=== PATIENT | male | born 1950 | race Caucasian/White ===

== ENCOUNTER → 2016-12-09 | Outpatient (CLI) | payer MEDICARE ==
[2016-12-09 14:43] LABS: Basophils # (A) 0.1 k/uL (0-0.2); Basophils % (A) 1 %; CH 30.9; CHCM 33.3; Eosinophils # (A) 0.3 k/uL (0-0.7); Eosinophils % (A) 3 %; HDW 2.51; HGB 14.2 gm/dL (13.0-17.5); Luc # (Auto) 0.32; Luc % (Auto) 3; Lymphocytes # (A) 2.4 k/uL (1.0-4.8); Lymphocytes % (A) 26 %; MCH 30.7 pg (25.0-35.0); MCHC 32.9 g/dL (31.0-37.0); MCV 93.3 fL (80.0-100.0); Mean Platelet Volume 8.1; Monocytes # (A) 0.7 k/uL (0-1.0); Monocytes % (A) 7 %; Neutrophils # (A) 5.7 k/uL (1.3-7.7); Neutrophils % (A) 60 %; RBC 4.61 m/uL (4.30-5.90); RDW 13.3 % (11.5-15.5); WBC 9.4 k/uL (3.8-10.6); WBC (Perox) 9.65
[2016-12-09 15:09] LABS: ALT 35 U/L (21-72); AST 23 U/L (17-59); Alkaline Phosphatase 61 U/L (38-126); Anion Gap 11 mmol/L; Blood Urea Nitrogen 21 mg/dL (9-20); C Reactive Protein 5.8 mg/L (<10.0); Calcium 10.2 mg/dL (8.4-10.2); Carbon Dioxide 26 mmol/L (22-30); Chloride 103 mmol/L (98-107); Creatine Kinase 63 U/L (55-170); Glucose 76 mg/dL (74-99); Non-African American GFR(MDRD) >60 (>60 ml/min/1.73 sqM); Potassium 4.2 mmol/L (3.5-5.1); Sodium 140 mmol/L (137-145); Total Bilirubin 0.4 mg/dL (0.2-1.3); Total Protein 6.9 g/dL (6.3-8.2)
[2016-12-09 16:17] LABS: Erythrocyte Sedimentation Rate 11 mm/hr (0-15)
[2016-12-10 01:05] LABS: Hemoglobin A1C 5.5 % (4.2-6.1)
== END ==
LOC: LABWHC1 13:51
PROVIDERS: ATTEND Internal Medicine
DX: J44.9 Chronic obstructive pulmonary disease, unspecified (principal); E78.5 Hyperlipidemia, unspecified; E11.9 Type 2 diabetes mellitus without complications; I10 Essential (primary) hypertension
CPT/HCPCS: 36415; 80053; 82550; 83036; 84439; 84443; 85025; 85652; 86140

== ENCOUNTER → 2017-06-15 | Outpatient (CLI) | payer MEDICARE ==
[2017-06-15 14:48] LABS: Basophils # (A) 0.1 k/uL (0-0.2); Basophils % (A) 1 %; CH 31.1; CHCM 33.5; Eosinophils # (A) 0.2 k/uL (0-0.7); Eosinophils % (A) 2 %; HCT 46.5 % (39.0-53.0); HGB 15.4 gm/dL (13.0-17.5); Luc # (Auto) 0.25; Luc % (Auto) 2; Lymphocytes # (A) 2.2 k/uL (1.0-4.8); Lymphocytes % (A) 19 %; MCH 30.9 pg (25.0-35.0); MCV 93.4 fL (80.0-100.0); Mean Platelet Volume 9.3; Monocytes # (A) 0.7 k/uL (0-1.0); Monocytes % (A) 6 %; Neutrophils % (A) 70 %; RBC 4.97 m/uL (4.30-5.90); RDW 14.7 % (11.5-15.5); WBC 11.5 k/uL (3.8-10.6); WBC (Perox) 11.63
[2017-06-15 15:11] LABS: ALT 43 U/L (21-72); AST 23 U/L (17-59); Alkaline Phosphatase 71 U/L (38-126); Anion Gap 13 mmol/L; Blood Urea Nitrogen 17 mg/dL (9-20); C Reactive Protein 5.3 mg/L (<10.0); Calcium 9.9 mg/dL (8.4-10.2); Carbon Dioxide 23 mmol/L (22-30); Chloride 104 mmol/L (98-107); Cholesterol 157 mg/dL (<200); Creatine Kinase 116 U/L (55-170); Glucose 93 mg/dL (74-99); HDL Cholesterol 46 mg/dL (40-60); Non-African American GFR(MDRD) >60 (>60 ml/min/1.73 sqM); Potassium 4.3 mmol/L (3.5-5.1); Sodium 140 mmol/L (137-145); Total Bilirubin 0.5 mg/dL (0.2-1.3); Total Protein 7.3 g/dL (6.3-8.2)
[2017-06-15 15:24] LABS: Prostate Specific Antigen 0.98 ng/mL (0.00-4.00)
[2017-06-15 17:13] LABS: Erythrocyte Sedimentation Rate 15 mm/hr (0-15)
[2017-06-15 19:43] LABS: ANA w/Reflex to Titer NEGATIVE (NEGATIVE)
[2017-06-15 20:19] LABS: Hemoglobin A1C 5.8 % (4.2-6.1)
[2017-06-15 21:57] LABS: Sex Hormone Binding Globulin 56.7 nmol/L (11.0-57.0); Testosterone, Bioavailable 78.5 ng/dL (60.8-409.9); Testosterone, Total 233 ng/dL (241-827)
== END | disposition home or self-care (01) ==
LOC: LABWHC1 13:57
PROVIDERS: ATTEND Internal Medicine
DX: Z00.00 Encounter for general adult medical examination without abnormal findings (principal); N40.0 Benign prostatic hyperplasia without lower urinary tract symptoms; E11.9 Type 2 diabetes mellitus without complications; E03.9 Hypothyroidism, unspecified; E55.9 Vitamin D deficiency, unspecified; E29.1 Testicular hypofunction; M35.9 Systemic involvement of connective tissue, unspecified; R21 Rash and other nonspecific skin eruption
CPT/HCPCS: 36415; 80053; 80061; 82040; 82272; 82306; 82550; 83036; 84153; 84270; 84403; 84443; 85025; 85652; 86038; 86140; 86225; 87045; 87046; 87390

== ENCOUNTER → 2017-08-18 | Outpatient (CLI) | payer MEDICARE ==
--- NOTE | 2017-08-18 14:09 | XR ---
EXAMINATION TYPE: XR lumbosacral spine min 4V DATE OF EXAM: 08/18/2017 CLINICAL HISTORY: pain COMPARISON: NONE TECHNIQUE: Frontal, lateral, and oblique images of the lumbar spine are obtained. FINDINGS: There are 5 lumbar type vertebral bodies identified. The lumbar spine shows satisfactory alignment without evidence of acute fracture or dislocation. Vertebral body heights are within normal limits. Moderate degenerative disc space narrowing and spondylosis. The overlying soft tissue appe ars unremarkable. Curvature is noted convex to the right. IMPRESSION: No acute fracture or dislocation is seen in the lumbar spine.ICD 10 NO FRACTURE, INITIAL EVALUATION
--- NOTE | 2017-08-18 14:19 | XR ---
EXAMINATION TYPE: XR sacroiliac joint comp BILAT DATE OF EXAM: 08/18/2017 COMPARISON: NONE HISTORY: Pain TECHNIQUE: 3 views obtained FINDINGS: Sacroiliac joints are patent bilaterally. No evidence for abnormal widening or sclerosis. N o bony destructive process seen. IMPRESSION: Sacroiliac joints are within normal limits.
== END | disposition home or self-care (01) ==
LOC: RADXRMAIN 13:23
PROVIDERS: ATTEND Internal Medicine
DX: M54.9 Dorsalgia, unspecified (principal)
CPT/HCPCS: 72110; 72202

== ENCOUNTER → 2017-08-21 | Outpatient (CLI) | payer MEDICARE ==
[2017-08-22 00:53] LABS: Prolactin 7.8 ng/mL (2.1-17.7)
== END | disposition home or self-care (01) ==
LOC: LABWHC1 16:06
PROVIDERS: ATTEND Internal Medicine
DX: E29.1 Testicular hypofunction (principal); N52.9 Male erectile dysfunction, unspecified
CPT/HCPCS: 36415; 82040; 83001; 83002; 84146; 84270; 84403

== ENCOUNTER → 2017-10-23 | Outpatient (CLI) | payer MEDICARE ==
[2017-10-23 12:54] LABS: Lithium 0.2 mmol/L
== END | disposition home or self-care (01) ==
LOC: LABWHC1 12:17
PROVIDERS: ATTEND Psychiatry & Neurology Psychiatry
DX: F31.9 Bipolar disorder, unspecified (principal)
CPT/HCPCS: 36415; 80178; 82565; 84443

== ENCOUNTER → 2017-12-14 | Outpatient (CLI) | payer MEDICARE ==
[2017-12-14 14:11] LABS: Basophils # (A) 0.1 k/uL (0-0.2); Basophils % (A) 1 %; Eosinophils # (A) 0.9 k/uL (0-0.7); Eosinophils % (A) 8 %; HCT 44.8 % (39.0-53.0); HGB 14.2 gm/dL (13.0-17.5); Lymphocytes # (A) 2.7 k/uL (1.0-4.8); Lymphocytes % (A) 24 %; MCH 28.7 pg (25.0-35.0); MCHC 31.7 g/dL (31.0-37.0); MCV 90.5 fL (80.0-100.0); Mean Platelet Volume 9.1; Monocytes # (A) 0.7 k/uL (0-1.0); Monocytes % (A) 6 %; Neutrophils # (A) 6.8 k/uL (1.3-7.7); Neutrophils % (A) 59 %; Platelet Count 250 k/uL (150-450); RBC 4.95 m/uL (4.30-5.90); RDW 13.7 % (11.5-15.5); WBC 11.5 k/uL (3.8-10.6)
== END | disposition home or self-care (01) ==
LOC: LABWHC1 13:31
PROVIDERS: ATTEND Internal Medicine
DX: J11.1 Influenza due to unidentified influenza virus with other respiratory manifestations (principal)
CPT/HCPCS: 36415; 85025; 87502

== ENCOUNTER → 2017-12-23 | Outpatient (CLI) | payer MEDICARE ==
[2017-12-23 14:08] LABS: ALT 31 U/L (21-72); AST 21 U/L (17-59); Lithium 0.2 mmol/L
== END | disposition home or self-care (01) ==
LOC: LABWHC1 13:38
PROVIDERS: ATTEND Psychiatry & Neurology Psychiatry
DX: F31.9 Bipolar disorder, unspecified (principal)
CPT/HCPCS: 36415; 80178; 82565; 84443; 84450; 84460

== ENCOUNTER → 2018-01-25 | Outpatient (CLI) | payer MEDICARE ==
[2018-01-25 14:48] LABS: Basophils # (A) 0.1 k/uL (0-0.2); Basophils % (A) 1 %; Eosinophils # (A) 0.4 k/uL (0-0.7); Eosinophils % (A) 4 %; HCT 45.4 % (39.0-53.0); Lymphocytes # (A) 2.4 k/uL (1.0-4.8); Lymphocytes % (A) 26 %; MCHC 33.1 g/dL (31.0-37.0); MCV 90.6 fL (80.0-100.0); Mean Platelet Volume 9.3; Monocytes # (A) 0.7 k/uL (0-1.0); Monocytes % (A) 8 %; Neutrophils # (A) 5.5 k/uL (1.3-7.7); Neutrophils % (A) 60 %; Platelet Count 249 k/uL (150-450); RBC 5.01 m/uL (4.30-5.90); RDW 13.4 % (11.5-15.5); WBC 9.1 k/uL (3.8-10.6)
[2018-01-25 14:59] LABS: Lithium <0.2 mmol/L
[2018-01-25 15:16] LABS: T4, Free (Free Thyroxine) 0.91 ng/dL (0.78-2.19)
== END | disposition home or self-care (01) ==
LOC: LABWHC1 13:31
PROVIDERS: ATTEND Psychiatry & Neurology Psychiatry
DX: E11.9 Type 2 diabetes mellitus without complications (principal); E03.9 Hypothyroidism, unspecified
CPT/HCPCS: 36415; 80178; 82565; 84439; 84443; 85025

== ENCOUNTER → 2018-02-24 | Outpatient (CLI) | payer MEDICARE ==
[2018-02-24 12:35] LABS: MCH 30.7 pg (25.0-35.0); MCHC 33.3 g/dL (31.0-37.0); MCV 92.1 fL (80.0-100.0); Mean Platelet Volume 8.8; Platelet Count 227 k/uL (150-450); RBC 4.88 m/uL (4.30-5.90); RDW 13.7 % (11.5-15.5); WBC 12.8 k/uL (3.8-10.6)
[2018-02-24 12:41] LABS: ALT 44 U/L (21-72); AST 17 U/L (17-59); Anion Gap 12 mmol/L; Carbon Dioxide 27 mmol/L (22-30); Chloride 100 mmol/L (98-107); Lithium <0.2 mmol/L; Potassium 4.4 mmol/L (3.5-5.1); Sodium 139 mmol/L (137-145)
== END | disposition home or self-care (01) ==
LOC: LABWHC1 12:14
PROVIDERS: ATTEND Psychiatry & Neurology Psychiatry
DX: F33.3 Major depressive disorder, recurrent, severe with psychotic symptoms (principal)
CPT/HCPCS: 36415; 80051; 80178; 82565; 84443; 84450; 84460; 85027

== ENCOUNTER → 2018-02-26 | Outpatient (CLI) | payer MEDICARE ==
[2018-02-26 13:13] LABS: T4, Free (Free Thyroxine) 1.32 ng/dL (0.78-2.19)
[2018-02-26 21:01] LABS: Hemoglobin A1C 6.2 % (4.0-6.0)
== END | disposition home or self-care (01) ==
LOC: LABWHC1 12:02
PROVIDERS: ATTEND Internal Medicine
DX: E11.9 Type 2 diabetes mellitus without complications (principal); E03.9 Hypothyroidism, unspecified
CPT/HCPCS: 36415; 82947; 83036; 84439

== ENCOUNTER → 2018-04-07 | Outpatient (CLI) | payer MEDICARE ==
[2018-04-07 14:57] LABS: HGB 14.9 gm/dL (13.0-17.5); MCH 30.7 pg (25.0-35.0); MCV 90.5 fL (80.0-100.0); Mean Platelet Volume 8.6; Platelet Count 246 k/uL (150-450); RBC 4.87 m/uL (4.30-5.90); RDW 13.9 % (11.5-15.5); WBC 10.4 k/uL (3.8-10.6)
[2018-04-07 15:24] LABS: Potassium 4.4 mmol/L (3.5-5.1)
[2018-04-08 01:56] LABS: Hemoglobin A1C 6.1 % (4.0-6.0)
== END | disposition home or self-care (01) ==
LOC: LABWHC1 14:19
PROVIDERS: ATTEND Psychiatry & Neurology Psychiatry
DX: F33.42 Major depressive disorder, recurrent, in full remission (principal)
CPT/HCPCS: 36415; 80051; 83036; 84443; 84450; 84460; 85027

== ENCOUNTER → 2018-06-14 | Outpatient (CLI) | payer MEDICARE ==
[2018-06-14 14:10] LABS: Anion Gap 10 mmol/L; Carbon Dioxide 27 mmol/L (22-30); Chloride 104 mmol/L (98-107); Potassium 4.4 mmol/L (3.5-5.1); Sodium 141 mmol/L (137-145)
[2018-06-14 14:50] LABS: Lithium <0.2 mmol/L
== END | disposition home or self-care (01) ==
LOC: LABWHC1 13:10
PROVIDERS: ATTEND Psychiatry & Neurology Psychiatry
DX: F31.9 Bipolar disorder, unspecified (principal)
CPT/HCPCS: 36415; 80051; 80178; 82565; 84443

== ENCOUNTER → 2018-07-12 | Outpatient (CLI) | payer MEDICARE ==
--- NOTE | 2018-07-12 16:00 | XR ---
EXAMINATION TYPE: XR chest 2V DATE OF EXAM: 07/12/2018 COMPARISON: 08/21/2011 HISTORY: Shortness of breath TECHNIQUE: Frontal and lateral views of the chest are obtained. FINDINGS: Scattered senescent parenchymal changes noted. Hyperinflation compatible with COPD. No evidence for infiltrate. No evidence for atelectasis. Chronic increased density right medial lung base. Heart size is stable. Mediastinal structures are stable and grossly unremarkable. No evidence for hilar prominence. Degenerative changes dorsal spine. IMPRESSION: 1. No evidence for acute pulmonary disease.
[2018-07-12 16:26] LABS: Basophils # (A) 0.1 k/uL (0-0.2); Basophils % (A) 1 %; Eosinophils # (A) 0.3 k/uL (0-0.7); Eosinophils % (A) 4 %; HCT 43.8 % (39.0-53.0); Lymphocytes # (A) 2.3 k/uL (1.0-4.8); Lymphocytes % (A) 26 %; MCH 29.6 pg (25.0-35.0); MCV 92.4 fL (80.0-100.0); Mean Platelet Volume 8.6; Monocytes # (A) 0.6 k/uL (0-1.0); Monocytes % (A) 7 %; Neutrophils # (A) 5.3 k/uL (1.3-7.7); Neutrophils % (A) 60 %; Platelet Count 260 k/uL (150-450); RBC 4.74 m/uL (4.30-5.90); RDW 13.4 % (11.5-15.5); WBC 8.9 k/uL (3.8-10.6)
== END | disposition home or self-care (01) ==
LOC: RADXRMAIN 15:30
PROVIDERS: ATTEND Internal Medicine
DX: J40 Bronchitis, not specified as acute or chronic (principal); J06.9 Acute upper respiratory infection, unspecified
CPT/HCPCS: 36415; 71046; 85025

== ENCOUNTER → 2018-09-01 | Outpatient (CLI) | payer MEDICARE ==
[2018-09-01 14:00] LABS: Basophils # (A) 0.1 k/uL (0-0.2); Basophils % (A) 1 %; Eosinophils # (A) 0.3 k/uL (0-0.7); Eosinophils % (A) 3 %; HGB 15.2 gm/dL (13.0-17.5); Lymphocytes # (A) 2.2 k/uL (1.0-4.8); Lymphocytes % (A) 25 %; MCH 30.7 pg (25.0-35.0); MCHC 33.7 g/dL (31.0-37.0); MCV 91.2 fL (80.0-100.0); Mean Platelet Volume 8.8; Monocytes # (A) 0.7 k/uL (0-1.0); Monocytes % (A) 7 %; Neutrophils # (A) 5.4 k/uL (1.3-7.7); Neutrophils % (A) 61 %; Platelet Count 210 k/uL (150-450); RBC 4.94 m/uL (4.30-5.90); RDW 13.7 % (11.5-15.5); WBC 8.9 k/uL (3.8-10.6)
[2018-09-01 14:43] LABS: Erythrocyte Sedimentation Rate 10 mm/hr (0-15)
[2018-09-01 19:33] LABS: Folate, Serum 6.8 ng/mL; Vitamin D 25 Hydroxy 34.2 ng/mL (30.0-100.0)
[2018-09-01 20:03] LABS: Albumin 4.6 g/dL (3.80-4.90); Albumin/Globulin Ratio 2.71 (1.20-2.10); Anion Gap 9.2 mmol/L (4.00-12.00); C Reactive Protein 0.5 mg/dL (0.0-0.8); Calcium 9.6 mg/dL (8.7-10.3); Carbon Dioxide 26.8 mmol/L (21.6-31.8); Globulin 1.7 g/dL (2.1-3.7); LDL Cholesterol,Calculated 59.2 mg/dL (0.0-131.0); Lithium 0.1 mmol/L (1.0-1.2); Potassium 4.3 mmol/L (3.5-5.5); Total Bilirubin 0.4 mg/dL (0.3-1.2); Total Protein 6.3 g/dL (6.2-8.2); VLDL Calculation 68.8 mg/dL (5.00-40.00)
[2018-09-01 21:38] LABS: Hemoglobin A1C 6.3 % (4.0-6.0)
== END | disposition home or self-care (01) ==
LOC: LABWHC1 12:51
PROVIDERS: ATTEND Psychiatry & Neurology Psychiatry
DX: E11.9 Type 2 diabetes mellitus without complications (principal); E78.5 Hyperlipidemia, unspecified; I10 Essential (primary) hypertension; E55.9 Vitamin D deficiency, unspecified; K57.92 Diverticulitis of intestine, part unspecified, without perforation or abscess without bleeding; F32.3 Major depressive disorder, single episode, severe with psychotic features; J06.9 Acute upper respiratory infection, unspecified; J12.9 Viral pneumonia, unspecified
CPT/HCPCS: 36415; 80053; 80061; 80178; 82272; 82306; 82550; 82607; 82746; 83036; 84153; 84439; 84443; 85025; 85652; 86140; 87045; 87046

== ENCOUNTER → 2018-11-17 | Outpatient (CLI) | payer MEDICARE ==
[2018-11-17 21:25] LABS: Anion Gap 9.8 mmol/L (4.00-12.00); Carbon Dioxide 24.2 mmol/L (21.6-31.8); Lithium 0.4 mmol/L (1.0-1.2); Potassium 4.4 mmol/L (3.5-5.5)
== END | disposition home or self-care (01) ==
LOC: LABWHC1 12:39
PROVIDERS: ATTEND Psychiatry & Neurology Psychiatry
DX: F32.4 Major depressive disorder, single episode, in partial remission (principal)
CPT/HCPCS: 36415; 80051; 80178; 82565; 84443

== ENCOUNTER → 2018-12-28 | Outpatient (CLI) | payer MEDICARE ==
[2018-12-28 12:11] LABS: HCT 46.7 % (39.0-53.0); HGB 14.9 gm/dL (13.0-17.5); MCH 28.7 pg (25.0-35.0); MCHC 31.8 g/dL (31.0-37.0); MCV 90.4 fL (80.0-100.0); Platelet Count 240 k/uL (150-450); RBC 5.17 m/uL (4.30-5.90); RDW 13.4 % (11.5-15.5); WBC 10.6 k/uL (3.8-10.6)
[2018-12-28 16:51] LABS: Anion Gap 9.1 mmol/L (4.00-12.00); Carbon Dioxide 25.9 mmol/L (21.6-31.8); Lithium 0.4 mmol/L (1.0-1.2); Potassium 4.2 mmol/L (3.5-5.5)
== END | disposition home or self-care (01) ==
LOC: LABWHC1 10:11
PROVIDERS: ATTEND Psychiatry & Neurology Psychiatry
DX: F33.1 Major depressive disorder, recurrent, moderate (principal); E03.9 Hypothyroidism, unspecified
CPT/HCPCS: 36415; 80051; 80178; 82565; 82785; 84439; 84443; 85027

== ENCOUNTER → 2019-01-31 | Outpatient (CLI) | payer MEDICARE ==
[2019-01-31 16:48] LABS: T4, Free (Free Thyroxine) 0.9 ng/dL (0.80-1.80)
[2019-01-31 16:53] LABS: Lithium 0.1 mmol/L (1.0-1.2)
[2019-01-31 19:46] LABS: Hemoglobin A1C 6.3 % (4.0-6.0)
== END | disposition home or self-care (01) ==
LOC: LABWHC1 11:32
PROVIDERS: ATTEND Psychiatry & Neurology Psychiatry
DX: E11.9 Type 2 diabetes mellitus without complications (principal); E78.5 Hyperlipidemia, unspecified; I10 Essential (primary) hypertension; E03.9 Hypothyroidism, unspecified; F32.2 Major depressive disorder, single episode, severe without psychotic features
CPT/HCPCS: 36415; 80178; 82565; 83036; 84439; 84443

== ENCOUNTER → 2019-05-20 | Outpatient (CLI) | payer MEDICARE ==
[2019-05-20 12:39] LABS: HCT 41.3 % (39.0-53.0); HGB 13.9 gm/dL (13.0-17.5); MCH 31.1 pg (25.0-35.0); MCHC 33.7 g/dL (31.0-37.0); MCV 92.3 fL (80.0-100.0); Mean Platelet Volume 9.4; Platelet Count 236 k/uL (150-450); RBC 4.48 m/uL (4.30-5.90); RDW 14.7 % (11.5-15.5); WBC 10.2 k/uL (3.8-10.6)
[2019-05-20 16:58] LABS: African American GFR (CKD) 107.9 (60.0-200.0); Anion Gap 6.9 mmol/L (4.00-12.00); Carbon Dioxide 23.1 mmol/L (21.6-31.8); Lithium 0.2 mmol/L (0.5-1.2); Potassium 4.2 mmol/L (3.5-5.5)
== END | disposition home or self-care (01) ==
LOC: LABWHC1 11:24
PROVIDERS: ATTEND Psychiatry & Neurology Psychiatry
DX: F33.41 Major depressive disorder, recurrent, in partial remission (principal)
CPT/HCPCS: 36415; 80051; 80178; 82565; 84443; 85027

== ENCOUNTER → 2019-07-12 | Outpatient (CLI) | payer MEDICARE ==
[2019-07-12 11:21] LABS: HCT 42.8 % (39.0-53.0); HGB 14.2 gm/dL (13.0-17.5); MCH 31.2 pg (25.0-35.0); MCHC 33.1 g/dL (31.0-37.0); MCV 94.1 fL (80.0-100.0); Mean Platelet Volume 6.9; Platelet Count 253 k/uL (150-450); RBC 4.55 m/uL (4.30-5.90); WBC 9.8 k/uL (3.8-10.6)
[2019-07-12 19:39] LABS: ALT 26 U/L (10-49); AST 20 U/L (14-35); African American GFR (CKD) 107.1 (60.0-200.0); Lithium <0.1 mmol/L (0.5-1.2)
== END | disposition home or self-care (01) ==
LOC: LABWHC1 10:41
PROVIDERS: ATTEND Psychiatry & Neurology Psychiatry
DX: F33.41 Major depressive disorder, recurrent, in partial remission (principal)
CPT/HCPCS: 36415; 80178; 82565; 84443; 84450; 84460; 85027

== ENCOUNTER → 2019-08-12 | Outpatient (CLI) | payer MEDICARE ==
[2019-08-12 19:54] LABS: Folate, Serum 5.7 ng/mL
[2019-08-12 19:57] LABS: African American GFR (CKD) 102.1 (60.0-200.0); Lithium 0.3 mmol/L (0.5-1.2); Non-African American GFR(CKD) 88.1 (60.0-200.0)
== END | disposition home or self-care (01) ==
LOC: LABWHC1 11:21
PROVIDERS: ATTEND Psychiatry & Neurology Psychiatry
DX: F32.2 Major depressive disorder, single episode, severe without psychotic features (principal)
CPT/HCPCS: 36415; 80178; 82565; 82607; 82746; 84443

== ENCOUNTER → 2019-09-05 | Outpatient (CLI) | payer MEDICARE ==
[2019-09-05 13:24] LABS: HCT 42.8 % (39.0-53.0); HGB 14.1 gm/dL (13.0-17.5); MCH 30.7 pg (25.0-35.0); MCHC 32.9 g/dL (31.0-37.0); MCV 93.2 fL (80.0-100.0); Mean Platelet Volume 8.9; Platelet Count 239 k/uL (150-450); RDW 12.8 % (11.5-15.5); WBC 10.8 k/uL (3.8-10.6)
[2019-09-05 19:43] LABS: African American GFR (CKD) 102.1 (60.0-200.0); Anion Gap 9.8 mmol/L (4.00-12.00); Carbon Dioxide 26.2 mmol/L (21.6-31.8); Lithium 0.4 mmol/L (0.5-1.2); Non-African American GFR(CKD) 88.1 (60.0-200.0); Potassium 3.9 mmol/L (3.5-5.5)
== END | disposition home or self-care (01) ==
LOC: LABWHC1 13:00
PROVIDERS: ATTEND Psychiatry & Neurology Psychiatry
DX: F33.41 Major depressive disorder, recurrent, in partial remission (principal); E11.9 Type 2 diabetes mellitus without complications
CPT/HCPCS: 36415; 80051; 80178; 82565; 84443; 84450; 84460; 85027

== ENCOUNTER → 2019-09-12 | Outpatient (CLI) | payer MEDICARE ==
[2019-09-12 12:46] LABS: Basophils # (A) 0.1 k/uL (0-0.2); Basophils % (A) 1 %; Eosinophils # (A) 0.3 k/uL (0-0.7); Eosinophils % (A) 3 %; HCT 43.3 % (39.0-53.0); HGB 14.3 gm/dL (13.0-17.5); Lymphocytes # (A) 1.8 k/uL (1.0-4.8); Lymphocytes % (A) 20 %; MCH 30.7 pg (25.0-35.0); MCHC 33.1 g/dL (31.0-37.0); MCV 92.8 fL (80.0-100.0); Mean Platelet Volume 9.3; Monocytes # (A) 0.6 k/uL (0-1.0); Monocytes % (A) 7 %; Neutrophils % (A) 67 %; Platelet Count 241 k/uL (150-450); RBC 4.67 m/uL (4.30-5.90)
[2019-09-12 13:42] LABS: Erythrocyte Sedimentation Rate 13 mm/hr (0-15)
[2019-09-12 19:17] LABS: ALT 24 U/L (10-49); AST 18 U/L (14-35); African American GFR (CKD) 89.9 (60.0-200.0); Albumin/Globulin Ratio 3.29 (1.60-3.17); Alkaline Phosphatase 60 U/L (41-126); C Reactive Protein <0.4 mg/dL (0.0-0.8); Calcium 9.5 mg/dL (8.7-10.3); Carbon Dioxide 22.8 mmol/L (21.6-31.8); Chloride 107 mmol/L (96-109); Creatine Kinase 89 U/L (35-257); Globulin 1.4 g/dL (1.6-3.3); Glucose 135 mg/dL (70-110); Magnesium 2.1 mg/dL (1.5-2.4); Non-African American GFR(CKD) 77.5 (60.0-200.0); Phosphorus 3.2 mg/dL (2.4-5.1); Potassium 4.2 mmol/L (3.5-5.5); Sodium 136 mmol/L (135-145); Total Bilirubin 0.4 mg/dL (0.3-1.2)
== END | disposition home or self-care (01) ==
LOC: LABWHC1 11:25
PROVIDERS: ATTEND Internal Medicine
DX: N40.0 Benign prostatic hyperplasia without lower urinary tract symptoms (principal); J44.9 Chronic obstructive pulmonary disease, unspecified; E78.5 Hyperlipidemia, unspecified; E11.65 Type 2 diabetes mellitus with hyperglycemia; E03.9 Hypothyroidism, unspecified; E66.9 Obesity, unspecified; E55.9 Vitamin D deficiency, unspecified
CPT/HCPCS: 36415; 80053; 82550; 83735; 84100; 84443; 85025; 85652; 86140

== ENCOUNTER → 2019-10-20 | Outpatient (CLI) | payer MEDICARE ==
[2019-10-21 01:31] LABS: African American GFR (CKD) 102.1 (60.0-200.0); Anion Gap 10.5 mmol/L (4.00-12.00); Carbon Dioxide 22.5 mmol/L (21.6-31.8); Lithium 0.2 mmol/L (0.5-1.2); Non-African American GFR(CKD) 88.1 (60.0-200.0); Potassium 4.2 mmol/L (3.5-5.5)
== END | disposition home or self-care (01) ==
LOC: LABWHC1 13:01
PROVIDERS: ATTEND Psychiatry & Neurology Psychiatry
DX: F33.41 Major depressive disorder, recurrent, in partial remission (principal)
CPT/HCPCS: 36415; 80051; 80178; 82565; 84443

== ENCOUNTER → 2020-04-02 | Outpatient (CLI) | payer MEDICARE ==
[2020-04-02 15:14] LABS: HCT 42.9 % (39.0-53.0); HGB 14.4 gm/dL (13.0-17.5); MCH 31.7 pg (25.0-35.0); MCHC 33.5 g/dL (31.0-37.0); MCV 94.4 fL (80.0-100.0); Mean Platelet Volume 9.2; Platelet Count 218 k/uL (150-450); RBC 4.54 m/uL (4.30-5.90); RDW 13.2 % (11.5-15.5); WBC 9.3 k/uL (3.8-10.6)
[2020-04-02 20:25] LABS: African American GFR (CKD) 89.9 (60.0-200.0); Lithium 0.2 mmol/L (0.5-1.2); Non-African American GFR(CKD) 77.5 (60.0-200.0)
[2020-04-02 22:33] LABS: Hemoglobin A1C 6.4 % (4.0-6.0)
== END | disposition home or self-care (01) ==
LOC: LABWHC1 14:05
PROVIDERS: ATTEND Psychiatry & Neurology Psychiatry
DX: F33.41 Major depressive disorder, recurrent, in partial remission (principal)
CPT/HCPCS: 36415; 80178; 82565; 83036; 84443; 84450; 84460; 85027

== ENCOUNTER → 2020-06-18 | Outpatient (CLI) | payer MEDICARE ==
[2020-06-18 14:39] LABS: HGB 14.1 gm/dL (13.0-17.5); MCH 29.2 pg (25.0-35.0); Mean Platelet Volume 9.2; Platelet Count 216 k/uL (150-450); RBC 4.83 m/uL (4.30-5.90); RDW 13.3 % (11.5-15.5); WBC 8.6 k/uL (3.8-10.6)
[2020-06-18 18:48] LABS: Folate, Serum 8.8 ng/mL
[2020-06-18 18:52] LABS: ALT 33 U/L (10-49); AST 26 U/L (14-35); African American GFR (CKD) 102.1 (60.0-200.0); Lithium <0.1 mmol/L (0.5-1.2); Non-African American GFR(CKD) 88.1 (60.0-200.0)
== END | disposition home or self-care (01) ==
LOC: LABWHC1 13:17
PROVIDERS: ATTEND Psychiatry & Neurology Psychiatry
DX: F33.41 Major depressive disorder, recurrent, in partial remission (principal); E11.9 Type 2 diabetes mellitus without complications
CPT/HCPCS: 36415; 80178; 82565; 82607; 82746; 84443; 84450; 84460; 85027

== ENCOUNTER → 2020-09-17 | Outpatient (CLI) | payer MEDICARE ==
[2020-09-17 15:03] LABS: Basophils # (A) 0.1 k/uL (0-0.2); Basophils % (A) 1 %; Eosinophils # (A) 0.3 k/uL (0-0.7); Eosinophils % (A) 3 %; HCT 42.6 % (39.0-53.0); HGB 14.2 gm/dL (13.0-17.5); Lymphocytes # (A) 2.3 k/uL (1.0-4.8); Lymphocytes % (A) 24 %; MCH 30.7 pg (25.0-35.0); MCHC 33.4 g/dL (31.0-37.0); MCV 91.9 fL (80.0-100.0); Mean Platelet Volume 9.1; Monocytes # (A) 0.5 k/uL (0-1.0); Monocytes % (A) 5 %; Neutrophils % (A) 64 %; Platelet Count 222 k/uL (150-450); RBC 4.64 m/uL (4.30-5.90); RDW 13.6 % (11.5-15.5); WBC 9.4 k/uL (3.8-10.6)
[2020-09-17 17:47] LABS: Erythrocyte Sedimentation Rate 13 mm/hr (0-15)
[2020-09-18 00:29] LABS: ALT 30 U/L (10-49); AST 25 U/L (14-35); African American GFR (CKD) 101.4 (60.0-200.0); Albumin/Globulin Ratio 2.47 (1.60-3.17); Alkaline Phosphatase 61 U/L (41-126); BUN/Creat Ratio 16.67 Ratio (12.00-20.00); C Reactive Protein <0.4 mg/dL (0.0-0.8); Calcium 9.7 mg/dL (8.7-10.3); Chloride 106 mmol/L (96-109); Chol/HDL Ratio 4.16; Cholesterol 179 mg/dL (0-200); Creatine Kinase 106 U/L (35-257); Globulin 1.9 g/dL (1.6-3.3); Glucose 119 mg/dL (70-110); Non-African American GFR(CKD) 87.5 (60.0-200.0); Potassium 3.9 mmol/L (3.5-5.5); Prostate Specific Antigen 0.2 ng/mL (0.0-4.5); Sodium 141 mmol/L (135-145); Total Bilirubin 0.4 mg/dL (0.3-1.2); Total Protein 6.6 g/dL (6.2-8.2)
[2020-09-18 03:08] LABS: Hemoglobin A1C 6.4 % (4.0-6.0)
== END | disposition home or self-care (01) ==
LOC: LABWHC1 13:59
PROVIDERS: ATTEND Internal Medicine
DX: Z00.00 Encounter for general adult medical examination without abnormal findings (principal); N40.0 Benign prostatic hyperplasia without lower urinary tract symptoms; J44.9 Chronic obstructive pulmonary disease, unspecified; I10 Essential (primary) hypertension; E78.5 Hyperlipidemia, unspecified; E11.65 Type 2 diabetes mellitus with hyperglycemia; E55.9 Vitamin D deficiency, unspecified; M81.0 Age-related osteoporosis without current pathological fracture
CPT/HCPCS: 36415; 80053; 80061; 82306; 82550; 83036; 84153; 84439; 84443; 85025; 85652; 86140

== ENCOUNTER → 2020-09-28 | Outpatient (CLI) | payer MEDICARE ==
--- NOTE | 2020-09-28 12:59 | US ---
EXAMINATION TYPE: US abdomen complete DATE OF EXAM: 09/28/2020 COMPARISON: NONE CLINICAL HISTORY: R10.84 Abdominal pain. Generalized abdominal pain and change in bowel habits. EXAM MEASUREMENTS: Liver Length: 14.5 cm Gallbladder Wall: 0.2 cm CBD: 0.5 cm Spleen: 12.8 cm Right Kidney: 14.4 x 5.5 x 5.9 cm Left Kidney: 13.7 x 5.1 x 5.8 cm Technically difficult study due to midline bowel gas and patient body habitus. Pancreas: visualized portions wnl Liver: difficult to penetrate, moderate fatty infiltration of the liver Gallbladder: No stones seen Evidence for sonographic Chow's sign: No CBD: wnl Spleen: wnl Right Kidney: No hydronephrosis or masses seen Left Kidney: No hydronephrosis or masses seen Upper IVC: wnl Abd Aorta: not visualized due to patient body habitus. IMPRESSION: 1. Moderate fatty infiltration liver
[2020-09-28 14:08] LABS: Appearance,Urine Clear (Clear); Bilirubin,Urine Negative (Negative); Blood,Urine Negative (Negative); Color,Urine Yellow; Glucose,Urine (UA) Negative (Negative); Ketones,Urine Negative (Negative); Leukocyte Esterase,Urine Moderate (Negative); Mucus,Urine Moderate /hpf; Nitrite,Urine Negative (Negative); PH, Urine 5.5 (5.0-8.0); Protein,Urine Trace (Negative); Specific Gravity,Urine 1.023 (1.001-1.035); Squamous Epithelial Cell,Urine <1 /hpf (0-4); Urobilinogen,Urine <2.0 mg/dL (<2.0); WBC,Urine 8 /hpf (0-5)
[2020-09-28 14:15] LABS: Basophils # (A) 0.1 k/uL (0-0.2); Basophils % (A) 1 %; Eosinophils # (A) 0.3 k/uL (0-0.7); Eosinophils % (A) 2 %; HCT 42.8 % (39.0-53.0); HGB 14.2 gm/dL (13.0-17.5); Lymphocytes # (A) 2.3 k/uL (1.0-4.8); Lymphocytes % (A) 16 %; MCH 30.3 pg (25.0-35.0); MCHC 33.3 g/dL (31.0-37.0); MCV 91.2 fL (80.0-100.0); Mean Platelet Volume 9.5; Monocytes # (A) 1.1 k/uL (0-1.0); Monocytes % (A) 8 %; Neutrophils # (A) 10.6 k/uL (1.3-7.7); Neutrophils % (A) 73 %; Platelet Count 223 k/uL (150-450); RBC 4.69 m/uL (4.30-5.90); RDW 13.5 % (11.5-15.5); WBC 14.5 k/uL (3.8-10.6)
[2020-09-28 14:16] LABS: Creatinine,Urine Random 189.3 mg/dL; Protein/Creatinine Ratio,Urine 0.074
[2020-09-28 14:28] LABS: ALT 27 U/L (4-49); AST 21 U/L (17-59); African American GFR (CKD) >90 (>60 ml/min/1.73 sqM); Albumin 4.3 g/dL (3.5-5.0); Alkaline Phosphatase 62 U/L (38-126); Anion Gap 7 mmol/L; Blood Urea Nitrogen 18 mg/dL (9-20); Calcium 9.6 mg/dL (8.4-10.2); Carbon Dioxide 28 mmol/L (22-30); Chloride 102 mmol/L (98-107); Cholesterol 164 mg/dL (<200); Creatine Kinase 78 U/L (55-170); Glucose 137 mg/dL (74-99); HDL Cholesterol 45 mg/dL (40-60); LDL Cholesterol,Calculated 81 mg/dL (0-99); Non-African American GFR(CKD) 89 (>60 ml/min/1.73 sqM); Potassium 4.1 mmol/L (3.5-5.1); Sodium 137 mmol/L (137-145); Total Bilirubin 0.6 mg/dL (0.2-1.3); Triglycerides 190 mg/dL (<150)
[2020-09-28 15:10] LABS: C Reactive Protein 12.6 mg/L (<10.0); Lithium 0.4 mmol/L
[2020-09-28 16:15] LABS: Erythrocyte Sedimentation Rate 8 mm/hr (0-15)
[2020-09-28 22:21] LABS: Urine Creatinine 177.4 mg/dL
[2020-09-29 02:57] LABS: Prostate Specific Antigen 0.6 ng/mL (0.0-4.5)
== END | disposition home or self-care (01) ==
LOC: RADUSWWP 12:10
PROVIDERS: ATTEND Internal Medicine
DX: K76.0 Fatty (change of) liver, not elsewhere classified (principal); Z00.00 Encounter for general adult medical examination without abnormal findings; N40.0 Benign prostatic hyperplasia without lower urinary tract symptoms; I10 Essential (primary) hypertension; E11.65 Type 2 diabetes mellitus with hyperglycemia; E66.9 Obesity, unspecified; R80.9 Proteinuria, unspecified; E55.9 Vitamin D deficiency, unspecified; F41.9 Anxiety disorder, unspecified; F31.9 Bipolar disorder, unspecified; Z88.0 Allergy status to penicillin
CPT/HCPCS: 36415; 76700; 80053; 80061; 80178; 81001; 82043; 82306; 82550; 82570; 83036; 84153; 84156; 84439; 84443; 85025; 85652; 86140

== ENCOUNTER → 2021-01-07 | Outpatient (CLI) | payer MEDICARE ==
[2021-01-08 15:35] LABS: T4, Free (Free Thyroxine) 1.1 ng/dL (0.80-1.80)
== END | disposition home or self-care (01) ==
LOC: LABWHC1 13:57
PROVIDERS: ATTEND Psychiatry & Neurology Psychiatry
DX: E03.9 Hypothyroidism, unspecified (principal)
CPT/HCPCS: 36415; 84439; 84443; 84481

== ENCOUNTER 2021-01-31 12:05 | Inpatient (IN) | payer MEDICARE ==
[2021-01-31] MEDS ORDERED: ASPIRIN 81 MG PO STA (12:24)
[2021-01-31] MEDS ORDERED: NITROGLYCERIN SL TABS 0.4 MG TAB SUBLINGUAL STA (12:24)
[2021-01-31] MEDS ORDERED: HEPARIN SODIUM,PORCINE/PF 5,000 UNIT/0.5 ML SYRINGE SQ STA (12:30)
[2021-01-31] MEDS ORDERED: ATORVASTATIN 80 MG TAB PO STA (12:30)
[2021-01-31] MEDS ORDERED: HEPARIN SODIUM 1,000 UN/ML (10ML VL) IV ONE (12:33)
--- NOTE | 2021-01-31 12:35 | ED ---
General Adult HPI - General Chief complaint: Shortness of Breath Stated complaint: JOE,Chest Pain Time Seen by Provider: 01/31/21 12:10 Source: patient, RN notes reviewed, old records reviewed, Caregiver Mode of arrival: wheelchair Limitations: no limitations - History of Present Illness Initial comments: This is a 70-year-old male who presents emergency Department with a past medical history significant for diabetes hypertension high cholesterol and currently smokes. Patient comes in today stating it difficult to breathing his morning when he woke this got significantly worse. Patient denies any chest pain or pressure. Patient's denies any nausea but he states he was very hot and feels lightheaded. Patient denies abdominal pain patient's nausea vomiting diarrhea. Patient denies any recent fever chills or cough per patient denies any swelling to legs or calf tenderness. Patient denies any previous heart history. Patient states he does not take any breathing treatments for his breathing in the past. - Related Data Allergies Allergy/AdvReac Type Severity Reaction Status Date / Time No Known Allergies Allergy Verified 01/31/21 12:37 Review of Systems ROS Statement: Those systems with pertinent positive or pertinent negative responses have been documented in the HPI. ROS Other: All systems not noted in ROS Statement are negative. Past Medical History Past Medical History: Unable to Obtain History of Any Multi-Drug Resistant Organisms: Unobtainable Past Surgical History: Unable to Obtain Past Psychological History: Unable to Obtain Smoking Status: Unknown if ever smoked Past Alcohol Use History: Unable to Obtain Past Drug Use History: None Reported General Exam - General Exam Comments Initial Comments: GENERAL: Patient is well-developed and well-nourished. Patient is nontoxic and well- hydrated and is in mild distress. ENT: Neck is soft and supple. No significant lymphadenopathy is noted. Oropharynx is clear. Moist mucous membranes. Neck has full range of motion without eliciting any pain. EYES: The sclera were anicteric and conjunctiva were pink and moist. Extraocular movements were intact and pupils were equal round and reactive to light. Eyelids were unremarkable. PULMONARY: Unlabored respirations. Good breath sounds bilaterally. No audible rales rhonchi or wheezing was noted. CARDIOVASCULAR: There is a regular rate and rhythm without any murmurs gallops or rubs. ABDOMEN: Soft and nontender with normal bowel sounds. SKIN: Skin is clear with no lesions or rashes and otherwise unremarkable. NEUROLOGIC: Patient is alert and oriented x3. Cranial nerves II through XII are grossly intact. Motor and sensory are also intact. Normal speech, volume and content. Symmetrical smile. MUSCULOSKELETAL: Normal extremities with adequate strength and full range of motion. LYMPHATICS: No significant lymphadenopathy is noted PSYCHIATRIC: Normal psychiatric evaluation. Limitations: no limitations Course Vital Signs 01/31/21 12:06 Temperature 97.9 F Pulse Rate 114 H Respiratory 23 Rate Blood Pressure 232/160 O2 Sat by Pulse 92 L Oximetry Medical Decision Making - Medical Decision Making EKG shows sinus tachycardia at a rate of 115 bpm [place] interval is 184 QRS is 104 QT interval 322 QTC is 445. Patient's EKG shows ST segment elevation in precordial leads V1 through the 6. Patient also has some minimal ST segment elevation in inferior leads and ST segment depression in leads 1 and aVL. After seeing EKG I called a STEMI overhead cardiology arrived shortly theresilase r. Patient received heparin bolus emergency department along with nitroglycerin sublingual and aspirin. Patient will be taken to the cardiac catheterization lab. I spoke with cardiology 2. I also spoke with Dr. Forrester and he agreed to admit the patient admitted the patient I wrote some admitting orders Chest x-ray shows pulmonary edema - Lab Data Result diagrams: 01/31/21 12:32 Critical Care Time Critical Care Time: Yes Total Critical Care Time: 35 Disposition Clinical Impression: STEMI (ST elevation myocardial infarction) Disposition: ADMITTED IP TO THIS [facility] Time of Disposition: 12:34
[2021-01-31 12:38] LABS: Basophils # (A) 0.1 k/uL (0-0.2); Basophils % (A) 1 %; Eosinophils # (A) 0.3 k/uL (0-0.7); Eosinophils % (A) 1 %; HCT 44.6 % (39.0-53.0); HGB 14.1 gm/dL (13.0-17.5); Lymphocytes # (A) 4.1 k/uL (1.0-4.8); Lymphocytes % (A) 23 %; MCH 29.8 pg (25.0-35.0); MCHC 31.6 g/dL (31.0-37.0); MCV 94.3 fL (80.0-100.0); Mean Platelet Volume 9.6; Monocytes # (A) 0.9 k/uL (0-1.0); Monocytes % (A) 5 %; Neutrophils # (A) 12.2 k/uL (1.3-7.7); Neutrophils % (A) 68 %; Platelet Count 271 k/uL (150-450); RBC 4.73 m/uL (4.30-5.90)
[2021-01-31] MEDS ORDERED: SODIUM CHLORIDE 0.9% 1,000 ML IV ONE (12:40)
--- NOTE | 2021-01-31 12:40 | XR ---
EXAMINATION TYPE: XR chest 1V portable DATE OF EXAM: 01/31/2021 COMPARISON: 07/12/2018 HISTORY: Chest pain TECHNIQUE: Single frontal view of the chest is obtained. FINDINGS: Diffuse interstitial pattern with cardiomegaly. Small bilateral effusions. No pneumothorax . Osseous structures intact. IMPRESSION: Early for CHF with pulmonary edema otherwise consider diffuse interstitial pneumonia.
[2021-01-31] MEDS ORDERED: FUROSEMIDE 10 MG/ML 4 ML VIAL IV ONE ×2 (12:42→12:48)
[2021-01-31 12:49] LABS: Albumin 4.2 g/dL (3.5-5.0); Calcium 9.3 mg/dL (8.4-10.2); Magnesium 2.4 mg/dL (1.6-2.3); Potassium 4.1 mmol/L (3.5-5.1); Total Bilirubin 0.6 mg/dL (0.2-1.3); Total Protein 6.8 g/dL (6.3-8.2)
[2021-01-31 12:50] LABS: INR 0.9 (<1.2); Partial Thromboplastin Time 22.2 sec (22.0-30.0); Prothrombin Time 9.8 sec (9.0-12.0)
[2021-01-31] MEDS: MIDAZOLAM 2 MG/2 ML VIAL IV ONE ×2 (12:50→13:35)
[2021-01-31] MEDS ORDERED: LIDOCAINE (PF) 10 MG/ML 5ML AMP SQ ONE (13:00)
[2021-01-31] MEDS ORDERED: TICAGRELOR 90 MG TAB PO ONE (13:20)
--- NOTE | 2021-01-31 13:38 | P.CRDCN ---
History of Present Illness History of present illness: HISTORY OF PRESENTING ILLNESS This is a pleasant 70-year-old male past medical history significant for hypertension, diabetes mellitus, dyslipidemia, chronic neck pain dependence, depression and chronic nicotine dependence. Denies prior history of coronary artery disease and does not follow regularly with a amusement centre manager for any reason. He presented to the hospital with symptoms of shortness of breath. He states it seemed to have started last night however, progressively worse this morning. When he woke up he was having difficulty breathing. He denies ever having had symptoms of chest discomfort. He has no dizziness, palpitations, nausea, vomiting or diaphoresis. He was hector in color and clammy. He said he traveled to [facility] this past weekend and noticed he was easily fatigued which is not normal for him. EKG reveals ST elevation anterolateral leads. This x-ray revealed early congestive heart failure. Laboratory data reviewed, WBC 18, hemoglobin 14.1, platelets 271, sodium 137, potassium 4.1, creatinine 1.0, troponin 1.89 and magnesium 2.4. Current daily cardiac medications include losartan 100 mg daily, pravastatin 40 mg daily, amlodipine 10 mg daily and hydralazine 50 mg twice a day. REVIEW OF SYSTEMS At the time of my exam: CONSTITUTIONAL: Denies fever or chills. CARDIOVASCULAR: Please of shortness of breath. Denies chest pain, orthopnea, PND or palpitations. RESPIRATORY: Denies cough. GASTROINTESTINAL: Denies abdominal pain, diarrhea, constipation, nausea or vomiting. MUSCULOSKELETAL: Denies myalgias. NEUROLOGIC: Denies numbness, tingling, headacbe or weakness. ENDOCRINE: Denies fatigue, weight change, polydipsia or polyurina. GENITOURINARY: Denies burning, hematuria or urgency with micturation. HEMATOLOGIC: Denies history of anemia or bleeding. PHYSICAL EXAMINATION Blood pressure 108/78 heart rate 114 afebrile and maintaining oxygen saturation on nasal cannula. CONSTITUTIONAL: Generalized Tachyneic and clammy. HEENT: Head is normocephalic. Pupils are equal, round. Sclerae anicteric. Mucous membranes of the mouth are moist. No JVD. No carotid bruit. CHEST EXAMINATION: Lungs are clear to auscultation. No chest wall tenderness is noted on palpation or with deep breathing. HEART EXAMINATION: Regular rate and rhythm. S1, S2 heard. No murmurs, gallops or rub. ABDOMEN: Soft, nontender. Positive bowel sounds. EXTREMITIES: 2+ peripheral pulses, no lower extremity edema and no calf tenderness. NEUROLOGIC EXAMINATION: Patient is awake, alert and oriented x3. ASSESSMENT Acute anterior lateral ST-elevated myocardial infarction Diabetes mellitus Hypertension Dyslipidemia Chronic nicotine dependence Obesity, BMI 37 PLAN Pt to go for left heart catheterization with Dr. Rosales. I have discussed the risks, benefits and alternative therapies for the above-mentioned procedure and for both sedation/analgesia as well as necessary blood product administration, if indicated, as they pertain to this patient. The patient has indicated understanding and acceptance of the risks and procedures discussed. Questions have been answered appropriately and he is agreeable to move forward with the above stated procedure. Discussed as well as his [id number], been. His sister is in route to the hospital. Give the milligrams of IV Lasix and insert Banda catheter. Have bipap on standby. Aspirin 325 mg and atorvastatin 80 mg given in the emergency department. Heparin bolus given in the mechanical laboratory technician prior to the procedure. Further recommendations to follow based upon clinical course. Thank you kindly for this consultation. Nurse Practitioner note has been reviewed, I agree with a documented findings and plan of care. Patient was seen and examined. Past Medical History Past Medical History: Unable to Obtain History of Any Multi-Drug Resistant Organisms: Unobtainable Past Surgical History: Unable to Obtain Past Psychological History: Unable to Obtain Smoking Status: Unknown if ever smoked Past Alcohol Use History: Unable to Obtain Past Drug Use History: None Reported Medications and Allergies Home Medications Medication Instructions Recorded Confirmed Type ALPRAZolam [Xanax] 0.25 mg PO BID 01/31/21 01/31/21 History ALPRAZolam [Xanax] 0.25 mg PO DAILY PRN 01/31/21 01/31/21 History DULoxetine HCL [Cymbalta] 60 mg PO DAILY 01/31/21 01/31/21 History Finasteride [Proscar] 5 mg PO DAILY 01/31/21 01/31/21 History Fluticasone Nasal [place] [Flonase 1 spray EA NOSTRIL BID PRN 01/31/21 01/31/21 History Nasal [place]] Glimepiride [Amaryl] 2 mg PO DAILY 01/31/21 01/31/21 History Lactulose [Cephulac] 20 gm PO BID 01/31/21 01/31/21 History Levothyroxine Sodium [Synthroid] 50 mcg PO DAILY 01/31/21 01/31/21 History [place] Carbonate 300 mg PO BID 01/31/21 01/31/21 History Losartan Potassium [Cozaar] 100 mg PO DAILY 01/31/21 01/31/21 History Pravastatin Sodium [Pravachol] 40 mg PO HS 01/31/21 01/31/21 History Tamsulosin HCl [Flomax] 0.4 mg PO BID 01/31/21 01/31/21 History amLODIPine [Norvasc] 10 mg PO HS 01/31/21 01/31/21 History buPROPion HCL [buPROPion HCL SR] 150 mg PO BID 01/31/21 01/31/21 History busPIRone HCL [Buspar] 30 mg PO BID 01/31/21 01/31/21 History hydrALAZINE HCL [Apresoline] 50 mg PO BID 01/31/21 01/31/21 History Allergies Allergy/AdvReac Type Severity Reaction Status Date / Time No Known Allergies Allergy Verified 01/31/21 12:37 Physical Exam Vitals: Vital Signs Temp Pulse Resp BP Pulse Ox 01/31/21 12:06 97.9 F 114 H 23 232/160 92 L Intake and Output 01/30/21 01/31/21 01/31/21 22:59 06:59 14:59 Other: Weight 124.284 kg Results 01/31/21 12:32 01/31/21 12:32 Cardiac Enzymes 01/31/21 Range/Units 12:32 AST 49 (17-59) U/L CBC 01/31/21 Range/Units 12:32 WBC 18.0 H (3.8-10.6) k/uL RBC 4.73 (4.30-5.90) m/uL Hgb 14.1 (13.0-17.5) gm/dL Hct 44.6 (39.0-53.0) % Plt Count 271 (150-450) k/uL Comprehensive Metabolic Panel 01/31/21 Range/Units 12:32 Sodium 137 (137-145) mmol/L Potassium 4.1 (3.5-5.1) mmol/L Chloride 106 (98-107) mmol/L Carbon Dioxide 18 L (22-30) mmol/L BUN 18 (9-20) mg/dL Creatinine 1.00 (0.66-1.25) mg/dL Glucose 277 H (74-99) mg/dL Calcium 9.3 (8.4-10.2) mg/dL AST 49 (17-59) U/L ALT 25 (4-49) U/L Alkaline Phosphatase 63 (38-126) U/L Total Protein 6.8 (6.3-8.2) g/dL Albumin 4.2 (3.5-5.0) g/dL Current Medications Generic Name Dose Route Start Last Admin Trade Name Freq PRN Reason Stop Dose Admin Aspirin 81 mg 02/01/21 09:00 Aspirin 81 Mg PO DAILY ADRIANNA Intake and Output 01/30/21 01/31/21 01/31/21 22:59 06:59 14:59 Other: Weight 124.284 kg Patient Weight 02/01/21 06:59 Weight 124.284 kg 01/31/21 12:32 01/31/21 12:32
[2021-01-31] MEDS ORDERED: RX INFO: IV CONTRAST WAS GIVEN 1 EACH MISC MISCELLANE PRN (14:11)
[2021-01-31] MEDS ORDERED: SODIUM CHLORIDE 0.9% 1,000 ML IV SCH (14:15)
[2021-01-31] MEDS ORDERED: MIDAZOLAM 2 MG/2 ML VIAL IV ONE (14:15)
[2021-01-31] MEDS ORDERED: PROPOFOL 10 MG/ML 20 ML VIAL IV ONE (14:24)
[2021-01-31] MEDS ORDERED: PROPOFOL 10 MG/ML 100 ML VIAL IV ONE (14:30)
[2021-01-31] MEDS ORDERED: IOPAMIDOL-370 125ML BTL INJ ONE (14:39)
[2021-01-31] MEDS ORDERED: CISATRACURIUM 2 MG/ML 5 ML VIAL IV ONE (14:57)
[2021-01-31] MEDS: FUROSEMIDE 100 MG in SODIUM CHLORIDE 0.9% 90 ML IV SCH ×2 (15:17→23:11)
[2021-01-31 15:36] LABS: ABG Base Excess -6.5 mmol/L; ABG HCO3 21 mmol/L (21-25); ABG Oxygen Saturation 93.3 % (94-97); ABG PCO2 51 mmHg (35-45); ABG PH 7.23 (7.35-7.45); ABG PO2 78 mmHg (83-108); ABG TCO2 23 mmol/L (19-24); Allen Test Performed? Yes
--- NOTE | 2021-01-31 15:52 | P.HPIM ---
History of Present Illness H&P Date: 01/31/21 (Acute coronary artery syndrome, STEMI, occlusion and LAD and right coronary artery.) Chief Complaint: Recurrent chest pain presented to the emergency room hypotensive pulmonary History: 70 years old male presented to the emergency room with the history of shortness of breath this morning and was started lost night and worsening fatigue denied any chest pressure denied nausea patient was felt heart lightheaded no abdominal pain no recent fever or chills or cough no swelling of the legs and the No history of previous heart attack and he denied any breathing problems and denied previous heart attack. Physical history significant for diabetes mellitus, hypertension, dyslipidemia, arthritis of the cervical spine, chronic nicotine dependence, and has no history of chest pain in the past presented as mentioned with the shortness of breath started last night his shortness of breath was progressively worse in the morning and denied any dizziness or palpitation or nausea or vomiting or diaphoresis in the ER he was hector in color and clammy also he was started stated he traveled to [facility] past weekend and he was noticed he is a 60 which is not normal for him. The EKG done in the ER was indicating ST segment elevation in the anterolateral leads and the x-ray indicating congestive heart failure and he had leukocytosis with normal platelets and hemoglobin electrolyte was within normal with the normal renal function however the troponin 1.89. He was on losartan 100 mg daily for hypertension and pravastatin 40 mg daily at bedtime and amlodipine 10 mg daily at bedtime and hydralazine 50 mg twice a day for the hypertension. Patient with past history of hypothyroidism and has been taken thyroid pills. He had history of chronic obstructive pulmonary disease and emphysema benign prostatic hypertrophy, hyperlipidemia, hypoglycemia with diabetes mellitus and primary hypertension. And history of major depressive disorder, nicotine dependency obesity. Caffeine: 2-5 cups per day Alcohol occasionally Smoker still smoking since 1965 1 pack per day. Patient is single he live alone.ALLERGIES amoxicillin Medication list fluticasone nasal spray, finasteride 5 mg daily or benign prostatic hypertrophy, vitamin D 3 2000 once a day #4 hydralazine 50 mg twice a day, glimepiride 2 mg once a day Amlodipine 10 mg at bedtime Losartan 100 mg every a.m., pravastatin 40 mg at bedtime, tonsilloliths and 0.4 mg twice a day. Levothyroxin 50 g in the morning. Fish oil 1000 mg capsule once a day, loratadine 5 mg 1 tablet chewable once a day for ALLERGY [id number] next alprazolam 0.25 mg 1 tablet 3 times a day from his psychiatry Dr. Jairo Martin kilos 10 mg/15 mL syrup when necessary for constipation. Vitamin to lean HFA 90 g inhaler 1 puff twice a day. Wellbutrin SR 150 mg every 12 hours twice a day. Dr. Gill the psychiatrist he gave them the bullous by rolling 30 mg twice a day as well as the melatonin 10 mg 2 tablet at bedtime, Cymbalta 60 mg delayed release once in the morning also Wellbutrin SR 150 mg twice a day. As well as the alprazolam 0.25 mg 1 tablet 3 times a day. He had echocardiogram in 02/15/2013 Review of systems: Patient presented to the ER with the shortness of breath and found that it has acute coronary artery syndrome and directly went to the cardiac cath and currently he is intubated and ventilated with the underlying congestive heart failure as well. Endocrine diabetes mellitus. With the underlying neuropathy. On physical exam post cardiac cath left heart catheterization by Dr. Meier. Laboratory indicating that his WBC WBC is 18 with the leukocytosis, hemoglobin 14.1 with hematocrit 44.6, and platelet count 271. Sodium 137 potassium 4.1 chloride 106, and carbon dioxide on the low side 18 his BUN is 18 creatinine 1 platelet count 277. Chest x-ray indicating congestive heart failure with a shortness of breath. EKG indicated acute ST segment elevation with the anteroseptal [place] and associated with the LAD ischemia Vital sign indicating that temperature 97.9 F oral heart rate 114, respiratory rate was 22/m and the blood pressure 108/78 and oxygen 92 who is 5 feet of oxygen. Subsequently patient plays on 100% FiO2 Patient sedated intubated on the vent. Head was normocephalic and atraumatic conjunctiva was pink sclera was nonicteric pupil is reactive. Neck supple with underlying mild JVD no thyromegaly no lymphadenopathy he had arthritis of the cervical spine. Lung he had inspiratory expiratory wheezes and crackles with the underlying congestive heart failure and pul however monary edema in association with the acute STEMI. He had history of chronic smoker with the COPD. Heart currently regular sinus with the underlying obstructive coronary disease LAD and RCA echocardiogram not available yet Echocardiogram in 02/15/13 indicating that he had left ventricular mildly dilated mild concentric left ventricular hypertrophy and presented with left ventricular systolic function with the ejection fraction 60% and the and the E/A reversal is noted suggestive of abnormal relaxation. He had a left Atrium mildly enlarged and he had mild mitral regurg, aortic regurg, mild tricuspid regurg, mild pulmonary regurg with normal pulmonary pressure. Abdomen positive bowel sounds protuberant and has history of fatty liver. Extremities: No edema and history of onychomycosis of the nail and pulses is intact. Neurological he patient sedated intubated on the vent. Assessment: Acute coronary artery syndrome with coronary artery obstruction #2 acute myocardial infarction [place] #3 pulmonary edema #4 hypotension #5 history of hypertension with hypertensive heart disease #6 hypothyroidism. #7 diabetes mellitus type 2 on oral hypoglycemic agent. #8 underlying psychiatric disorder treated by Dr. Gill with the underlying depression, bipolar. #9 hyperlipidemia. #10 history of chronic smoking with the COPD. Plan: #1 a cardiology consult with the status post cardiac cath and had balloon angioplasty as well as a stent. #2 his intubation and ventilatory with the consultation of pulmonary and critical Dr. Rojas in the ICU. Farther treatment depend on the patient progression. The [facility] rec has been heavy consult and held the oral medication. Past Medical History Past Medical History: Unable to Obtain History of Any Multi-Drug Resistant Organisms: Unobtainable Past Surgical History: Unable to Obtain Past Psychological History: Unable to Obtain Smoking Status: Unknown if ever smoked Past Alcohol Use History: Unable to Obtain Past Drug Use History: None Reported Medications and Allergies Home Medications Medication Instructions Recorded Confirmed Type ALPRAZolam [Xanax] 0.25 mg PO BID 01/31/21 01/31/21 History ALPRAZolam [Xanax] 0.25 mg PO DAILY PRN 01/31/21 01/31/21 History DULoxetine HCL [Cymbalta] 60 mg PO DAILY 01/31/21 01/31/21 History Finasteride [Proscar] 5 mg PO DAILY 01/31/21 01/31/21 History Fluticasone Nasal [place] [Flonase 1 spray EA NOSTRIL BID PRN 01/31/21 01/31/21 History Nasal [place]] Glimepiride [Amaryl] 2 mg PO DAILY 01/31/21 01/31/21 History Lactulose [Cephulac] 20 gm PO BID 01/31/21 01/31/21 History Levothyroxine Sodium [Synthroid] 50 mcg PO DAILY 01/31/21 01/31/21 History [place] Carbonate 300 mg PO BID 01/31/21 01/31/21 History Losartan Potassium [Cozaar] 100 mg PO DAILY 01/31/21 01/31/21 History Pravastatin Sodium [Pravachol] 40 mg PO HS 01/31/21 01/31/21 History Tamsulosin HCl [Flomax] 0.4 mg PO BID 01/31/21 01/31/21 History amLODIPine [Norvasc] 10 mg PO HS 01/31/21 01/31/21 History buPROPion HCL [buPROPion HCL SR] 150 mg PO BID 01/31/21 01/31/21 History busPIRone HCL [Buspar] 30 mg PO BID 01/31/21 01/31/21 History hydrALAZINE HCL [Apresoline] 50 mg PO BID 01/31/21 01/31/21 History Allergies Allergy/AdvReac Type Severity Reaction Status Date / Time No Known Allergies Allergy Verified 01/31/21 12:37 Physical Exam Vitals: Vital Signs Temp Pulse Resp BP Pulse Ox 01/31/21 12:59 22 01/31/21 12:33 97.9 F 114 H 22 108/78 92 L 01/31/21 12:06 97.9 F 114 H 23 232/160 92 L Intake and Output 01/31/21 01/31/21 01/31/21 06:59 14:59 22:59 Intake Total 600 Output Total 300 Balance 300 Intake: IV 600 Output: Urine 300 Other: Weight 124.284 kg Results CBC & Chem 7: 01/31/21 12:32 01/31/21 12:32 Labs: Abnormal Lab Results - Last 24 Hours (Table) 01/31/21 01/31/21 01/31/21 Range/Units 12:32 12:32 12:32 WBC 18.0 H (3.8-10.6) k/uL Neutrophils # 12.2 H (1.3-7.7) k/uL Carbon Dioxide 18 L (22-30) mmol/L Glucose 277 H (74-99) mg/dL Magnesium 2.4 H (1.6-2.3) mg/dL Troponin I 1.890 H* (0.000-0.034) ng/mL
--- NOTE | 2021-01-31 15:55 | P.CNPUL ---
History of Present Illness Consult date: 01/31/21 Requesting physician: Adam Forrester Reason for consult: other (Cardiogenic shock and acute hypoxic respiratory failure) Chief complaint: Shortness of breath History of present illness: This is a 70-year-old white male, with history of hypertension, diabetes, dyslipidemia, chronic neck pain, depression, chronic nicotine dependence, no previous history of documented coronary artery disease. Patient came into the hospital with symptoms of acute shortness of breath. Patient woke up this morning and he was complaining of shortness of breath, he had no dizziness no palpitation no nausea no vomiting or diaphoresis. However the patient was noted to be hector in color and clammy. EKG upon his initial presentation showed ST elevation in the anterolateral leads. Chest x-ray showed evidence of congestive heart failure. Troponin was 1.89. Patient was seen by cardiology and he was noted to have acute anterior lateral stress ST elevated myocardial infarction, hence the patient was taken straight to cardiac catheterization. While in the cardiac catheterization lab, patient underwent stenting and apparently during the cardiac catheterization patient went into full cardiogenic shock, patient was intubated and placed on mechanical ventilation, and an impella device was placed. The device was placed in the right groin through the femoral artery. Patient was transferred to the ICU on mechanical ventilation, and I was asked to see him on consultation. Patient was placed on tidal volume of 450, FiO2 of 100%, EPAP of 10, and assist control rate of 30. Chest x-ray showed evidence of pulmonary edema ABG showed a pO2 of 78 pCO2 of 51 pH of 7.23. Will increase to follow volume to 500 and will likely increase PEEP to 12. Review of Systems ROS unobtainable: due to endotracheal tube Past Medical History Past Medical History: Unable to Obtain History of Any Multi-Drug Resistant Organisms: Unobtainable Past Surgical History: Unable to Obtain Past Psychological History: Unable to Obtain Smoking Status: Unknown if ever smoked Past Alcohol Use History: Unable to Obtain Past Drug Use History: None Reported Medications and Allergies Home Medications Medication Instructions Recorded Confirmed Type ALPRAZolam [Xanax] 0.25 mg PO BID 01/31/21 01/31/21 History ALPRAZolam [Xanax] 0.25 mg PO DAILY PRN 01/31/21 01/31/21 History DULoxetine HCL [Cymbalta] 60 mg PO DAILY 01/31/21 01/31/21 History Finasteride [Proscar] 5 mg PO DAILY 01/31/21 01/31/21 History Fluticasone Nasal [place] [Flonase 1 spray EA NOSTRIL BID PRN 01/31/21 01/31/21 History Nasal [place]] Glimepiride [Amaryl] 2 mg PO DAILY 01/31/21 01/31/21 History Lactulose [Cephulac] 20 gm PO BID 01/31/21 01/31/21 History Levothyroxine Sodium [Synthroid] 50 mcg PO DAILY 01/31/21 01/31/21 History [place] Carbonate 300 mg PO BID 01/31/21 01/31/21 History Losartan Potassium [Cozaar] 100 mg PO DAILY 01/31/21 01/31/21 History Pravastatin Sodium [Pravachol] 40 mg PO HS 01/31/21 01/31/21 History Tamsulosin HCl [Flomax] 0.4 mg PO BID 01/31/21 01/31/21 History amLODIPine [Norvasc] 10 mg PO HS 01/31/21 01/31/21 History buPROPion HCL [buPROPion HCL SR] 150 mg PO BID 01/31/21 01/31/21 History busPIRone HCL [Buspar] 30 mg PO BID 01/31/21 01/31/21 History hydrALAZINE HCL [Apresoline] 50 mg PO BID 01/31/21 01/31/21 History Allergies Allergy/AdvReac Type Severity Reaction Status Date / Time No Known Allergies Allergy Verified 01/31/21 12:37 Physical Exam Vitals: Vital Signs Temp Pulse Resp BP Pulse Ox 01/31/21 15:00 100 24 115/94 91 L 01/31/21 14:51 96 26 H 94 L 01/31/21 12:59 22 01/31/21 12:33 97.9 F 114 H 22 108/78 92 L 01/31/21 12:06 97.9 F 114 H 23 232/160 92 L Intake and Output 01/31/21 01/31/21 01/31/21 06:59 14:59 22:59 Intake Total 600 Output Total 300 Balance 300 Intake: IV 600 Output: Urine 300 Other: Weight 124.284 kg ABP, PAP, CO, CI - Last 8 Hours Arterial Blood Pressure 101/72 Physical Exam: Revealed a 70-year-old white male, morbidly obese, on mechanical ventilation, sedated, and a dose of Nimbex was given earlier because of extreme agitation and was not being properly ventilated upon arrival to the ICU. He is on propofol at 50 mcg/kg/m, and again he received 1 dose of Nimbex as soon as he arrived to the ICU with extreme agitation and restlessness on mechanical ventilation. Head: Atraumatic, normocephalic. Endotracheal tube is noted, no orogastric tube has been placed yet HEENT: Short obese neck [Neck is supple.] [No neck masses.] [No thyromegaly.] [No JVD.] Chest: [Symmetrical chest expansion, crackles and rhonchi noted bilaterally. Cardiac Exam: Distant S1 and S2, no S3 gallop was appreciated. Abdomen: [Morbidly obese, Soft, nontender, no megaly, no rebound, no guarding, normal bowel sounds.] Extremities: [No clubbing, 1+ bipedal edema, no cyanosis.] Diminished distal pulses bilaterally. Neurological Exam: Could not assess, patient is sedated and paralyzed now. Psychiatric: Could not assess. Results - Laboratory Findings CBC and BMP: 01/31/21 12:32 01/31/21 12:32 ABG ABG pH 7.23 (7.35-7.45) L 01/31/21 15:34 ABG pCO2 51 mmHg (35-45) H 01/31/21 15:34 ABG pO2 78 mmHg (83-108) L 01/31/21 15:34 ABG O2 Saturation 93.3 % (94-97) L 01/31/21 15:34 PT/INR, D-dimer PT 9.8 sec (9.0-12.0) 01/31/21 12:32 INR 0.9 (<1.2) 01/31/21 12:32 Abnormal lab findings: Abnormal Labs 01/31/21 01/31/21 01/31/21 12:32 12:32 12:32 WBC 18.0 H Neutrophils # 12.2 H ABG pH ABG pCO2 ABG pO2 ABG O2 Saturation Carbon Dioxide 18 L Glucose 277 H Magnesium 2.4 H Troponin I 1.890 H* 01/31/21 15:34 WBC Neutrophils # ABG pH 7.23 L ABG pCO2 51 H ABG pO2 78 L ABG O2 Saturation 93.3 L Carbon Dioxide Glucose Magnesium Troponin I - Diagnostic Findings Chest x-ray: image reviewed (As noted in HPI.) Assessment and Plan Assessment: Impression: Acute ST elevation myocardial infarction Cardiogenic shock while in the cardiac catheterization lab requiring intubation and mechanical ventilation and left ventricular assist device placement. Acute hypoxic respiratory failure secondary to pulmonary edema secondary to card iogenic shock secondary to acute ST elevation NV. Morbid obesity, BMI of 37.2 Benign essential hypertension Dyslipidemia Tobacco dependence syndrome. History of depression Recommendation: Continue ventilatory support. We'll adjust the ventilator settings based on the ABG as noted earlier. Continue left ventricular assist device and that being addressed by cardiology on the case. Central venous access was established, may require pressors or inotropes. Adjust deep accordingly Patient to be placed on Lasix drip. Patient will be placed on bronchodilators in the form of DuoNeb 4 times a day and when necessary. Continue heparin as per cardiology. We'll continue to follow. Prognosis is definitely guarded at this point. Time with Patient: Greater than 30
[2021-01-31 15:57] LABS: Basophils # (A) 0.1 k/uL (0-0.2); Basophils % (A) 0 %; Eosinophils % (A) 0 %; HCT 42.5 % (39.0-53.0); HGB 13.6 gm/dL (13.0-17.5); Lymphocytes # (A) 0.7 k/uL (1.0-4.8); Lymphocytes % (A) 4 %; MCH 30.3 pg (25.0-35.0); MCV 94.6 fL (80.0-100.0); Mean Platelet Volume 9.5; Monocytes # (A) 0.9 k/uL (0-1.0); Monocytes % (A) 5 %; Neutrophils # (A) 16.7 k/uL (1.3-7.7); Neutrophils % (A) 90 %; Platelet Count 246 k/uL (150-450); RDW 13.8 % (11.5-15.5); WBC 18.6 k/uL (3.8-10.6)
--- NOTE | 2021-01-31 15:59 | XR ---
EXAMINATION TYPE: XR chest 1V portable DATE OF EXAM: 01/31/2021 HISTORY: Shortness of breath. COMPARISON: 01/31/2021 TECHNIQUE: Single view of the chest is submitted. FINDINGS: Endotracheal tube is 4.8 cm from the dilia. NG tube is seen coursing into the stomach. Perihilar inf iltrates persist. Suspect underlying pneumonia. The heart is stable. Hilar and mediastinal structures are within normal limits. Degenerative changes are seen of the dorsal spine. IMPRESSION: 1. Endotracheal tube is 4.8 cm from the dilia. NG tube is seen coursing into the stomach. Perihilar infiltrates persist. Suspect underlying pneumonia.
[2021-01-31 16:07] LABS: D-Dimer 1.54 mg/L FEU (<0.60)
[2021-01-31] MEDS ORDERED: INSULIN ASPART (NovoLOG) 100 UNIT/ML VIAL SQ SCH (17:30)
--- NOTE | 2021-01-31 18:00 | ECHOF ---
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 Pt has Impala inplace. This was a technically difficult study with suboptimal views. The left ventricular size is normal. There is moderate concentric left ventricular hypertrophy. O verall left ventricular systolic function is severely impaired with, an EF between 25 - 30 %. Apica l anterior LV wall motion is hypokinetic. Apical lateral LV wall motion is hypokinetic. Apical inferior LV wall motion is hypokinetic. Apical septum LV wall motion is hypokinetic. The right ventricle is normal in size. The left atrial size is normal. The right atrium is normal in size. There is mild aortic valve sclerosis. Mild mitral annular calcification present. The tricuspid valve was not well visualized. The pulmonic valve was not well visualized. The aortic root size is normal. IVC Not well visulized. There is no pericardial effusion. 5 ml of Lumason was utilized for enhancement of images. CONCLUSIONS -------- 1. Pt has Impala inplace. 2. This was a technically difficult study with suboptimal views. 3. The left ventricular size is normal. 4. There is moderate concentric left ventricular hypertrophy. 5. Overall left ventricular systolic function is severely impaired with, an EF between 25 - 30 %. 6. Apical anterior LV wall motion is hypokinetic. 7. Apical lateral LV wall motion is hypokinetic. 8. Apical inferior LV wall motion is hypokinetic. 9. Apical septum LV wall motion is hypokinetic. 10. 5 ml of Lumason was utilized for enhancement of images. 11. There is mild aortic valve sclerosis. 12. Mild mitral annular calcification present. 13. There is no pericardial effusion. WIRE STRETCHER: Ernestine Ferrer RDCS
[2021-01-31] MEDS: HEPARIN SODIUM,PORCINE 12,500 UNIT in DEXTROSE 5% IN WATER 500 ML IV SCH ×2 (18:46)
[2021-01-31] MEDS: HEPARIN SOD,PORK IN 0.45% NACL 25,000 UNIT in 0.45% NACL 1 250ML.BAG IV SCH (18:47)
[2021-01-31 19:19] LABS: Albumin 3.7 g/dL (3.5-5.0); Calcium 8.6 mg/dL (8.4-10.2); Magnesium 2.1 mg/dL (1.6-2.3); Total Bilirubin 0.9 mg/dL (0.2-1.3); Total Protein 6.5 g/dL (6.3-8.2)
[2021-01-31 19:30] LABS: Potassium 4.7 mmol/L (3.5-5.1)
[2021-01-31 19:31] LABS: Glucose,Whole Blood 149 mg/dL (75-99)
--- NOTE | 2021-01-31 20:06 | OP ---
OPERATIVE REPORT OPERATIVE REPORT: Placement of left femoral triple-lumen catheter. PREOPERATIVE DIAGNOSIS: Acute cardiogenic shock. POSTOPERATIVE DIAGNOSIS: Acute cardiogenic shock. ANESTHESIA USED: 2 mL of 1% lidocaine. PROCEDURE DESCRIPTION: The patient was placed in supine position. The left groin was prepared in a sterile fashion. Drapes were applied. The left groin was locally anesthetized with lidocaine. Then the left femoral vein was easily cannulated. A guidewire was placed. The area was dilated around the guidewire. Then the triple-lumen catheter was inserted over the guidewire, and the guidewire was removed. Good blood flow was noted in the 3 different ports of the triple-lumen catheter. Line was secured using 3.0 silk sutures. No immediate complications. MMODL / IJN: [id number] /
[2021-01-31 20:30] LABS: Glucose,Whole Blood 157 mg/dL (75-99)
[2021-01-31] MEDS: CHLORHEXIDINE GLUCONATE 15 ML CUP MUCOUS MEM SCH (20:31)
[2021-01-31] MEDS: INSULIN ASPART (NovoLOG) 100 UNIT/ML VIAL SQ SCH (20:42)
[2021-01-31] MEDS: SODIUM CHLORIDE 0.9% 1,000 ML IV SCH (21:20)
[2021-02-01 01:46] LABS: Partial Thromboplastin Time 27.3 sec (22.0-30.0); Prothrombin Time 10.3 sec (9.0-12.0)
[2021-02-01] MEDS: HEPARIN SODIUM 1,000 UN/ML (10ML VL) IV PRN ×2 (02:01→09:38)
[2021-02-01 04:08] LABS: Basophils % (A) 0 %; Eosinophils % (A) 0 %; HCT 41.4 % (39.0-53.0); HGB 13.2 gm/dL (13.0-17.5); Lymphocytes # (A) 1.3 k/uL (1.0-4.8); Lymphocytes % (A) 9 %; MCH 30.3 pg (25.0-35.0); MCHC 31.8 g/dL (31.0-37.0); MCV 95.4 fL (80.0-100.0); Mean Platelet Volume 11.9; Monocytes % (A) 7 %; Neutrophils % (A) 82 %; Platelet Count 232 k/uL (150-450); RBC 4.34 m/uL (4.30-5.90); RDW 14.2 % (11.5-15.5); WBC 14.6 k/uL (3.8-10.6)
[2021-02-01 04:45] LABS: Calcium 8.8 mg/dL (8.4-10.2); Magnesium 2.2 mg/dL (1.6-2.3); Potassium 4.8 mmol/L (3.5-5.1)
[2021-02-01 05:13] LABS: ABG Base Excess -3.6 mmol/L; ABG HCO3 21 mmol/L (21-25); ABG Oxygen Saturation 98.4 % (94-97); ABG PCO2 31 mmHg (35-45); ABG PH 7.43 (7.35-7.45); ABG PO2 117 mmHg (83-108); ABG TCO2 22 mmol/L (19-24); Allen Test Performed? Yes
--- NOTE | 2021-02-01 05:15 | CC ---
CARDIAC CATHETERIZATION REPORT DATE OF SERVICE: January 31, 2021. PERFORMING PHYSICIAN: Siva Rosales MD. PROCEDURE PERFORMED: 1. Selective right and left coronary angiogram. 2. Left heart catheterization. 3. Successful stenting of the proximal left anterior descending artery using 3.5 x 15 mm Xience drug-eluting stent with excellent angiographic results. 4. Selective right common femoral artery angiogram. 5. Successful placement of Impella CP from right groin. APPROACH: Right common femoral artery. COMPLICATION: None. LEVEL OF SEDATION: Moderate with sedation length of about 120 minutes. INDICATION: Acute anterolateral ST-segment elevation myocardial infarction. PROCEDURE DESCRIPTION: After obtaining informed consent, the patient was brought to the cardiac labor relations consultant. Please note that the patient was seen and evaluated by Dr. Jones in the emergency department. The patient was brought to the cardiac labor relations consultant. The right common femoral artery was cannulated using micropuncture technique and a micropuncture wire passed easily. Then I placed a 6-Citizen [place] sheath at the right common femoral artery. Please note that the right common femoral artery was cannulated using ultrasound guidance. Selective right and left coronary angiogram performed using JR4 catheter and JL4 catheters. After that I did intervene on the left anterior descending artery. Please see separate paragraph for that. After that, I did left heart catheterization using 6-Citizen [place] pigtail catheter. After that I placed an Impella in the left ventricle. SELECTIVE CORONARY ANGIOGRAM: 1. The right coronary artery is a large caliber vessel and is a dominant vessel. The RCA subtotally occluded and probably chronically occluded in the midportion. 2. The left main is a large caliber vessel and is a long left main. It bifurcates into LCX and LAD. 3. The LCX is a large caliber vessel and is a nondominant vessel. The LCX is subtotally occluded in the midportion by the bifurcation of a large obtuse marginal branch. 4. The LAD: The proximal LAD appeared to have a critical lesion in the range of 99% and seems to be thrombotic lesion. This is by the bifurcation of the first diagonal branch which is a moderate caliber vessel. The mid LAD has another hazy lesion seems to be in the range of 30% to 40%. This is by the bifurcation of the second diagonal branch. The LAD in the mid to distal portion has another lesion appeared to be in the range of 50%. PCI OF LAD: Anticoagulation was achieved with heparin with continuous ACT monitoring throughout the procedure. The patient was already given high given heparin in the ER and we continued that with adding additional 6000 units of heparin. The left main was engaged using JL4 guide. I did wire the LAD using a Whisper wire. Subsequently, I did predilatation using 3.0 x 12 mm balloon before I deployed 3.5 x 15 mm Xience drug-eluting stent where the stent was positioned under fluoroscopy guidance and deployed under about 14 atmospheres for 15 seconds. The following angiogram showed good angiographic results. Please note that the patient at that stage was in respiratory distress and we had to call anesthesia to intubate the patient. HEMODYNAMICS: LVEDP was more than 15 mm Hg, but without significant gradient across the aortic valve. PLACEMENT OF THE IMPELLA IN THE LEFT VENTRICLE: I did pre-close the groin using 2 Perclose. The initial Perclose was placed at 12 o'clock and the 2nd Perclose was placed at 2 o'clock. Subsequently, I did place 7-Citizen [place] sheath in the right groin and the sheath was 11 cm in length. After that, I did advance a Shafer Advantage wire to the descending thoracic aorta and that wire was exchanged using JR4 catheter into a stiff 035 wire. After that, I did dilate the groin using an 8 and then 10-Citizen [place] dilator. Before I placed a 14-[place]izen [place] sheath at the right common femoral artery. Subsequently, I did cross the left ventricle using a 6-[place] pigtail catheter with the backup support of 035 J-wire. After that I did place a 018 Impella wire in the left ventricle and then I pulled the pigtail catheter out. Subsequently the Impella was advanced over the 0.018 wire after it was prepped all the way to the LV and then the wire was pulled out. Subsequently the Impella was turned on. At that point, the procedure was completed without any complication. I did selective right common femoral artery angiogram and there was flow in the right common femoral artery. CONCLUSION: 1. Acute large anterolateral ST-segment elevation myocardial infarction. 2. Critical triple-vessel coronary artery disease. 3. Cardiogenic shock. 4. Successful stenting of the culprit lesion which is critical thrombotic lesion involving the proximal left anterior descending artery. 5. Successful placement of Impella CP in the left ventricle. POST PROCEDURE MANAGEMENT: 1. Dual anti-platelet therapy. 2. Assess for perfusion in the right foot. 3. Anti-ischemic medication. 4. High-intensity statin. 5. Pull the Impella in the next 24-48 hours. MMODL / IJN: [id number] /
[2021-02-01 05:41] LABS: Calcium 8.7 mg/dL (8.4-10.2); Magnesium 2.1 mg/dL (1.6-2.3); Total Bilirubin 1.4 mg/dL (0.2-1.3); Total Protein 6.9 g/dL (6.3-8.2)
[2021-02-01] MEDS ORDERED: VANCOMYCIN IV PER PHARMACY 1 EACH MISC MISCELLANE PRN (06:11)
[2021-02-01 06:53] LABS: Glucose,Whole Blood 194 mg/dL (75-99)
[2021-02-01] MEDS: INSULIN ASPART (NovoLOG) 100 UNIT/ML VIAL SQ SCH ×5 (06:55→23:17)
[2021-02-01] MEDS: CEFEPIME 2 GM in SODIUM CHLORIDE 0.9% 100 ML IVPB SCH ×2 (06:55→19:07)
--- NOTE | 2021-02-01 07:04 | XR ---
EXAMINATION TYPE: XR chest 1V portable DATE OF EXAM: 02/01/2021 COMPARISON: 01/31/2021 HISTORY: SOB, Follow Up FINDINGS: Indwelling tubes and catheters are unchanged. Improving perihilar and basilar infiltrates. Stable appearance of the cardio-mediastinal structures a t this time. Pleural effusion unchanged. IMPRESSION: 1. Improving perihilar and basilar infiltrates. Clinical correlation and follow up until resolution is recommended.
[2021-02-01] MEDS: VANCOMYCIN 1,750 MG in SODIUM CHLORIDE 0.9% 500 ML 500 ML IVPB SCH ×2 (07:05→23:17)
[2021-02-01] MEDS: LEVOTHYROXINE IVP 100 MCG/5 ML VIAL IV SCH (08:31)
[2021-02-01] MEDS: TICAGRELOR 90 MG TAB PO SCH ×2 (08:31→20:58)
[2021-02-01] MEDS: ASPIRIN 81 MG PO SCH (08:31)
[2021-02-01] MEDS: CHLORHEXIDINE GLUCONATE 15 ML CUP MUCOUS MEM SCH ×2 (08:31→20:58)
[2021-02-01] MEDS ORDERED: METOPROLOL TARTRATE 25 MG TAB PO SCH (09:00)
[2021-02-01] MEDS: METOPROLOL TARTRATE 12.5 MG TAB PO SCH ×2 (09:56→20:58)
[2021-02-01] MEDS: ATORVASTATIN 80 MG TAB PO SCH (09:57)
[2021-02-01] MEDS: FUROSEMIDE 100 MG in SODIUM CHLORIDE 0.9% 90 ML IV SCH ×2 (10:53→16:35)
[2021-02-01 11:53] LABS: Glucose,Whole Blood 181 mg/dL (75-99)
--- NOTE | 2021-02-01 12:14 | P.PN ---
Subjective HISTORY OF PRESENTING ILLNESS This is a pleasant 70-year-old male past medical history significant for hypertension, diabetes mellitus, dyslipidemia, chronic neck pain dependence, depression and chronic nicotine dependence. 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 He presented to the hospital with symptoms of shortness of breath. He states it seemed to have started last night however, progressively worse this morning. When he woke up he was having difficulty breathing. He denies ever having had symptoms of chest discomfort. He has no dizziness, palpitations, nausea, vomiting or diaphoresis. He was hector in color and clammy. He said he traveled to [facility] this past weekend and noticed he was easily fatigued which is not normal for him. EKG reveals ST elevation anterolateral leads. This x-ray revealed early congestive heart failure. Laboratory data reviewed, WBC 18, hemoglobin 14.1, platelets 271, sodium 137, potassium 4.1, creatinine 1.0, t roponin 1.89 and magnesium 2.4. Current daily cardiac medications include losartan 100 mg daily, pravastatin 40 mg daily, amlodipine 10 mg daily and hydralazine 50 mg twice a day. 02/01/2021 Pt is s/p left heart catheterization with PCI to the LAD and impella placement. Cath revealed RCA sub-totally occluded likely chronic in the mid-portion, circumflex subtotally occluded in the midportion, LAD with a critical lesion in the proximal portion 99% which seems to be thrombotic, mid LAD has another hazy lesion in the range of 30-40%. He underwent successful PCI of the LAD then developed placement. LVEDP was greater than 50 mmHg. Blood pressure is 96/73 heart rate 62 with a temperature of 100.8F. Laboratory data reviewed, WBC 14.6, hemoglobin 13.2, platelets 232, fibrinogen 556, sodium 134, potassium 4, creatinine 1.55, magnesium 2.1 and repeat troponin 149. Echocardiogram obtained revealed severely impaired LV systolic function with ejection fraction 25-30%, apical anterior, apical lateral, apical inferior, apical septal LV wall motion hypokinesia. PHYSICAL EXAMINATION CONSTITUTIONAL: Appears comfortable, color has improved. HEENT: Head is normocephalic. Pupils are equal, round. Sclerae anicteric. Mucous membranes of the mouth are moist. No JVD. No carotid bruit. CHEST EXAMINATION: Bibasilar rales, no rhonchi or wheezes. No chest wall tenderness is noted on palpation or with deep breathing. HEART EXAMINATION: Regular rate and rhythm. S1, S2 heard. No murmurs, gallops or rub. EXTREMITIES: 1+ peripheral pulses, no lower extremity edema and no calf tenderness. ASSESSMENT Acute anterior lateral ST-elevated myocardial infarction Diabetes mellitus Hypertension Dyslipidemia Chronic nicotine dependence Obesity, BMI [address] Rosales will remove the impella today at noon. Continue with dual anti-platelet therapy and high intensity statins. Initiate lopressor 12.5 mg BID. Continue lasix infusion. Further recommendations to follow based on clinical course. Nurse Practitioner note has been reviewed, I agree with a documented findings and plan of care. Patient was seen and examined. Objective - Vital Signs Vital signs: Vital Signs Temp 100.3 F H 02/01/21 08:00 Pulse 68 02/01/21 11:00 Resp 30 H 02/01/21 11:00 BP 110/83 02/01/21 11:00 Pulse Ox 96 02/01/21 11:00 Intake & Output 01/31/21 02/01/21 02/01/21 18:59 06:59 18:59 Intake Total 807.285 623.163 943.456 Output Total 700 1254 1450 Balance 107.285 -630.837 -506.544 Weight 124.284 kg 101.6 kg 101.6 kg Intake: IV 770 240 70 0.9 20 Sodium Chloride 0.9% 1, 200 70 000 ml @ 20 mls/hr IV . Q24H [facility] Rx#:[id number] Sodium Chloride 0.9% 1, 170 20 000 ml @ 50 mls/hr IV . Q20H [facility] Rx#:[id number] Intake, IV Titration 37.285 383.163 873.456 Amount Cefepime 2 gm In Sodium 50.0 Chloride 0.9% 100 ml @ 25 mls/hr IVPB Q12H [facility] Rx# :[id number] Furosemide 100 mg In 79 100 Sodium Chloride 0.9% 90 ml @ 10 MG/HR 10 mls/hr IV .Q10H [facility] Rx#: [id number] Heparin Sod,Pork in 0.45% 69.064 101.73 NaCl 25,000 unit In 0.45 % NaCl 1 250ml.bag @ 7.7 UNIT/KG/HR 9.57 mls/hr IV .Q24H [facility] Rx#:[id number] Vancomycin 1,750 mg In 501 Sodium Chloride 0.9% 500 ml 500 ml @ 167 mls/hr IVPB Q16H [facility] Rx#: [id number] propofoL 1,000 mg In 37.285 235.099 120.726 Empty Bag 1 bag @ Titrate IV .Q0M [facility] Rx#: [id number] Output: Urine 700 1254 1450 Other: Voiding Method Indwelling Catheter Indwelling Catheter Indwelling Catheter ABP, PAP, CO, CI - Last Documented Arterial Blood Pressure 97/74 - Labs CBC & Chem 7: 02/01/21 01:10 02/01/21 04:30 Labs: Abnormal Lab Results - Last 24 Hours (Table) 01/31/21 01/31/21 01/31/21 Range/Units 12:32 12:32 12:32 WBC 18.0 H (3.8-10.6) k/uL Neutrophils # 12.2 H (1.3-7.7) k/uL Lymphocytes # (1.0-4.8) k/uL APTT (22.0-30.0) sec Fibrinogen (200-500) mg/dL D-Dimer (<0.60) mg/L FEU ABG pH (7.35-7.45) ABG pCO2 (35-45) mmHg ABG pO2 (83-108) mmHg ABG O2 Saturation (94-97) % Sodium (137-145) mmol/L Carbon Dioxide 18 L (22-30) mmol/L BUN (9-20) mg/dL Creatinine (0.66-1.25) mg/dL Glucose 277 H (74-99) mg/dL POC Glucose (mg/dL) (75-99) mg/dL Magnesium 2.4 H (1.6-2.3) mg/dL Total Bilirubin (0.2-1.3) mg/dL AST (17-59) U/L ALT (4-49) U/L Lactate Dehydrogenase (313-618) U/L Troponin I 1.890 H* (0.000-0.034) ng/mL Triglycerides (<150) mg/dL 01/31/21 01/31/21 01/31/21 Range/Units 15:00 15:00 15:00 WBC 18.6 H (3.8-10.6) k/uL Neutrophils # 16.7 H (1.3-7.7) k/uL Lymphocytes # 0.7 L (1.0-4.8) k/uL APTT (22.0-30.0) sec Fibrinogen 533 H (200-500) mg/dL D-Dimer 1.54 H (<0.60) mg/L FEU ABG pH (7.35-7.45) ABG pCO2 (35-45) mmHg ABG pO2 (83-108) mmHg ABG O2 Saturation (94-97) % Sodium (137-145) mmol/L Carbon Dioxide (22-30) mmol/L BUN (9-20) mg/dL Creatinine (0.66-1.25) mg/dL Glucose (74-99) mg/dL POC Glucose (mg/dL) (75-99) mg/dL Magnesium (1.6-2.3) mg/dL Total Bilirubin (0.2-1.3) mg/dL AST (17-59) U/L ALT (4-49) U/L Lactate Dehydrogenase 2041 H (313-618) U/L Troponin I (0.000-0.034) ng/mL Triglycerides (<150) mg/dL 01/31/21 01/31/21 01/31/21 Range/Units 15:00 15:00 15:34 WBC (3.8-10.6) k/uL Neutrophils # (1.3-7.7) k/uL Lymphocytes # (1.0-4.8) k/uL APTT 46.9 H (22.0-30.0) sec Fibrinogen (200-500) mg/dL D-Dimer (<0.60) mg/L FEU ABG pH 7.23 L (7.35-7.45) ABG pCO2 51 H (35-45) mmHg ABG pO2 78 L (83-108) mmHg ABG O2 Saturation 93.3 L (94-97) % Sodium 134 L (137-145) mmol/L Carbon Dioxide 20 L (22-30) mmol/L BUN 21 H (9-20) mg/dL Creatinine (0.66-1.25) mg/dL Glucose 234 H (74-99) mg/dL POC Glucose (mg/dL) (75-99) mg/dL Magnesium (1.6-2.3) mg/dL Total Bilirubin (0.2-1.3) mg/dL AST 347 H (17-59) U/L ALT (4-49) U/L Lactate Dehydrogenase (313-618) U/L Troponin I (0.000-0.034) ng/mL Triglycerides (<150) mg/dL 01/31/21 01/31/21 02/01/21 Range/Units 19:11 20:28 01:06 WBC (3.8-10.6) k/uL Neutrophils # (1.3-7.7) k/uL Lymphocytes # (1.0-4.8) k/uL APTT (22.0-30.0) sec Fibrinogen (200-500) mg/dL D-Dimer (<0.60) mg/L FEU ABG pH (7.35-7.45) ABG pCO2 (35-45) mmHg ABG pO2 (83-108) mmHg ABG O2 Saturation (94-97) % Sodium 135 L (137-145) mmol/L Carbon Dioxide 18 L (22-30) mmol/L BUN 27 H (9-20) mg/dL Creatinine 1.44 H (0.66-1.25) mg/dL Glucose 142 H (74-99) mg/dL POC Glucose (mg/dL) 149 H 157 H (75-99) mg/dL Magnesium (1.6-2.3) mg/dL Total Bilirubin (0.2-1.3) mg/dL AST (17-59) U/L ALT (4-49) U/L Lactate Dehydrogenase (313-618) U/L Troponin I (0.000-0.034) ng/mL Triglycerides 349 H (<150) mg/dL 02/01/21 02/01/21 02/01/21 Range/Units 01:06 01:06 01:10 WBC 14.6 H (3.8-10.6) k/uL Neutrophils # 12.0 H (1.3-7.7) k/uL Lymphocytes # (1.0-4.8) k/uL APTT (22.0-30.0) sec Fibrinogen 556 H (200-500) mg/dL D-Dimer (<0.60) mg/L FEU ABG pH (7.35-7.45) ABG pCO2 (35-45) mmHg ABG pO2 (83-108) mmHg ABG O2 Saturation (94-97) % Sodium (137-145) mmol/L Carbon Dioxide (22-30) mmol/L BUN (9-20) mg/dL Creatinine (0.66-1.25) mg/dL Glucose (74-99) mg/dL POC Glucose (mg/dL) (75-99) mg/dL Magnesium (1.6-2.3) mg/dL Total Bilirubin (0.2-1.3) mg/dL AST (17-59) U/L ALT (4-49) U/L Lactate Dehydrogenase 4618 H (313-618) U/L Troponin I (0.000-0.034) ng/mL Triglycerides (<150) mg/dL 02/01/21 02/01/21 02/01/21 Range/Units 04:30 04:30 05:06 WBC (3.8-10.6) k/uL Neutrophils # (1.3-7.7) k/uL Lymphocytes # (1.0-4.8) k/uL APTT (22.0-30.0) sec Fibrinogen (200-500) mg/dL D-Dimer (<0.60) mg/L FEU ABG pH (7.35-7.45) ABG pCO2 31 L (35-45) mmHg ABG pO2 117 H (83-108) mmHg ABG O2 Saturation 98.4 H (94-97) % Sodium 134 L (137-145) mmol/L Carbon Dioxide 20 L (22-30) mmol/L BUN 30 H (9-20) mg/dL Creatinine 1.55 H (0.66-1.25) mg/dL Glucose 162 H (74-99) mg/dL POC Glucose (mg/dL) (75-99) mg/dL Magnesium (1.6-2.3) mg/dL Total Bilirubin 1.4 H (0.2-1.3) mg/dL AST 761 H (17-59) U/L ALT 101 H (4-49) U/L Lactate Dehydrogenase (313-618) U/L Troponin I 149.000 H* (0.000-0.034) ng/mL Triglycerides (<150) mg/dL 02/01/21 02/01/21 Range/Units 06:51 08:32 WBC (3.8-10.6) k/uL Neutrophils # (1.3-7.7) k/uL Lymphocytes # (1.0-4.8) k/uL APTT 38.3 H (22.0-30.0) sec Fibrinogen (200-500) mg/dL D-Dimer (<0.60) mg/L FEU ABG pH (7.35-7.45) ABG pCO2 (35-45) mmHg ABG pO2 (83-108) mmHg ABG O2 Saturation (94-97) % Sodium (137-145) mmol/L Carbon Dioxide (22-30) mmol/L BUN (9-20) mg/dL Creatinine (0.66-1.25) mg/dL Glucose (74-99) mg/dL POC Glucose (mg/dL) 194 H (75-99) mg/dL Magnesium (1.6-2.3) mg/dL Total Bilirubin (0.2-1.3) mg/dL AST (17-59) U/L ALT (4-49) U/L Lactate Dehydrogenase (313-618) U/L Troponin I (0.000-0.034) ng/mL Triglycerides (<150) mg/dL Microbiology - Last 24 Hours (Table) 02/01/21 06:30 Urine Culture - Preliminary Urine,Catheterized
--- NOTE | 2021-02-01 12:53 | P.PN ---
Progress Note - Text Patient is stable. Heart rates in the normal range Absence of the sinus tachycardia today as opposed to yesterday when he was in florid pulmonary edema His color is excellent Lower extremity pulses of good color is good especially in the side of the Impala Urine output is excellent He is on an IV Lasix drip We are starting low-dose beta blockers as long as blood pressure control related He is on dual antiplatelet therapy as well as on heparin He is on atorvastatin He has severe triple-vessel coronary artery disease and underwent stenting yesterday The plan is to continue IV Lasix drip, watch BUN and creatinine, watch lower extremity pulses and circulation Use the Impala for the maximum possible duration, as safely as possible without compromising his lower extremity circulation His LVEDP was almost 49 mmHg preoperatively Plan Continue Lasix drip Obtain LVEDP measurements from the Impala data ([facility] of )on a daily basis and as the LVEDP starts to reduce/improve Please see full dictation by nurse practitioner
[2021-02-01] MEDS: HEPARIN SOD,PORK IN 0.45% NACL 25,000 UNIT in 0.45% NACL 1 250ML.BAG IV SCH (14:33)
--- NOTE | 2021-02-01 14:43 | P.PN ---
Subjective Progress Note Date: 02/01/21 Principal diagnosis: ST elevated myocardial infarction This is a 70-year-old white male, with history of hypertension, diabetes, dyslipidemia, chronic neck pain, depression, chronic nicotine dependence, no previous history of documented coronary artery disease. Patient came into the hospital with symptoms of acute shortness of breath. Patient woke up this morning and he was complaining of shortness of breath, he had no dizziness no palpitation no nausea no vomiting or diaphoresis. However the patient was noted to be hector in color and clammy. EKG upon his initial presentation showed ST elevation in the anterolateral leads. Chest x-ray showed evidence of congestive heart failure. Troponin was 1.89. Patient was seen by cardiology and he was noted to have acute anterior lateral stress ST elevated myocardial infarction, hence the patient was taken straight to cardiac catheterization. While in the cardiac catheterization lab, patient underwent stenting and apparently during the cardiac catheterization patient went into full cardiogenic shock, patient was intubated and placed on mechanical ventilation, and an impella device was placed. The device was placed in the right groin through the femoral artery. Patient was transferred to the ICU on mechanical ventilation, and I was asked to see him on consultation. Patient was placed on tidal volume of 450, FiO2 of 100%, EPAP of 10, and assist control rate of 30. Chest x-ray showed evidence of pulmonary edema ABG showed a pO2 of 78 pCO2 of 51 pH of 7.23. Will increase to follow volume to 500 and will likely increase PEEP to 12. On 02/01/2021 patient seen in follow-up in the intensive care unit. He remains sedated, intubated on mechanical ventilator, with assist control mode of ventilation rate of 30, tidal vital was 500, FiO2 of 50% and PEEP of 12. This point his blood gases show pO2 of 117, pCO2 31, and pH of 7.43, and this was done on FiO2 of 50%, today's chest x-ray has been reviewed showing improving perihilar and basilar infiltrates. Hemodynamically patient remains on Impella device. He is on 0.9 normal saline at 20 ML per hour, his Diprivan and is at 35 mics per kilo per minute, and Lasix infusion at 10 mg per hour, his heparin infusion is at weight-based protocol. He is in negative fluid balance, -1009 mL over the last 24 hours. Today's labs show improvement of patient's white blood cell count down to 14.6, hemoglobin is 13.2, CMP showed sodium of 134, potassium is 4.0, chloride is 107, CO2 is 20, BUN of 30, creatinine is 1.55. Patient's second troponin increased to 149. The heart rhythm is sinus rhythm on the monitor with a rate of 68 BPM, not requiring any vasopressor support at this time, we added empiric antibiotics in the form of cefepime and vancomycin for e mpiric antibiotic coverage especially in view of elevated white count and multiple indwelling lines. patient was tested for COVID-19 via PCR test and was found to be negative. Patient continues on Lasix, and is producing urine output in the order of 250-400 mL per hour. Patient also remains on aspirin 81 mg and Brilinta. His echocardiogram showed severely impaired left acute systolic function with an EF of 25-30% Objective - Vital Signs Vital signs: Vital Signs Temp 100.8 F H 02/01/21 12:00 Pulse 65 02/01/21 14:00 Resp 30 H 02/01/21 14:00 BP 97/70 02/01/21 14:00 Pulse Ox 95 02/01/21 14:00 Intake & Output 01/31/21 02/01/21 02/01/21 18:59 06:59 18:59 Intake Total 807.285 073.996 2069.069 Output Total 700 1254 2125 Balance 107.285 -630.837 -1009.931 Weight 124.284 kg 101.6 kg 101.6 kg Intake: IV 770 240 130 0.9 20 Sodium Chloride 0.9% 1, 200 130 000 ml @ 20 mls/hr IV . Q24H [facility] Rx#:[id number] Sodium Chloride 0.9% 1, 170 20 000 ml @ 50 mls/hr IV . Q20H [facility] Rx#:[id number] Intake, IV Titration 37.285 383.163 925.069 Amount Cefepime 2 gm In Sodium 50.0 Chloride 0.9% 100 ml @ 25 mls/hr IVPB Q12H [facility] Rx# :[id number] Furosemide 100 mg In 79 100 Sodium Chloride 0.9% 90 ml @ 10 MG/HR 10 mls/hr IV .Q10H [facility] Rx#: [id number] Heparin Sod,Pork in 0.45% 69.064 101.73 NaCl 25,000 unit In 0.45 % NaCl 1 250ml.bag @ 7.7 UNIT/KG/HR 9.57 mls/hr IV .Q24H [facility] Rx#:[id number] Vancomycin 1,750 mg In 501 Sodium Chloride 0.9% 500 ml 500 ml @ 167 mls/hr IVPB Q16H [facility] Rx#: [id number] propofoL 1,000 mg In 37.285 235.099 172.339 Empty Bag 1 bag @ Titrate IV .Q0M [facility] Rx#: [id number] Tube Feeding 30 Other 30 Output: Urine 700 1254 2125 Other: Voiding Method Indwelling Catheter Indwelling Catheter Indwelling Catheter ABP, PAP, CO, CI - Last Documented Arterial Blood Pressure 104/76 - Exam GENERAL EXAM: Sedated, intubated, 70-year-old obese white male on assist control mode of ventilation, with the FiO2 of 50% and PEEP of 12, comfortable in no apparent distress. HEAD: Normocephalic/atraumatic. EYES: Normal reaction of pupils, equal size. Conjunctiva pink, sclera white. NOSE: Clear with pink turbinates. THROAT: No erythema or exudates. NECK: No masses, no JVD, no thyroid enlargement, no adenopathy. CHEST: No chest wall deformity. Symmetrical expansion. LUNGS: Equal air entry with no crackles, wheeze, rhonchi or dullness. CVS: Regular rate and rhythm, normal S1 and S2, no gallops, no murmurs, no rubs ABDOMEN: Soft, obese, nontender. No hepatosplenomegaly, normal bowel sounds, no guarding or rigidity. EXTREMITIES: No clubbing, no edema, no cyanosis, 2+ pulses and upper and lower extremities. Patient has right groin vascular access for Impella device MUSCULOSKELETAL: Muscle strength and tone normal. SPINE: No scoliosis or deformity SKIN: No rashes CENTRAL NERVOUS SYSTEM: Sedated, intubated. No focal deficits, tone is normal in all 4 extremities. - Labs CBC & Chem 7: 02/01/21 01:10 02/01/21 04:30 Labs: Abnormal Lab Results - Last 24 Hours (Table) 01/31/21 01/31/21 01/31/21 Range/Units 15:00 15:00 15:00 WBC 18.6 H (3.8-10.6) k/uL Neutrophils # 16.7 H (1.3-7.7) k/uL Lymphocytes # 0.7 L (1.0-4.8) k/uL APTT (22.0-30.0) sec Fibrinogen 533 H (200-500) mg/dL D-Dimer 1.54 H (<0.60) mg/L FEU ABG pH (7.35-7.45) ABG pCO2 (35-45) mmHg ABG pO2 (83-108) mmHg ABG O2 Saturation (94-97) % Sodium (137-145) mmol/L Carbon Dioxide (22-30) mmol/L BUN (9-20) mg/dL Creatinine (0.66-1.25) mg/dL Glucose (74-99) mg/dL POC Glucose (mg/dL) (75-99) mg/dL Total Bilirubin (0.2-1.3) mg/dL AST (17-59) U/L ALT (4-49) U/L Lactate Dehydrogenase 2041 H (313-618) U/L Troponin I (0.000-0.034) ng/mL Triglycerides (<150) mg/dL 01/31/21 01/31/21 01/31/21 Range/Units 15:00 15:00 15:34 WBC (3.8-10.6) k/uL Neutrophils # (1.3-7.7) k/uL Lymphocytes # (1.0-4.8) k/uL APTT 46.9 H (22.0-30.0) sec Fibrinogen (200-500) mg/dL D-Dimer (<0.60) mg/L FEU ABG pH 7.23 L (7.35-7.45) ABG pCO2 51 H (35-45) mmHg ABG pO2 78 L (83-108) mmHg ABG O2 Saturation 93.3 L (94-97) % Sodium 134 L (137-145) mmol/L Carbon Dioxide 20 L (22-30) mmol/L BUN 21 H (9-20) mg/dL Creatinine (0.66-1.25) mg/dL Glucose 234 H (74-99) mg/dL POC Glucose (mg/dL) (75-99) mg/dL Total Bilirubin (0.2-1.3) mg/dL AST 347 H (17-59) U/L ALT (4-49) U/L Lactate Dehydrogenase (313-618) U/L Troponin I (0.000-0.034) ng/mL Triglycerides (<150) mg/dL 01/31/21 01/31/21 02/01/21 Range/Units 19:11 20:28 01:06 WBC (3.8-10.6) k/uL Neutrophils # (1.3-7.7) k/uL Lymphocytes # (1.0-4.8) k/uL APTT (22.0-30.0) sec Fibrinogen (200-500) mg/dL D-Dimer (<0.60) mg/L FEU ABG pH (7.35-7.45) ABG pCO2 (35-45) mmHg ABG pO2 (83-108) mmHg ABG O2 Saturation (94-97) % Sodium 135 L (137-145) mmol/L Carbon Dioxide 18 L (22-30) mmol/L BUN 27 H (9-20) mg/dL Creatinine 1.44 H (0.66-1.25) mg/dL Glucose 142 H (74-99) mg/dL POC Glucose (mg/dL) 149 H 157 H (75-99) mg/dL Total Bilirubin (0.2-1.3) mg/dL AST (17-59) U/L ALT (4-49) U/L Lactate Dehydrogenase (313-618) U/L Troponin I (0.000-0.034) ng/mL Triglycerides 349 H (<150) mg/dL 02/01/21 02/01/21 02/01/21 Range/Units 01:06 01:06 01:10 WBC 14.6 H (3.8-10.6) k/uL Neutrophils # 12.0 H (1.3-7.7) k/uL Lymphocytes # (1.0-4.8) k/uL APTT (22.0-30.0) sec Fibrinogen 556 H (200-500) mg/dL D-Dimer (<0.60) mg/L FEU ABG pH (7.35-7.45) ABG pCO2 (35-45) mmHg ABG pO2 (83-108) mmHg ABG O2 Saturation (94-97) % Sodium (137-145) mmol/L Carbon Dioxide (22-30) mmol/L BUN (9-20) mg/dL Creatinine (0.66-1.25) mg/dL Glucose (74-99) mg/dL POC Glucose (mg/dL) (75-99) mg/dL Total Bilirubin (0.2-1.3) mg/dL AST (17-59) U/L ALT (4-49) U/L Lactate Dehydrogenase 4618 H (313-618) U/L Troponin I (0.000-0.034) ng/mL Triglycerides (<150) mg/dL 02/01/21 02/01/21 02/01/21 Range/Units 04:30 04:30 05:06 WBC (3.8-10.6) k/uL Neutrophils # (1.3-7.7) k/uL Lymphocytes # (1.0-4.8) k/uL APTT (22.0-30.0) sec Fibrinogen (200-500) mg/dL D-Dimer (<0.60) mg/L FEU ABG pH (7.35-7.45) ABG pCO2 31 L (35-45) mmHg ABG pO2 117 H (83-108) mmHg ABG O2 Saturation 98.4 H (94-97) % Sodium 134 L (137-145) mmol/L Carbon Dioxide 20 L (22-30) mmol/L BUN 30 H (9-20) mg/dL Creatinine 1.55 H (0.66-1.25) mg/dL Glucose 162 H (74-99) mg/dL POC Glucose (mg/dL) (75-99) mg/dL Total Bilirubin 1.4 H (0.2-1.3) mg/dL AST 761 H (17-59) U/L ALT 101 H (4-49) U/L Lactate Dehydrogenase (313-618) U/L Troponin I 149.000 H* (0.000-0.034) ng/mL Triglycerides (<150) mg/dL 02/01/21 02/01/21 02/01/21 Range/Units 06:51 08:32 11:51 WBC (3.8-10.6) k/uL Neutrophils # (1.3-7.7) k/uL Lymphocytes # (1.0-4.8) k/uL APTT 38.3 H (22.0-30.0) sec Fibrinogen (200-500) mg/dL D-Dimer (<0.60) mg/L FEU ABG pH (7.35-7.45) ABG pCO2 (35-45) mmHg ABG pO2 (83-108) mmHg ABG O2 Saturation (94-97) % Sodium (137-145) mmol/L Carbon Dioxide (22-30) mmol/L BUN (9-20) mg/dL Creatinine (0.66-1.25) mg/dL Glucose (74-99) mg/dL POC Glucose (mg/dL) 194 H 181 H (75-99) mg/dL Total Bilirubin (0.2-1.3) mg/dL AST (17-59) U/L ALT (4-49) U/L Lactate Dehydrogenase (313-618) U/L Troponin I (0.000-0.034) ng/mL Triglycerides (<150) mg/dL Microbiology - Last 24 Hours (Table) 02/01/21 06:30 Urine Culture - Preliminary Urine,Catheterized Assessment and Plan Plan: Assessment: #1. Acute ST elevated myocardial infarction involving anterolateral wall, status post PCI and stenting of the left anterior descending coronary artery, and placement of Impella device #2. Acute cardiogenic shock and pulmonary edema #3. Acute hypoxic respiratory failure related to the above requiring intubation and placement on mechanical ventilator support on 01/31/2021 #4. Severe ischemic cardiomyopathy with EF of 25-30% #5. Acute kidney injury related to ATN #6. Mild metabolic acidosis related to acute kidney injury #7. Morbid obesity with BMI of 37.4 kg/m #8. Benign essential hypertension #9. Dyslipidemia #10. Tobacco dependence syndrome #11. History of depression Plan: We will continue with mechanical ventilator support, will drop PEEP down to 8, FiO2 down to 45% Continue Lasix infusion, patient is maintaining negative fluid balance Today's chest x-ray has been reviewed showing improving perihilar and basilar infiltrates We'll avoid further input from cardiology on when the ImPella device will be discontinued Today's labs have been reviewed Patient was given a dose of cefepime and vancomycin for empiric antibiotic coverage We will discontinue the vancomycin and continue cefepime White blood cell count is improving, no fever. We'll start tube feedings today Recommendations for tube feedings per registered dietitian We'll continue to follow I performed a history & physical examination of the patient and discussed their management with my nurse practitioner, Mckenna Lewis. I reviewed the nurse practitioner's note and agree with the documented findings and plan of care. Lung sounds are positive for dimished breath sounds. The findings and the impression was discussed with the patient. I attest to the documentation by the nurse practitioner. Time with Patient: Greater than 30
[2021-02-01 16:25] LABS: Glucose,Whole Blood 209 mg/dL (75-99)
[2021-02-01] MEDS: HEPARIN SODIUM,PORCINE 12,500 UNIT in DEXTROSE 5% IN WATER 500 ML IV SCH ×2 (16:33)
[2021-02-01 16:35] LABS: Partial Thromboplastin Time 52.5 sec (22.0-30.0)
[2021-02-01 17:28] LABS: Potassium 3.5 mmol/L (3.5-5.1)
[2021-02-01] MEDS ORDERED: Potassium Replacement Protocol 1 EACH MISC MISCELLANE PRN (18:41)
[2021-02-01] MEDS: POTASSIUM BICARBONATE/CIT AC 20 MEQ TABLET.EFF NG-TUBE SCH ×2 (19:07→20:58)
[2021-02-01 20:53] LABS: Glucose,Whole Blood 159 mg/dL (75-99)
[2021-02-01] MEDS: SODIUM CHLORIDE 0.9% 1,000 ML IV SCH (20:59)
--- NOTE | 2021-02-01 21:11 | P.PN ---
Subjective Progress Note Date: 02/01/21 (Acute OR, acute cardiogenic shock with hypotension, on vent) Principal diagnosis: #1 acute myocardial infarction transmural associated with cardiogenic shock with hypotension and pulmonary edema. #2 acute respiratory failure, intubated and on the ventilator with hypoxemia #3 diabetes mellitus type 2 currently on insulin. #4 COPD and history of smoking. #5 hyper lipidemia. #6 ischemic cardiomyopathy with ejection fraction 25-30%. #7 acute kidney injury with the associated metabolic acidosis #8 obesity. #9 hypertension with hypertensive heart disease. #10 metabolic syndrome #11 tobacco dependency. Progress note date of service 02/01/[address] simon Cardiac catheterization done by Dr. Meier on 01/31/2021. Conclusion acute large anterolateral ST segment elevation myocardial infarction. Critical triple vessel coronary artery disease Cardiogenic shock Successful stenting of the culprit lesion with the critical thrombotic lesion involving the proximal left anterior descending artery. Successful placement of Impella cp in the left ventricle With the advice with: 1 antiplatelet therapy #2 assess perfusion of the right foot #3 anti-ischemic medication #4 high intensity statin #5 pull impella in the next 2448 hour period Patient seen and evaluated in ICU room 260, patient on the vent, sedated with propofol., Heparin infusion IV, insulin IV, levothyroxin IV 25 g daily also on cefepime antibiotic 2 g every 12 hours IV piggyback by Dr. Rojas. Because of suspicious of pneumonia patient had also vancomycin, brilinta, gastric feeding. Patient on ventilator managed by Dr. Rojas pulmonary and critical. Not communicating and sedated. Neck was supple trachea midline Chest with the ventilator was suspicious of aspiration and perihilar and basilar infiltrate which is improving with the antibiotic in the lost chest x-ray done today on 02/01/2021. Heart regular sinus with the hypotension supported with IV fluid and history of decompensation and congestive heart failure and ejection fraction 25% with the previous echocardiogram on 2013 was 60%. With the ischemic cardiomyopathy and 3 vessel disease and subtotal occlusion of the right coronary artery. Abdomen positive bowel sounds, has a retropharyngeal feeding tube. And bowel sound was present. Extremities positive perfusion with positive pulses. Neurologically sedated. Diabetes mellitus type 2 insulin-dependent covered with regular insulin. LDH 6020, fibrinogen 598., On heparin infusion. Assessment and plan: #1 [facility] in critical stage. #2 we'll continue the current therapy by critical care and pulmonary and vessel captain. #3 continuation of the monitoring the patient prognosis is very guarded. #4 his sister has been notified also by the office and she is aware of his condition Objective - Vital Signs Vital signs: Vital Signs Temp 100.3 F H 02/01/21 16:00 Pulse 67 02/01/21 19:00 Resp 30 H 02/01/21 19:00 BP 93/75 02/01/21 19:00 Pulse Ox 94 L 02/01/21 19:00 Intake & Output 02/01/21 02/01/21 02/02/21 06:59 18:59 06:59 Intake Total 603.467 6862.116 40 Output Total 1254 2920 175 Balance -630.837 -1386.884 -135 Weight 101.6 kg 101.6 kg Intake: IV 240 210 20 0.9 20 Sodium Chloride 0.9% 1, 200 210 20 000 ml @ 20 mls/hr IV . Q24H [facility] Rx#:[id number] Sodium Chloride 0.9% 1, 20 000 ml @ 50 mls/hr IV . Q20H [facility] Rx#:[id number] Intake, IV Titration 255.112 9524.116 Amount Cefepime 2 gm In Sodium 50.0 Chloride 0.9% 100 ml @ 25 mls/hr IVPB Q12H [facility] Rx# :[id number] Furosemide 100 mg In 79 157 Sodium Chloride 0.9% 90 ml @ 10 MG/HR 10 mls/hr IV .Q10H [facility] Rx#: [id number] Heparin Sod,Pork in 0.45% 69.064 179.072 NaCl 25,000 unit In 0.45 % NaCl 1 250ml.bag @ 7.7 UNIT/KG/HR 9.57 mls/hr IV .Q24H [facility] Rx#:[id number] Vancomycin 1,750 mg In 501 Sodium Chloride 0.9% 500 ml 500 ml @ 167 mls/hr IVPB Q16H [facility] Rx#: [id number] propofoL 1,000 mg In 235.099 306.044 Empty Bag 1 bag @ Titrate IV .Q0M [facility] Rx#: [id number] Tube Feeding 70 20 Other 60 Output: Urine 1254 2920 175 Other: Voiding Method Indwelling Catheter Indwelling Catheter ABP, PAP, CO, CI - Last Documented Arterial Blood Pressure 109/76 - Labs CBC & Chem 7: 02/01/21 01:10 02/01/21 15:48 Labs: Abnormal Lab Results - Last 24 Hours (Table) 02/01/21 02/01/21 02/01/21 Range/Units 01:06 01:06 01:06 WBC (3.8-10.6) k/uL Neutrophils # (1.3-7.7) k/uL APTT (22.0-30.0) sec Fibrinogen 556 H (200-500) mg/dL ABG pCO2 (35-45) mmHg ABG pO2 (83-108) mmHg ABG O2 Saturation (94-97) % Sodium 135 L (137-145) mmol/L Carbon Dioxide 18 L (22-30) mmol/L BUN 27 H (9-20) mg/dL Creatinine 1.44 H (0.66-1.25) mg/dL Glucose 142 H (74-99) mg/dL POC Glucose (mg/dL) (75-99) mg/dL Total Bilirubin (0.2-1.3) mg/dL AST (17-59) U/L ALT (4-49) U/L Lactate Dehydrogenase 4618 H (313-618) U/L Troponin I (0.000-0.034) ng/mL Triglycerides 349 H (<150) mg/dL 02/01/21 02/01/21 02/01/21 Range/Units 01:10 04:30 04:30 WBC 14.6 H (3.8-10.6) k/uL Neutrophils # 12.0 H (1.3-7.7) k/uL APTT (22.0-30.0) sec Fibrinogen (200-500) mg/dL ABG pCO2 (35-45) mmHg ABG pO2 (83-108) mmHg ABG O2 Saturation (94-97) % Sodium 134 L (137-145) mmol/L Carbon Dioxide 20 L (22-30) mmol/L BUN 30 H (9-20) mg/dL Creatinine 1.55 H (0.66-1.25) mg/dL Glucose 162 H (74-99) mg/dL POC Glucose (mg/dL) (75-99) mg/dL Total Bilirubin 1.4 H (0.2-1.3) mg/dL AST 761 H (17-59) U/L ALT 101 H (4-49) U/L Lactate Dehydrogenase (313-618) U/L Troponin I 149.000 H* (0.000-0.034) ng/mL Triglycerides (<150) mg/dL 02/01/21 02/01/21 02/01/21 Range/Units 05:06 06:51 08:32 WBC (3.8-10.6) k/uL Neutrophils # (1.3-7.7) k/uL APTT 38.3 H (22.0-30.0) sec Fibrinogen (200-500) mg/dL ABG pCO2 31 L (35-45) mmHg ABG pO2 117 H (83-108) mmHg ABG O2 Saturation 98.4 H (94-97) % Sodium (137-145) mmol/L Carbon Dioxide (22-30) mmol/L BUN (9-20) mg/dL Creatinine (0.66-1.25) mg/dL Glucose (74-99) mg/dL POC Glucose (mg/dL) 194 H (75-99) mg/dL Total Bilirubin (0.2-1.3) mg/dL AST (17-59) U/L ALT (4-49) U/L Lactate Dehydrogenase (313-618) U/L Troponin I (0.000-0.034) ng/mL Triglycerides (<150) mg/dL 02/01/21 02/01/21 02/01/21 Range/Units 11:51 15:48 15:48 WBC (3.8-10.6) k/uL Neutrophils # (1.3-7.7) k/uL APTT 52.5 H (22.0-30.0) sec Fibrinogen 598 H (200-500) mg/dL ABG pCO2 (35-45) mmHg ABG pO2 (83-108) mmHg ABG O2 Saturation (94-97) % Sodium (137-145) mmol/L Carbon Dioxide (22-30) mmol/L BUN (9-20) mg/dL Creatinine (0.66-1.25) mg/dL Glucose (74-99) mg/dL POC Glucose (mg/dL) 181 H (75-99) mg/dL Total Bilirubin (0.2-1.3) mg/dL AST (17-59) U/L ALT (4-49) U/L Lactate Dehydrogenase 6020 H (313-618) U/L Troponin I (0.000-0.034) ng/mL Triglycerides (<150) mg/dL 02/01/21 Range/Units 16:23 WBC (3.8-10.6) k/uL Neutrophils # (1.3-7.7) k/uL APTT (22.0-30.0) sec Fibrinogen (200-500) mg/dL ABG pCO2 (35-45) mmHg ABG pO2 (83-108) mmHg ABG O2 Saturation (94-97) % Sodium (137-145) mmol/L Carbon Dioxide (22-30) mmol/L BUN (9-20) mg/dL Creatinine (0.66-1.25) mg/dL Glucose (74-99) mg/dL POC Glucose (mg/dL) 209 H (75-99) mg/dL Total Bilirubin (0.2-1.3) mg/dL AST (17-59) U/L ALT (4-49) U/L Lactate Dehydrogenase (313-618) U/L Troponin I (0.000-0.034) ng/mL Triglycerides (<150) mg/dL Microbiology - Last 24 Hours (Table) 02/01/21 06:30 Urine Culture - Preliminary Urine,Catheterized
[2021-02-01 23:10] LABS: Glucose,Whole Blood 179 mg/dL (75-99)
[2021-02-02 02:56] LABS: Partial Thromboplastin Time 46.2 sec (22.0-30.0); Prothrombin Time 10.5 sec (9.0-12.0)
[2021-02-02] MEDS: FUROSEMIDE 100 MG in SODIUM CHLORIDE 0.9% 90 ML IV SCH ×3 (03:43→20:46)
[2021-02-02 04:08] LABS: Glucose,Whole Blood 185 mg/dL (75-99)
[2021-02-02 04:23] LABS: Basophils # (A) 0.1 k/uL (0-0.2); Basophils % (A) 0 %; Eosinophils # (A) 0.1 k/uL (0-0.7); Eosinophils % (A) 1 %; HCT 37.5 % (39.0-53.0); HGB 12.4 gm/dL (13.0-17.5); Lymphocytes # (A) 2.1 k/uL (1.0-4.8); Lymphocytes % (A) 13 %; MCH 30.4 pg (25.0-35.0); Mean Platelet Volume 9.9; Monocytes # (A) 1.1 k/uL (0-1.0); Monocytes % (A) 6 %; Neutrophils # (A) 13.2 k/uL (1.3-7.7); Neutrophils % (A) 78 %; Platelet Count 177 k/uL (150-450); RBC 4.07 m/uL (4.30-5.90); RDW 14.7 % (11.5-15.5); WBC 16.9 k/uL (3.8-10.6)
[2021-02-02] MEDS: INSULIN ASPART (NovoLOG) 100 UNIT/ML VIAL SQ SCH ×5 (04:28→19:49)
[2021-02-02 04:36] LABS: Calcium 8.7 mg/dL (8.4-10.2); Magnesium 2.2 mg/dL (1.6-2.3); Potassium 2.9 mmol/L (3.5-5.1)
[2021-02-02] MEDS: HEPARIN SOD,PORK IN 0.45% NACL 25,000 UNIT in 0.45% NACL 1 250ML.BAG IV SCH ×2 (05:52→21:59)
[2021-02-02 05:54] LABS: ABG Base Excess 2.1 mmol/L; ABG HCO3 25 mmol/L (21-25); ABG Oxygen Saturation 96.4 % (94-97); ABG PCO2 32 mmHg (35-45); ABG PH 7.51 (7.35-7.45); ABG PO2 78 mmHg (83-108); ABG TCO2 26 mmol/L (19-24); Allen Test Performed? Yes
[2021-02-02] MEDS: CEFEPIME 2 GM in SODIUM CHLORIDE 0.9% 100 ML IVPB SCH ×2 (05:57→19:08)
[2021-02-02] MEDS: POTASSIUM CHLORIDE 20 MEQ in WATER FOR INJECTION 1 100ML.BAG IVPB SCH ×3 (05:58→10:06)
[2021-02-02] MEDS: POTASSIUM BICARBONATE/CIT AC 20 MEQ TABLET.EFF PO SCH ×3 (06:00→08:57)
[2021-02-02] MEDS ORDERED: POTASSIUM CHLORIDE ER 20 MEQ TAB.ER PO SCH (06:00)
--- NOTE | 2021-02-02 07:20 | XR ---
EXAMINATION TYPE: XR chest 1V portable DATE OF EXAM: 02/02/2021 COMPARISON: 02/02/2020 HISTORY: Tube placement TECHNIQUE: Single frontal view of the chest is obtained. FINDINGS: ET and NG tube stable. There is left lower lobe infiltrate and small effusion. Tiny right effusion. Hilar infiltrate and increased lung markings are noted. No pneumothorax. Heart enlarged. IMPRESSION: Stable x-ray correlate for CHF versus bilateral pneumonia with pleural effusion.
[2021-02-02 07:32] LABS: Glucose,Whole Blood 203 mg/dL (75-99)
[2021-02-02] MEDS: LEVOTHYROXINE IVP 100 MCG/5 ML VIAL IV SCH (08:56)
[2021-02-02] MEDS: METOPROLOL TARTRATE 12.5 MG TAB PO SCH ×2 (08:57→20:46)
[2021-02-02] MEDS: CHLORHEXIDINE GLUCONATE 15 ML CUP MUCOUS MEM SCH ×2 (08:58→20:46)
[2021-02-02] MEDS: ATORVASTATIN 80 MG TAB PO SCH (08:58)
[2021-02-02] MEDS: ASPIRIN 81 MG PO SCH (08:58)
[2021-02-02] MEDS: TICAGRELOR 90 MG TAB PO SCH ×2 (09:02→20:46)
[2021-02-02 09:03] LABS: Glucose,Whole Blood 182 mg/dL (75-99)
--- NOTE | 2021-02-02 11:43 | P.PN ---
Subjective Progress Note Date: 02/02/21 Principal diagnosis: Cardiogenic shock and acute hypoxic respiratory failure secondary to cardiogenic shock This is a 70-year-old white male, with history of hypertension, diabetes, dyslipidemia, chronic neck pain, depression, chronic nicotine dependence, no previous history of documented coronary artery disease. Patient came into the hospital with symptoms of acute shortness of breath. Patient woke up this morning and he was complaining of shortness of breath, he had no dizziness no palpitation no nausea no vomiting or diaphoresis. However the patient was noted to be hector in color and clammy. EKG upon his initial presentation showed ST elevation in the anterolateral leads. Chest x-ray showed evidence of congestive heart failure. Troponin was 1.89. Patient was seen by cardiology and he was noted to have acute anterior lateral stress ST elevated myocardial infarction, hence the patient was taken straight to cardiac catheterization. While in the cardiac catheterization lab, patient underwent stenting and apparently during the cardiac catheterization patient went into full cardiogenic shock, patient was intubated and placed on mechanical ventilation, and an impella device was placed. The device was placed in the right groin through the femoral artery. Eboni duarte was transferred to the ICU on mechanical ventilation, and I was asked to see him on consultation. Patient was placed on tidal volume of 450, FiO2 of 100%, EPAP of 10, and assist control rate of 30. Chest x-ray showed evidence of pulmonary edema ABG showed a pO2 of 78 pCO2 of 51 pH of 7.23. Will increase to follow volume to 500 and will likely increase PEEP to 12. on 02/01/2021 patient seen in follow-up in the intensive care unit. He remains sedated, intubated on mechanical ventilator, with assist control mode of ventilation rate of 30, tidal vital was 500, FiO2 of 50% and PEEP of 12. This point his blood gases show pO2 of 117, pCO2 31, and pH of 7.43, and this was done on FiO2 of 50%, today's chest x-ray has been reviewed showing improving perihilar and basilar infiltrates. Hemodynamically patient remains on Impella device. He is on 0.9 normal saline at 20 ML per hour, his Diprivan and is at 35 mics per kilo per minute, and Lasix infusion at 10 mg per hour, his heparin i nfusion is at weight-based protocol. He is in negative fluid balance, -1009 mL over the last 24 hours. Today's labs show improvement of patient's white blood cell count down to 14.6, hemoglobin is 13.2, CMP showed sodium of 134, potassium is 4.0, chloride is 107, CO2 is 20, BUN of 30, creatinine is 1.55. Patient's second troponin increased to 149. The heart rhythm is sinus rhythm on the monitor with a rate of 68 BPM, not requiring any vasopressor support at this time, we added empiric antibiotics in the form of cefepime and vancomycin for empiric antibiotic coverage especially in view of elevated white count and multiple indwelling lines. patient was tested for COVID-19 via PCR test and was found to be negative. Patient continues on Lasix, and is producing urine output in the order of 250-400 mL per hour. Patient also remains on aspirin 81 mg and Brilinta. His echocardiogram showed severely impaired left acute systolic function with an EF of 25-30% On 02/02/2021, patient remains in the ICU, intubated and mechanically ventilated. Patient continues to have the left ventricular assist device in place. Remains on Lasix drip at 10 mg per hour remains on propofol at 45 mcg/kg/m, he is also on heparin and antiplatelet therapy/UL. He is on vital hp 30 mL per hour. His ventilator settings are assist control rate of 30 volume of 500 FiO2 45% PEEP is at 8. ABG showed a pO2 of 78 pCO2 of 32 pH of 7.51. Sugars are running a bit high, hence I recommended adding Levemir insulin 20 units daily. And continue Accu-Cheks. Cardiology is planning to keep the ventricular assist device for another day, and we will hold on plans to wean and exited the patient on to the impact has been removed. Labs were reviewed today, WBC count is 16.9 hemoglobin is 12.4. Potassium is low at 2.9 be corrected as per protocol. BUN is 39 and creatinine is 1.61, slightly worse compared to the last couple of days. LDH is over 5000. Patient is a negative balance about 3-1/2 L since he was admitted to the ICU, chest x-ray continues to show mild interstitial edema bilaterally. Objective - Vital Signs Vital signs: Vital Signs Temp 99.5 F 02/02/21 08:30 Pulse 67 02/02/21 11:00 Resp 30 H 02/02/21 11:00 BP 103/81 02/02/21 11:00 Pulse Ox 96 02/02/21 11:00 Intake & Output 02/01/21 02/02/21 02/02/21 18:59 06:59 18:59 Intake Total 5066.733 8719.159 439.582 Output Total 2920 2440 1075 Balance -1386.884 -855.841 -635.418 Weight 101.6 kg 101.5 kg Intake: IV 210 493 175 Furosemide 100 mg In 110 50 Sodium Chloride 0.9% 90 ml @ 10 MG/HR 10 mls/hr IV .Q10H [facility] Rx#: [id number] Heparin Sodium,Porcine 12 110 10 ,500 unit In Dextrose 5% in Water 500 ml @ Per Protocol IV DIRECTED [facility] Rx#:[id number] Pressure Bag 33 15 Sodium Chloride 0.9% 1, 210 240 100 000 ml @ 20 mls/hr IV . Q24H [facility] Rx#:[id number] Intake, IV Titration 1193.116 656.159 84.582 Amount Cefepime 2 gm In Sodium 50.0 Chloride 0.9% 100 ml @ 25 mls/hr IVPB Q12H [facility] Rx# :[id number] Furosemide 100 mg In 157 100 Sodium Chloride 0.9% 90 ml @ 10 MG/HR 10 mls/hr IV .Q10H [facility] Rx#: [id number] Heparin Sod,Pork in 0.45% 179.072 241.758 NaCl 25,000 unit In 0.45 % NaCl 1 250ml.bag @ 7.7 UNIT/KG/HR 9.57 mls/hr IV .Q24H [facility] Rx#:[id number] Vancomycin 1,750 mg In 501 Sodium Chloride 0.9% 500 ml 500 ml @ 167 mls/hr IVPB Q16H [facility] Rx#: [id number] propofoL 1,000 mg In 306.044 314.401 84.582 Empty Bag 1 bag @ Titrate IV .Q0M [facility] Rx#: [id number] Tube Feeding 70 270 150 Other 60 165 30 Output: Urine 2920 2440 1075 Other: Voiding Method Indwelling Catheter Indwelling Catheter Indwelling Catheter ABP, PAP, CO, CI - Last Documented Arterial Blood Pressure 105/72 - Exam Physical Exam: Revealed a 70-year-old white male, morbidly obese, on mechanical ventilation, sedated, on propofol. Head: Atraumatic, normocephalic. Endotracheal tube is noted, no orogastric tube has been placed yet HEENT: Short obese neck [Neck is supple.] [No neck masses.] [No thyromegaly.] [No JVD.] Chest: [Symmetrical chest expansion, crackles and rhonchi noted bilaterally. Cardiac Exam: Distant S1 and S2, no S3 gallop was appreciated. Abdomen: [Morbidly obese, Soft, nontender, no megaly, no rebound, no guarding, normal bowel sounds.] Extremities: [No clubbing, 1+ bipedal edema, no cyanosis.] Diminished distal pulses bilaterally. Right groin, site of impella insertion was noted. Seems to be clean. Triple-lumen catheter noted in the left groin also seems to be clean. Neurological Exam: Could not assess, patient is sedated and paralyzed now. Psychiatric: Could not assess. Skin: No rashes. - Labs CBC & Chem 7: 02/02/21 04:05 02/02/21 04:05 Labs: Abnormal Lab Results - Last 24 Hours (Table) 02/01/21 02/01/21 02/01/21 Range/Units 11:51 15:48 15:48 WBC (3.8-10.6) k/uL RBC (4.30-5.90) m/uL Hgb (13.0-17.5) gm/dL Hct (39.0-53.0) % Neutrophils # (1.3-7.7) k/uL Monocytes # (0-1.0) k/uL APTT 52.5 H (22.0-30.0) sec Fibrinogen 598 H (200-500) mg/dL ABG pH (7.35-7.45) ABG pCO2 (35-45) mmHg ABG pO2 (83-108) mmHg ABG Total CO2 (19-24) mmol/L Potassium (3.5-5.1) mmol/L BUN (9-20) mg/dL Creatinine (0.66-1.25) mg/dL Glucose (74-99) mg/dL POC Glucose (mg/dL) 181 H (75-99) mg/dL Lactate Dehydrogenase 6020 H (313-618) U/L 02/01/21 02/01/21 02/01/21 Range/Units 16:23 20:51 23:09 WBC (3.8-10.6) k/uL RBC (4.30-5.90) m/uL Hgb (13.0-17.5) gm/dL Hct (39.0-53.0) % Neutrophils # (1.3-7.7) k/uL Monocytes # (0-1.0) k/uL APTT (22.0-30.0) sec Fibrinogen (200-500) mg/dL ABG pH (7.35-7.45) ABG pCO2 (35-45) mmHg ABG pO2 (83-108) mmHg ABG Total CO2 (19-24) mmol/L Potassium (3.5-5.1) mmol/L BUN (9-20) mg/dL Creatinine (0.66-1.25) mg/dL Glucose (74-99) mg/dL POC Glucose (mg/dL) 209 H 159 H 179 H (75-99) mg/dL Lactate Dehydrogenase (313-618) U/L 02/02/21 02/02/21 02/02/21 Range/Units 02:14 04:05 04:05 WBC 16.9 H (3.8-10.6) k/uL RBC 4.07 L (4.30-5.90) m/uL Hgb 12.4 L (13.0-17.5) gm/dL Hct 37.5 L (39.0-53.0) % Neutrophils # 13.2 H (1.3-7.7) k/uL Monocytes # 1.1 H (0-1.0) k/uL APTT 46.2 H (22.0-30.0) sec Fibrinogen 653 H (200-500) mg/dL ABG pH (7.35-7.45) ABG pCO2 (35-45) mmHg ABG pO2 (83-108) mmHg ABG Total CO2 (19-24) mmol/L Potassium 2.9 L (3.5-5.1) mmol/L BUN 39 H (9-20) mg/dL Creatinine 1.61 H (0.66-1.25) mg/dL Glucose 181 H (74-99) mg/dL POC Glucose (mg/dL) (75-99) mg/dL Lactate Dehydrogenase 5432 H (313-618) U/L 02/02/21 02/02/21 02/02/21 Range/Units 04:07 05:50 07:31 WBC (3.8-10.6) k/uL RBC (4.30-5.90) m/uL Hgb (13.0-17.5) gm/dL Hct (39.0-53.0) % Neutrophils # (1.3-7.7) k/uL Monocytes # (0-1.0) k/uL APTT (22.0-30.0) sec Fibrinogen (200-500) mg/dL ABG pH 7.51 H (7.35-7.45) ABG pCO2 32 L (35-45) mmHg ABG pO2 78 L (83-108) mmHg ABG Total CO2 26 H (19-24) mmol/L Potassium (3.5-5.1) mmol/L BUN (9-20) mg/dL Creatinine (0.66-1.25) mg/dL Glucose (74-99) mg/dL POC Glucose (mg/dL) 185 H 203 H (75-99) mg/dL Lactate Dehydrogenase (313-618) U/L 02/02/21 Range/Units 09:01 WBC (3.8-10.6) k/uL RBC (4.30-5.90) m/uL Hgb (13.0-17.5) gm/dL Hct (39.0-53.0) % Neutrophils # (1.3-7.7) k/uL Monocytes # (0-1.0) k/uL APTT (22.0-30.0) sec Fibrinogen (200-500) mg/dL ABG pH (7.35-7.45) ABG pCO2 (35-45) mmHg ABG pO2 (83-108) mmHg ABG Total CO2 (19-24) mmol/L Potassium (3.5-5.1) mmol/L BUN (9-20) mg/dL Creatinine (0.66-1.25) mg/dL Glucose (74-99) mg/dL POC Glucose (mg/dL) 182 H (75-99) mg/dL Lactate Dehydrogenase (313-618) U/L Microbiology - Last 24 Hours (Table) 02/01/21 06:36 Blood Culture - Preliminary Blood No Growth after 24 hours 02/01/21 06:30 Urine Culture - Preliminary Urine,Catheterized Assessment and Plan Assessment: Impression: Acute ST elevation myocardial infarction, status post stenting of LAD and placement of imPella device Cardiogenic shock while in the cardiac catheterization lab requiring intubation and mechanical ventilation and left ventricular assist device placement. Acute hypoxic respiratory failure secondary to pulmonary edema secondary to cardiogenic shock secondary to acute ST elevation IN. Morbid obesity, BMI of 37.2 Benign essential hypertension Dyslipidemia Tobacco dependence syndrome. History of depression Recommendation: Continue ventilatory support. Vent settings were noted and remained the same. As noted earlier Continue left ventricular assist device and that being addressed by cardiology on the case. Continue Lasix drip. Continue antibiotics empirically discontinued vancomycin because of his renal status, and we'll continue cefepime. Cultures are negative so far. Continue to monitor renal profile daily Continue to monitor daily chest x-rays. Start enteral feeding/nutrition support. Continue bronchodilators/DuoNeb. Continue heparin and dual antiplatelet therapy as per cardiology. We'll address weaning and possible extubation once the left ventricle assist device has been removed. Critical care time is over 30 minutes. We'll continue to follow. Prognosis is definitely guarded at this point. Time with Patient: Greater than 30
[2021-02-02 12:24] LABS: Glucose,Whole Blood 189 mg/dL (75-99)
--- NOTE | 2021-02-02 14:46 | P.PN ---
Subjective Progress Note Date: 02/02/21 (Intubated on the vent) Dictation on progress note date of service 02/02/[address] Celeste. Patient seen and evaluated in the ICU 260 room, discussed with his sister at bedside, answered her question in regard of the psychotropic medication. Patient is sedated, intubated, on the support of the ventilator as well as on left ventricular assist with Impala. His heart rate in the 70s. And the respiratory rate in the 30s, pressure 94/72 with a mean 79 with fluctuation to 102/70 and oxygen saturation on FiO2 45% 95% with a mechanical ventilation. ABGs done this morning on 02/02/2021. PH 7.51, pCO2 32, pO2 78, HCO3 25, total CO2 2 6 base excess 2.1 with a saturation 96.4 FiO2 45, potassium 3.7. POC glucose [id number] covered with insulin to scale. Blood culture preliminary no growth and urine culture no growth. Medication change non-continued as the same as yesterday. General condition: Critical. Physical exam patient with NG tube, feeding tube, endotracheal tube for ventilation mechanical, Banda catheter, IVs lines. Patient sedated, and on the vent, no communication at this time. Head was normocephalic and atraumatic Neck was supple Chest there are wheezes no rhonchi's and he intubated on the ventilator and sedated improving the right hilar infiltrate and left lower lobe on antibiotic cefepime and vancomycin Heart underlying ventricular assist, congestive heart failure and pulmonary edema improved still hypotensive with the recovery of his tonsil NV with ST segment elevation in the EKG and the drop in his ejection fraction 25%. Abdomen soft positive bowel sounds Extremities no edema and positive pulses. Neurologically deep-sea dictation. Chest x-ray 02/02/21 impression unstable x-ray correlate for congestive heart failure versus bilateral pneumonia with pleural effusion.. CBC indicating WBC of 16.9, hemoglobin 12.4, and hematocrit 37.5. Potassium 3.7. Assessment and plan #1still patient in critical stage with cardiac assist and the pulmonary assessed. #2 acute ischemic cardiomyopathy with the hypokinesis and ejection fraction 25%. 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 #7 chronic smoker with nicotine dependence. #8 hyperlipidemia #9 hyper tension with hypertensive heart disease #10 hypothyroidism. #11 acute hypoxic respiratory failure on the vent. Discussed with his sister in the ICU and will continue the same plan of treatment, followed by cardiology and pulmonary and critical disease physicians. Condition is critical. Objective - Vital Signs Vital signs: Vital Signs Temp 100.3 F H 02/02/21 12:00 Pulse 70 02/02/21 14:00 Resp 30 H 02/02/21 14:00 BP 94/72 02/02/21 14:00 Pulse Ox 95 02/02/21 14:00 Intake & Output 02/01/21 02/02/21 02/02/21 18:59 06:59 18:59 Intake Total 5723.939 3366.159 760.915 Output Total 2920 2440 1425 Balance -1386.884 -855.841 -664.085 Weight 101.6 kg 101.5 kg Intake: IV 210 493 274 Furosemide 100 mg In 110 80 Sodium Chloride 0.9% 90 ml @ 10 MG/HR 10 mls/hr IV .Q10H [facility] Rx#: [id number] Heparin Sodium,Porcine 12 110 10 ,500 unit In Dextrose 5% in Water 500 ml @ Per Protocol IV DIRECTED [facility] Rx#:[id number] Pressure Bag 33 24 Sodium Chloride 0.9% 1, 210 240 160 000 ml @ 20 mls/hr IV . Q24H [facility] Rx#:[id number] Intake, IV Titration 1193.116 656.159 172.915 Amount Cefepime 2 gm In Sodium 50.0 Chloride 0.9% 100 ml @ 25 mls/hr IVPB Q12H [facility] Rx# :[id number] Furosemide 100 mg In 157 100 88.333 Sodium Chloride 0.9% 90 ml @ 10 MG/HR 10 mls/hr IV .Q10H [facility] Rx#: [id number] Heparin Sod,Pork in 0.45% 179.072 241.758 NaCl 25,000 unit In 0.45 % NaCl 1 250ml.bag @ 7.7 UNIT/KG/HR 9.57 mls/hr IV .Q24H [facility] Rx#:[id number] Vancomycin 1,750 mg In 501 Sodium Chloride 0.9% 500 ml 500 ml @ 167 mls/hr IVPB Q16H [facility] Rx#: [id number] propofoL 1,000 mg In 306.044 314.401 84.582 Empty Bag 1 bag @ Titrate IV .Q0M [facility] Rx#: [id number] Tube Feeding 70 270 254 Other 60 165 60 Output: Urine 2920 2440 1425 Other: Voiding Method Indwelling Catheter Indwelling Catheter Indwelling Catheter ABP, PAP, CO, CI - Last Documented Arterial Blood Pressure 102/70 - Labs CBC & Chem 7: 02/02/21 04:05 02/02/21 13:13 Labs: Abnormal Lab Results - Last 24 Hours (Table) 02/01/21 02/01/21 02/01/21 Range/Units 15:48 15:48 16:23 WBC (3.8-10.6) k/uL RBC (4.30-5.90) m/uL Hgb (13.0-17.5) gm/dL Hct (39.0-53.0) % Neutrophils # (1.3-7.7) k/uL Monocytes # (0-1.0) k/uL APTT 52.5 H (22.0-30.0) sec Fibrinogen 598 H (200-500) mg/dL ABG pH (7.35-7.45) ABG pCO2 (35-45) mmHg ABG pO2 (83-108) mmHg ABG Total CO2 (19-24) mmol/L Potassium (3.5-5.1) mmol/L BUN (9-20) mg/dL Creatinine (0.66-1.25) mg/dL Glucose (74-99) mg/dL POC Glucose (mg/dL) 209 H (75-99) mg/dL Lactate Dehydrogenase 6020 H (313-618) U/L 02/01/21 02/01/21 02/02/21 Range/Units 20:51 23:09 02:14 WBC (3.8-10.6) k/uL RBC (4.30-5.90) m/uL Hgb (13.0-17.5) gm/dL Hct (39.0-53.0) % Neutrophils # (1.3-7.7) k/uL Monocytes # (0-1.0) k/uL APTT 46.2 H (22.0-30.0) sec Fibrinogen 653 H (200-500) mg/dL ABG pH (7.35-7.45) ABG pCO2 (35-45) mmHg ABG pO2 (83-108) mmHg ABG Total CO2 (19-24) mmol/L Potassium (3.5-5.1) mmol/L BUN (9-20) mg/dL Creatinine (0.66-1.25) mg/dL Glucose (74-99) mg/dL POC Glucose (mg/dL) 159 H 179 H (75-99) mg/dL Lactate Dehydrogenase (313-618) U/L 02/02/21 02/02/21 02/02/21 Range/Units 04:05 04:05 04:07 WBC 16.9 H (3.8-10.6) k/uL RBC 4.07 L (4.30-5.90) m/uL Hgb 12.4 L (13.0-17.5) gm/dL Hct 37.5 L (39.0-53.0) % Neutrophils # 13.2 H (1.3-7.7) k/uL Monocytes # 1.1 H (0-1.0) k/uL APTT (22.0-30.0) sec Fibrinogen (200-500) mg/dL ABG pH (7.35-7.45) ABG pCO2 (35-45) mmHg ABG pO2 (83-108) mmHg ABG Total CO2 (19-24) mmol/L Potassium 2.9 L (3.5-5.1) mmol/L BUN 39 H (9-20) mg/dL Creatinine 1.61 H (0.66-1.25) mg/dL Glucose 181 H (74-99) mg/dL POC Glucose (mg/dL) 185 H (75-99) mg/dL Lactate Dehydrogenase 5432 H (313-618) U/L 02/02/21 02/02/21 02/02/21 Range/Units 05:50 07:31 09:01 WBC (3.8-10.6) k/uL RBC (4.30-5.90) m/uL Hgb (13.0-17.5) gm/dL Hct (39.0-53.0) % Neutrophils # (1.3-7.7) k/uL Monocytes # (0-1.0) k/uL APTT (22.0-30.0) sec Fibrinogen (200-500) mg/dL ABG pH 7.51 H (7.35-7.45) ABG pCO2 32 L (35-45) mmHg ABG pO2 78 L (83-108) mmHg ABG Total CO2 26 H (19-24) mmol/L Potassium (3.5-5.1) mmol/L BUN (9-20) mg/dL Creatinine (0.66-1.25) mg/dL Glucose (74-99) mg/dL POC Glucose (mg/dL) 203 H 182 H (75-99) mg/dL Lactate Dehydrogenase (313-618) U/L 02/02/21 Range/Units 12:22 WBC (3.8-10.6) k/uL RBC (4.30-5.90) m/uL Hgb (13.0-17.5) gm/dL Hct (39.0-53.0) % Neutrophils # (1.3-7.7) k/uL Monocytes # (0-1.0) k/uL APTT (22.0-30.0) sec Fibrinogen (200-500) mg/dL ABG pH (7.35-7.45) ABG pCO2 (35-45) mmHg ABG pO2 (83-108) mmHg ABG Total CO2 (19-24) mmol/L Potassium (3.5-5.1) mmol/L BUN (9-20) mg/dL Creatinine (0.66-1.25) mg/dL Glucose (74-99) mg/dL POC Glucose (mg/dL) 189 H (75-99) mg/dL Lactate Dehydrogenase (313-618) U/L Microbiology - Last 24 Hours (Table) 02/01/21 06:30 Urine Culture - Final Urine,Catheterized 02/01/21 06:36 Blood Culture - Preliminary Blood No Growth after 24 hours
[2021-02-02] MEDS ORDERED: POTASSIUM BICARBONATE/CIT AC 20 MEQ TABLET.EFF NG-TUBE SCH (15:00)
[2021-02-02 16:16] LABS: Glucose,Whole Blood 205 mg/dL (75-99)
[2021-02-02] MEDS ORDERED: hydrALAZINE HCL 20 MG/ML 1 ML VIAL IVP PRN (17:31)
[2021-02-02] MEDS: hydrALAZINE HCL 10 MG TAB PO SCH (17:56)
[2021-02-02] MEDS: HEPARIN SODIUM,PORCINE 12,500 UNIT in DEXTROSE 5% IN WATER 500 ML IV SCH ×2 (17:57)
[2021-02-02 19:42] LABS: Glucose,Whole Blood 233 mg/dL (75-99)
[2021-02-02] MEDS: SODIUM CHLORIDE 0.9% 1,000 ML IV SCH (20:47)
[2021-02-02] MEDS ORDERED: INSULIN DETEMIR (LEVEMIR) 100 UNIT/ML SYR SQ SCH (21:00)
--- NOTE | 2021-02-02 21:16 | P.PN ---
Subjective HISTORY OF PRESENTING ILLNESS This is a pleasant 70-year-old male past medical history significant for hypertension, diabetes mellitus, dyslipidemia, chronic neck pain dependence, depression and chronic nicotine dependence. 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 He presented to the hospital with symptoms of shortness of breath. He states it seemed to have started last night however, progressively worse this morning. When he woke up he was having difficulty breathing. He denies ever having had symptoms of chest discomfort. He has no dizziness, palpitations, nausea, vomiting or diaphoresis. He was hector in color and clammy. He said he traveled to [facility] this past weekend and noticed he was easily fatigued which is not normal for him. EKG reveals ST elevation anterolateral leads. This x-ray revealed early congestive heart failure. Laboratory data reviewed, WBC 18, hemoglobin 14.1, platelets 271, sodium 137, potassium 4.1, creatinine 1.0, t roponin 1.89 and magnesium 2.4. Current daily cardiac medications include losartan 100 mg daily, pravastatin 40 mg daily, amlodipine 10 mg daily and hydralazine 50 mg twice a day. 02/01/2021 Pt is s/p left heart catheterization with PCI to the LAD and impella placement. Cath revealed RCA sub-totally occluded likely chronic in the mid-portion, circumflex subtotally occluded in the midportion, LAD with a critical lesion in the proximal portion 99% which seems to be thrombotic, mid LAD has another hazy lesion in the range of 30-40%. He underwent successful PCI of the LAD then developed placement. LVEDP was greater than 50 mmHg. Blood pressure is 96/73 heart rate 62 with a temperature of 100.8F. Laboratory data reviewed, WBC 14.6, hemoglobin 13.2, platelets 232, fibrinogen 556, sodium 134, potassium 4, creatinine 1.55, magnesium 2.1 and repeat troponin 149. Echocardiogram obtained revealed severely impaired LV systolic function with ejection fraction 25-30%, apical anterior, apical lateral, apical inferior, apical septal LV wall motion hypokinesia. 02/02 Patient seen and examined. Patient remains on Impella still at P8. He remains sedated on ventilator. Impella LV readings 90's over 0 to low -5. Continues good urine output. Trend and 1.6 today. MAP's 80s to 85's. Mild oozing around right femoral site. No leg ischemia with doppler able pulses. PHYSICAL EXAMINATION CONSTITUTIONAL: Appears comfortable, sedated on vent HEENT: Head is normocephalic. Pupils are equal, round. Sclerae anicteric. Mucous membranes of the mouth are moist. No JVD. No carotid bruit. CHEST EXAMINATION: Bibasilar rales, no rhonchi or wheezes. No chest wall tenderness is noted on palpation or with deep breathing. HEART EXAMINATION: Regular rate and rhythm. S1, S2 heard. No murmurs, gallops or rub. EXTREMITIES: 1+ peripheral pulses, no lower extremity edema and no calf tenderness. ASSESSMENT Acute anterior lateral ST-elevated myocardial infarction CAD multivessel with 99% circumflex, 100% LAD stenosis. Diabetes mellitus Hypertension Dyslipidemia Chronic nicotine dependence Obesity, BMI 37 PLAN Continue to optimize heart failure regimen as able. Continue lasix infusion. Add hydralazine/isordil for afterload reduction with mildly elevated MAP's 80- 85's. Goal MAP 65-70. Hopeful DC of Impella Thursday or Thursday. Discussed with sister on the phone and sister understanding of guarded prognosis. May consider staged PCI of circumflex or SPECIAL DELIVERY WORKER of RCA however risks must be weighed against ARCELIA, unknown viability. Continue to assess. Further recommendations to follow based on clinical course. Objective - Vital Signs Vital signs: Vital Signs Temp 97.9 F 02/02/21 20:00 Pulse 74 02/02/21 20:00 Resp 30 H 02/02/21 20:00 BP 96/69 02/02/21 20:00 Pulse Ox 95 02/02/21 20:00 Intake & Output 02/02/21 02/02/21 02/03/21 06:59 18:59 06:59 Intake Total 1721.438 3063.915 266.867 Output Total 2440 2000 300 Balance -855.841 -701.085 -33.133 Weight 101.5 kg Intake: IV 493 406 66.7 Furosemide 100 mg In 110 120 10 Sodium Chloride 0.9% 90 ml @ 10 MG/HR 10 mls/hr IV .Q10H [facility] Rx#: [id number] Heparin Sodium,Porcine 12 110 10 10.7 ,500 unit In Dextrose 5% in Water 500 ml @ Per Protocol IV DIRECTED [facility] Rx#:[id number] Pressure Bag 33 36 6 Sodium Chloride 0.9% 1, 240 240 40 000 ml @ 20 mls/hr IV . Q24H [facility] Rx#:[id number] Intake, IV Titration 656.159 372.915 82.167 Amount Furosemide 100 mg In 100 88.333 82.167 Sodium Chloride 0.9% 90 ml @ 10 MG/HR 10 mls/hr IV .Q10H [facility] Rx#: [id number] Heparin Sod,Pork in 0.45% 241.758 NaCl 25,000 unit In 0.45 % NaCl 1 250ml.bag @ 7.7 UNIT/KG/HR 9.57 mls/hr IV .Q24H [facility] Rx#:[id number] propofoL 1,000 mg In 314.401 284.582 Empty Bag 1 bag @ Titrate IV .Q0M [facility] Rx#: [id number] Tube Feeding 270 430 88 Other 165 90 30 Output: Urine 2440 2000 300 Other: Voiding Method Indwelling Catheter Indwelling Catheter ABP, PAP, CO, CI - Last Documented Arterial Blood Pressure 80/59 - Labs CBC & Chem 7: 02/02/21 04:05 02/02/21 13:13 Labs: Abnormal Lab Results - Last 24 Hours (Table) 02/01/21 02/02/21 02/02/21 Range/Units 23:09 02:14 04:05 WBC 16.9 H (3.8-10.6) k/uL RBC 4.07 L (4.30-5.90) m/uL Hgb 12.4 L (13.0-17.5) gm/dL Hct 37.5 L (39.0-53.0) % Neutrophils # 13.2 H (1.3-7.7) k/uL Monocytes # 1.1 H (0-1.0) k/uL APTT 46.2 H (22.0-30.0) sec Fibrinogen 653 H (200-500) mg/dL ABG pH (7.35-7.45) ABG pCO2 (35-45) mmHg ABG pO2 (83-108) mmHg ABG Total CO2 (19-24) mmol/L Potassium (3.5-5.1) mmol/L BUN (9-20) mg/dL Creatinine (0.66-1.25) mg/dL Glucose (74-99) mg/dL POC Glucose (mg/dL) 179 H (75-99) mg/dL Lactate Dehydrogenase (313-618) U/L 02/02/21 02/02/21 02/02/21 Range/Units 04:05 04:07 05:50 WBC (3.8-10.6) k/uL RBC (4.30-5.90) m/uL Hgb (13.0-17.5) gm/dL Hct (39.0-53.0) % Neutrophils # (1.3-7.7) k/uL Monocytes # (0-1.0) k/uL APTT (22.0-30.0) sec Fibrinogen (200-500) mg/dL ABG pH 7.51 H (7.35-7.45) ABG pCO2 32 L (35-45) mmHg ABG pO2 78 L (83-108) mmHg ABG Total CO2 26 H (19-24) mmol/L Potassium 2.9 L (3.5-5.1) mmol/L BUN 39 H (9-20) mg/dL Creatinine 1.61 H (0.66-1.25) mg/dL Glucose 181 H (74-99) mg/dL POC Glucose (mg/dL) 185 H (75-99) mg/dL Lactate Dehydrogenase 5432 H (313-618) U/L 02/02/21 02/02/21 02/02/21 Range/Units 07:31 09:01 12:22 WBC (3.8-10.6) k/uL RBC (4.30-5.90) m/uL Hgb (13.0-17.5) gm/dL Hct (39.0-53.0) % Neutrophils # (1.3-7.7) k/uL Monocytes # (0-1.0) k/uL APTT (22.0-30.0) sec Fibrinogen (200-500) mg/dL ABG pH (7.35-7.45) ABG pCO2 (35-45) mmHg ABG pO2 (83-108) mmHg ABG Total CO2 (19-24) mmol/L Potassium (3.5-5.1) mmol/L BUN (9-20) mg/dL Creatinine (0.66-1.25) mg/dL Glucose (74-99) mg/dL POC Glucose (mg/dL) 203 H 182 H 189 H (75-99) mg/dL Lactate Dehydrogenase (313-618) U/L 02/02/21 02/02/21 02/02/21 Range/Units 13:13 16:15 19:41 WBC (3.8-10.6) k/uL RBC (4.30-5.90) m/uL Hgb (13.0-17.5) gm/dL Hct (39.0-53.0) % Neutrophils # (1.3-7.7) k/uL Monocytes # (0-1.0) k/uL APTT (22.0-30.0) sec Fibrinogen (200-500) mg/dL ABG pH (7.35-7.45) ABG pCO2 (35-45) mmHg ABG pO2 (83-108) mmHg ABG Total CO2 (19-24) mmol/L Potassium (3.5-5.1) mmol/L BUN (9-20) mg/dL Creatinine (0.66-1.25) mg/dL Glucose (74-99) mg/dL POC Glucose (mg/dL) 205 H 233 H (75-99) mg/dL Lactate Dehydrogenase 5595 H (313-618) U/L Microbiology - Last 24 Hours (Table) 02/01/21 06:30 Urine Culture - Final Urine,Catheterized 02/01/21 06:36 Blood Culture - Preliminary Blood No Growth after 24 hours
[2021-02-03 00:05] LABS: Potassium 3.7 mmol/L (3.5-5.1)
[2021-02-03 00:05] LABS: Glucose,Whole Blood 232 mg/dL (75-99)
[2021-02-03] MEDS: hydrALAZINE HCL 10 MG TAB PO SCH ×4 (00:46→18:48)
[2021-02-03] MEDS: INSULIN ASPART (NovoLOG) 100 UNIT/ML VIAL SQ SCH ×4 (00:46→12:30)
[2021-02-03] MEDS: POTASSIUM CHLORIDE 20 MEQ in WATER FOR INJECTION 1 100ML.BAG IVPB SCH ×6 (00:47→10:43)
[2021-02-03 03:52] LABS: Glucose,Whole Blood 225 mg/dL (75-99)
[2021-02-03 05:37] LABS: ABG HCO3 27 mmol/L (21-25); ABG Oxygen Saturation 96.3 % (94-97); ABG PCO2 33 mmHg (35-45); ABG PH 7.52 (7.35-7.45); ABG PO2 79 mmHg (83-108); ABG TCO2 28 mmol/L (19-24); Allen Test Performed? Yes
[2021-02-03 05:53] LABS: Basophils # (A) 0.1 k/uL (0-0.2); Basophils % (A) 0 %; Eosinophils # (A) 0.1 k/uL (0-0.7); Eosinophils % (A) 1 %; HCT 33.6 % (39.0-53.0); HGB 11.7 gm/dL (13.0-17.5); Lymphocytes # (A) 2.1 k/uL (1.0-4.8); Lymphocytes % (A) 12 %; MCH 31.8 pg (25.0-35.0); MCV 90.9 fL (80.0-100.0); Mean Platelet Volume 10.2; Monocytes # (A) 1.5 k/uL (0-1.0); Monocytes % (A) 8 %; Neutrophils # (A) 13.4 k/uL (1.3-7.7); Neutrophils % (A) 77 %; Platelet Count 147 k/uL (150-450); RBC 3.69 m/uL (4.30-5.90); RDW 13.9 % (11.5-15.5); WBC 17.5 k/uL (3.8-10.6)
[2021-02-03 06:05] LABS: Prothrombin Time 10.5 sec (9.0-12.0)
[2021-02-03 06:09] LABS: Magnesium 2.5 mg/dL (1.6-2.3); Potassium 3.7 mmol/L (3.5-5.1)
[2021-02-03] MEDS: CEFEPIME 2 GM in SODIUM CHLORIDE 0.9% 100 ML IVPB SCH ×2 (06:41→20:18)
[2021-02-03] MEDS: POTASSIUM BICARBONATE/CIT AC 20 MEQ TABLET.EFF PO SCH ×3 (06:41→10:45)
--- NOTE | 2021-02-03 07:10 | XR ---
EXAMINATION TYPE: XR chest 1V portable DATE OF EXAM: 02/03/2021 COMPARISON: 02/02/2021 HISTORY: Shortness of breath TECHNIQUE: Single frontal view of the chest is obtained. FINDINGS: ET and NG tube stable. There is left lower lobe infiltrate and small effusion. Tiny right effusion. Hilar infiltrate and increased lung markings are noted. No pneumothorax. Heart enlarged. IMPRESSION: Stable x-ray correlate for CHF versus bilateral pneumonia with pleural effusion.
[2021-02-03 07:28] LABS: Glucose,Whole Blood 247 mg/dL (75-99)
[2021-02-03] MEDS: LEVOTHYROXINE IVP 100 MCG/5 ML VIAL IV SCH (08:08)
[2021-02-03] MEDS: ASPIRIN 81 MG PO SCH (08:14)
[2021-02-03] MEDS: TICAGRELOR 90 MG TAB PO SCH ×2 (08:14→20:18)
[2021-02-03] MEDS: ATORVASTATIN 80 MG TAB PO SCH (08:14)
[2021-02-03] MEDS: CHLORHEXIDINE GLUCONATE 15 ML CUP MUCOUS MEM SCH ×2 (08:14→20:18)
[2021-02-03] MEDS: METOPROLOL TARTRATE 12.5 MG TAB PO SCH ×2 (08:20→20:18)
--- NOTE | 2021-02-03 10:57 | P.PN ---
Subjective HISTORY OF PRESENTING ILLNESS This is a pleasant 70-year-old male past medical history significant for hypertension, diabetes mellitus, dyslipidemia, chronic neck pain dependence, depression and chronic nicotine dependence. 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 He presented to the hospital with symptoms of shortness of breath. He states it seemed to have started last night however, progressively worse this morning. When he woke up he was having difficulty breathing. He denies ever having had symptoms of chest discomfort. He has no dizziness, palpitations, nausea, vomiting or diaphoresis. He was hector in color and clammy. He said he traveled to [facility] this past weekend and noticed he was easily fatigued which is not normal for him. EKG reveals ST elevation anterolateral leads. This x-ray revealed early congestive heart failure. Laboratory data reviewed, WBC 18, hemoglobin 14.1, platelets 271, sodium 137, potassium 4.1, creatinine 1.0, t roponin 1.89 and magnesium 2.4. Current daily cardiac medications include losartan 100 mg daily, pravastatin 40 mg daily, amlodipine 10 mg daily and hydralazine 50 mg twice a day. 02/01/2021 Pt is s/p left heart catheterization with PCI to the LAD and impella placement. Cath revealed RCA sub-totally occluded likely chronic in the mid-portion, circumflex subtotally occluded in the midportion, LAD with a critical lesion in the proximal portion 99% which seems to be thrombotic, mid LAD has another hazy lesion in the range of 30-40%. He underwent successful PCI of the LAD then developed placement. LVEDP was greater than 50 mmHg. Blood pressure is 96/73 heart rate 62 with a temperature of 100.8F. Laboratory data reviewed, WBC 14.6, hemoglobin 13.2, platelets 232, fibrinogen 556, sodium 134, potassium 4, creatinine 1.55, magnesium 2.1 and repeat troponin 149. Echocardiogram obtained revealed severely impaired LV systolic function with ejection fraction 25-30%, apical anterior, apical lateral, apical inferior, apical septal LV wall motion hypokinesia. 02/02 Patient seen and examined. Patient remains on Impella still at P8. He remains sedated on ventilator. Impella LV readings 90's over 0 to low -5. Continues good urine output. Trend and 1.6 today. MAP's 80s to 85's. Mild oozing around right femoral site. No leg ischemia with doppler able pulses. 02/03 Patient seen and examined. Patient remains intubated and sedated. Deep was decreased to 5 with FiO2 of 45. Impella in place with mild oozing of right femoral site however does not appear significant. No leg ischemia. Was started on hydralazine and isordil yesterday with improved MAP low 70's. Cr mildly improved to 1.58 today. PHYSICAL EXAMINATION CONSTITUTIONAL: Appears comfortable, sedated on vent HEENT: Head is normocephalic. Pupils are equal, round. Sclerae anicteric. Mucous membranes of the mouth are moist. No JVD. No carotid bruit. CHEST EXAMINATION: Bibasilar rales, no rhonchi or wheezes. No chest wall tenderness is noted on palpation or with deep breathing. HEART EXAMINATION: Regular rate and rhythm. S1, S2 heard. No murmurs, gallops or rub. EXTREMITIES: 1+ peripheral pulses, no lower extremity edema and no calf tenderness. ASSESSMENT Acute anterior lateral ST-elevated myocardial infarction CAD multivessel with 99% circumflex, 100% LAD stenosis. Diabetes mellitus Hypertension Dyslipidemia Chronic nicotine dependence Obesity, BMI 37 Cardiogrenic shock, s/p Impella placement PLAN Continue to optimize heart failure regimen as able. We will transition from Lasix drip to Lasix 40mg IV bid. Continue hydralazine/isordil for afterload reduction with goal MAP 65-70. Hopeful DC of Impella Thursday. May consider staged PCI of circumflex or NOTCHED BLADE LOADER of RCA however risks must be weighed against ARCELIA, unknown viability. Continue to assess. Further recommendations to follow based on clinical course. Objective - Vital Signs Vital signs: Vital Signs Temp 98.3 F 02/03/21 08:30 Pulse 76 02/03/21 09:00 Resp 30 H 02/03/21 09:00 BP 106/78 02/03/21 09:00 Pulse Ox 96 02/03/21 09:00 Intake & Output 02/02/21 02/03/21 02/03/21 18:59 06:59 18:59 Intake Total 3304.637 7175.411 395.0 Output Total 1999 4950 735 Balance -701.085 189.411 -340.0 Weight 107 kg Intake: IV 406 709.7 64 Furosemide 100 mg In 120 10 Sodium Chloride 0.9% 90 ml @ 10 MG/HR 10 mls/hr IV .Q10H [facility] Rx#: [id number] Heparin Sodium,Porcine 12 10 114.7 ,500 unit In Dextrose 5% in Water 500 ml @ Per Protocol IV DIRECTED [facility] Rx#:[id number] Potassium Chloride 20 meq 300 In Water For Injection 1 100ml.bag @ 50 mls/hr IVPB Q2H [facility] Rx#: [id number] Pressure Bag 36 45 24 Sodium Chloride 0.9% 1, 240 240 40 000 ml @ 20 mls/hr IV . Q24H [facility] Rx#:[id number] Intake, IV Titration 372.915 566.711 125.0 Amount Cefepime 2 gm In Sodium 25.0 Chloride 0.9% 100 ml @ 25 mls/hr IVPB Q12H [facility] Rx# :[id number] Furosemide 100 mg In 88.333 82.167 Sodium Chloride 0.9% 90 ml @ 10 MG/HR 10 mls/hr IV .Q10H [facility] Rx#: [id number] Heparin Sod,Pork in 0.45% 250 NaCl 25,000 unit In 0.45 % NaCl 1 250ml.bag @ 7.7 UNIT/KG/HR 9.57 mls/hr IV .Q24H [facility] Rx#:[id number] Potassium Chloride 20 meq 100 In Water For Injection 1 100ml.bag @ 50 mls/hr IVPB Q2H [facility] Rx#: [id number] propofoL 1,000 mg In 284.582 234.544 Empty Bag 1 bag @ Titrate IV .Q0M [facility] Rx#: [id number] Tube Feeding 430 528 176 Other 90 255 30 Output: Urine 1999 1870 735 Other: Voiding Method Indwelling Catheter Indwelling Catheter ABP, PAP, CO, CI - Last Documented Arterial Blood Pressure 103/70 - Labs CBC & Chem 7: 02/03/21 05:40 02/03/21 05:40 Labs: Abnormal Lab Results - Last 24 Hours (Table) 02/02/21 02/02/21 02/02/21 Range/Units 12:22 13:13 16:15 WBC (3.8-10.6) k/uL RBC (4.30-5.90) m/uL Hgb (13.0-17.5) gm/dL Hct (39.0-53.0) % Plt Count (150-450) k/uL Neutrophils # (1.3-7.7) k/uL Monocytes # (0-1.0) k/uL APTT (22.0-30.0) sec Fibrinogen (200-500) mg/dL ABG pH (7.35-7.45) ABG pCO2 (35-45) mmHg ABG pO2 (83-108) mmHg ABG HCO3 (21-25) mmol/L ABG Total CO2 (19-24) mmol/L BUN (9-20) mg/dL Creatinine (0.66-1.25) mg/dL Glucose (74-99) mg/dL POC Glucose (mg/dL) 189 H 205 H (75-99) mg/dL Magnesium (1.6-2.3) mg/dL Lactate Dehydrogenase 5595 H (313-618) U/L 02/02/21 02/02/21 02/02/21 Range/Units 19:41 22:40 22:40 WBC (3.8-10.6) k/uL RBC (4.30-5.90) m/uL Hgb (13.0-17.5) gm/dL Hct (39.0-53.0) % Plt Count (150-450) k/uL Neutrophils # (1.3-7.7) k/uL Monocytes # (0-1.0) k/uL APTT (22.0-30.0) sec Fibrinogen 799 H (200-500) mg/dL ABG pH (7.35-7.45) ABG pCO2 (35-45) mmHg ABG pO2 (83-108) mmHg ABG HCO3 (21-25) mmol/L ABG Total CO2 (19-24) mmol/L BUN (9-20) mg/dL Creatinine (0.66-1.25) mg/dL Glucose (74-99) mg/dL POC Glucose (mg/dL) 233 H (75-99) mg/dL Magnesium (1.6-2.3) mg/dL Lactate Dehydrogenase 5600 H (313-618) U/L 02/03/21 02/03/21 02/03/21 Range/Units 00:03 03:49 05:35 WBC (3.8-10.6) k/uL RBC (4.30-5.90) m/uL Hgb (13.0-17.5) gm/dL Hct (39.0-53.0) % Plt Count (150-450) k/uL Neutrophils # (1.3-7.7) k/uL Monocytes # (0-1.0) k/uL APTT (22.0-30.0) sec Fibrinogen (200-500) mg/dL ABG pH 7.52 H (7.35-7.45) ABG pCO2 33 L (35-45) mmHg ABG pO2 79 L (83-108) mmHg ABG HCO3 27 H (21-25) mmol/L ABG Total CO2 28 H (19-24) mmol/L BUN (9-20) mg/dL Creatinine (0.66-1.25) mg/dL Glucose (74-99) mg/dL POC Glucose (mg/dL) 232 H 225 H (75-99) mg/dL Magnesium (1.6-2.3) mg/dL Lactate Dehydrogenase (313-618) U/L 02/03/21 02/03/21 02/03/21 Range/Units 05:40 05:40 05:40 WBC 17.5 H (3.8-10.6) k/uL RBC 3.69 L (4.30-5.90) m/uL Hgb 11.7 L (13.0-17.5) gm/dL Hct 33.6 L (39.0-53.0) % Plt Count 147 L (150-450) k/uL Neutrophils # 13.4 H (1.3-7.7) k/uL Monocytes # 1.5 H (0-1.0) k/uL APTT (22.0-30.0) sec Fibrinogen 703 H (200-500) mg/dL ABG pH (7.35-7.45) ABG pCO2 (35-45) mmHg ABG pO2 (83-108) mmHg ABG HCO3 (21-25) mmol/L ABG Total CO2 (19-24) mmol/L BUN 50 H (9-20) mg/dL Creatinine 1.58 H (0.66-1.25) mg/dL Glucose 234 H (74-99) mg/dL POC Glucose (mg/dL) (75-99) mg/dL Magnesium 2.5 H (1.6-2.3) mg/dL Lactate Dehydrogenase 5863 H (313-618) U/L 02/03/21 02/03/21 Range/Units 07:26 07:40 WBC (3.8-10.6) k/uL RBC (4.30-5.90) m/uL Hgb (13.0-17.5) gm/dL Hct (39.0-53.0) % Plt Count (150-450) k/uL Neutrophils # (1.3-7.7) k/uL Monocytes # (0-1.0) k/uL APTT 46.1 H (22.0-30.0) sec Fibrinogen (200-500) mg/dL ABG pH (7.35-7.45) ABG pCO2 (35-45) mmHg ABG pO2 (83-108) mmHg ABG HCO3 (21-25) mmol/L ABG Total CO2 (19-24) mmol/L BUN (9-20) mg/dL Creatinine (0.66-1.25) mg/dL Glucose (74-99) mg/dL POC Glucose (mg/dL) 247 H (75-99) mg/dL Magnesium (1.6-2.3) mg/dL Lactate Dehydrogenase (313-618) U/L Microbiology - Last 24 Hours (Table) 02/02/21 20:50 Sputum Culture - Preliminary Sputum 02/01/21 06:36 Blood Culture - Preliminary Blood No Growth after 48 hours 02/01/21 06:30 Urine Culture - Final Urine,Catheterized
[2021-02-03] MEDS: FUROSEMIDE 10 MG/ML 4 ML VIAL IV SCH ×2 (12:14→20:18)
[2021-02-03 12:25] LABS: Glucose,Whole Blood 251 mg/dL (75-99)
[2021-02-03] MEDS: HEPARIN SOD,PORK IN 0.45% NACL 25,000 UNIT in 0.45% NACL 1 250ML.BAG IV SCH (13:15)
--- NOTE | 2021-02-03 14:10 | P.PN ---
Subjective Progress Note Date: 02/03/21 Principal diagnosis: Cardiogenic shock and acute hypoxic respiratory failure secondary to cardiogenic shock This is a 70-year-old white male, with history of hypertension, diabetes, dyslipidemia, chronic neck pain, depression, chronic nicotine dependence, no previous history of documented coronary artery disease. Patient came into the hospital with symptoms of acute shortness of breath. Patient woke up this morning and he was complaining of shortness of breath, he had no dizziness no palpitation no nausea no vomiting or diaphoresis. However the patient was noted to be hector in color and clammy. EKG upon his initial presentation showed ST elevation in the anterolateral leads. Chest x-ray showed evidence of congestive heart failure. Troponin was 1.89. Patient was seen by cardiology and he was noted to have acute anterior lateral stress ST elevated myocardial infarction, hence the patient was taken straight to cardiac catheterization. While in the cardiac catheterization lab, patient underwent stenting and apparently during the cardiac catheterization patient went into full cardiogenic shock, patient was intubated and placed on mechanical ventilation, and an impella device was placed. The device was placed in the right groin through the femoral artery. Eboni duarte was transferred to the ICU on mechanical ventilation, and I was asked to see him on consultation. Patient was placed on tidal volume of 450, FiO2 of 100%, EPAP of 10, and assist control rate of 30. Chest x-ray showed evidence of pulmonary edema ABG showed a pO2 of 78 pCO2 of 51 pH of 7.23. Will increase to follow volume to 500 and will likely increase PEEP to 12. on 02/01/2021 patient seen in follow-up in the intensive care unit. He remains sedated, intubated on mechanical ventilator, with assist control mode of ventilation rate of 30, tidal vital was 500, FiO2 of 50% and PEEP of 12. This point his blood gases show pO2 of 117, pCO2 31, and pH of 7.43, and this was done on FiO2 of 50%, today's chest x-ray has been reviewed showing improving perihilar and basilar infiltrates. Hemodynamically patient remains on Impella device. He is on 0.9 normal saline at 20 ML per hour, his Diprivan and is at 35 mics per kilo per minute, and Lasix infusion at 10 mg per hour, his heparin i nfusion is at weight-based protocol. He is in negative fluid balance, -1009 mL over the last 24 hours. Today's labs show improvement of patient's white blood cell count down to 14.6, hemoglobin is 13.2, CMP showed sodium of 134, potassium is 4.0, chloride is 107, CO2 is 20, BUN of 30, creatinine is 1.55. Patient's second troponin increased to 149. The heart rhythm is sinus rhythm on the monitor with a rate of 68 BPM, not requiring any vasopressor support at this time, we added empiric antibiotics in the form of cefepime and vancomycin for empiric antibiotic coverage especially in view of elevated white count and multiple indwelling lines. patient was tested for COVID-19 via PCR test and was found to be negative. Patient continues on Lasix, and is producing urine output in the order of 250-400 mL per hour. Patient also remains on aspirin 81 mg and Brilinta. His echocardiogram showed severely impaired left acute systolic function with an EF of 25-30% On 02/02/2021, patient remains in the ICU, intubated and mechanically ventilated. Patient continues to have the left ventricular assist device in place. Remains on Lasix drip at 10 mg per hour remains on propofol at 45 mcg/kg/m, he is also on heparin and antiplatelet therapy/UL. He is on vital hp 30 mL per hour. His ventilator settings are assist control rate of 30 volume of 500 FiO2 45% PEEP is at 8. ABG showed a pO2 of 78 pCO2 of 32 pH of 7.51. Sugars are running a bit high, hence I recommended adding Levemir insulin 20 units daily. And continue Accu-Cheks. Cardiology is planning to keep the ventricular assist device for another day, and we will hold on plans to wean and exited the patient on to the impact has been removed. Labs were reviewed today, WBC count is 16.9 hemoglobin is 12.4. Potassium is low at 2.9 be corrected as per protocol. BUN is 39 and creatinine is 1.61, slightly worse compared to the last couple of days. LDH is over 5000. Patient is a negative balance about 3-1/2 L since he was admitted to the ICU, chest x-ray continues to show mild interstitial edema bilaterally. Patient was reevaluated today on 02/03/2021, remains in the ICU, intubated and mechanically ventilated. Remains on Lasix drip, propofol at 45 mcg/kg/m, Lasix 10 mg per hour heparin drip, he is also on vital Hp/enteral feeding. Patient remains on cefepime. His ventilator settings are assist control rate of 30 tidal volumes 500 FiO2 45% PEEP was 8 and I cut it down to 5. ABG showed a pO2 of 79 pCO2 of 33 pH of 7.5 to chest x-ray continues to show some mild pulmonary edema, and left lower lobe atelectasis, possibly a small left-sided pleural effusion. Patient had a negative balance of 2.5 L over the last 24 hours. Remains on impella at p8, minimal oozing at the right femoral site noted, not considered clinically significant. No evidence of any leg ischemia. Hydralazine was started yesterday to improve his mean arterial pressure to the low 70s. Creatinine is improving, it is down to 1.58 today. WBC count is 17.5 hemoglobin is 11.7. PTT is 46. Remains on heparin. LDH is elevated at 5863 Objective - Vital Signs Vital signs: Vital Signs Temp 100.0 F H 02/03/21 12:00 Pulse 71 02/03/21 13:00 Resp 30 H 02/03/21 13:00 BP 87/67 02/03/21 12:00 Pulse Ox 96 02/03/21 13:00 Intake & Output 02/02/21 02/03/21 02/03/21 18:59 06:59 18:59 Intake Total 0310.608 5315.411 975.969 Output Total 1999 1870 1235 Balance -701.085 189.411 -259.031 Weight 107 kg Intake: IV 406 709.7 142 Furosemide 100 mg In 120 10 Sodium Chloride 0.9% 90 ml @ 10 MG/HR 10 mls/hr IV .Q10H [facility] Rx#: [id number] Heparin Sodium,Porcine 12 10 114.7 ,500 unit In Dextrose 5% in Water 500 ml @ Per Protocol IV DIRECTED [facility] Rx#:[id number] Potassium Chloride 20 meq 300 In Water For Injection 1 100ml.bag @ 50 mls/hr IVPB Q2H [facility] Rx#: [id number] Pressure Bag 36 45 42 Sodium Chloride 0.9% 1, 240 240 100 000 ml @ 20 mls/hr IV . Q24H [facility] Rx#:[id number] Intake, IV Titration 372.915 566.711 465.969 Amount Cefepime 2 gm In Sodium 25.0 Chloride 0.9% 100 ml @ 25 mls/hr IVPB Q12H [facility] Rx# :[id number] Furosemide 100 mg In 88.333 82.167 Sodium Chloride 0.9% 90 ml @ 10 MG/HR 10 mls/hr IV .Q10H [facility] Rx#: [id number] Heparin Sod,Pork in 0.45% 250 240.969 NaCl 25,000 unit In 0.45 % NaCl 1 250ml.bag @ 7.7 UNIT/KG/HR 9.57 mls/hr IV .Q24H [facility] Rx#:[id number] Potassium Chloride 20 meq 100 In Water For Injection 1 100ml.bag @ 50 mls/hr IVPB Q2H [facility] Rx#: [id number] propofoL 1,000 mg In 284.582 234.544 100 Empty Bag 1 bag @ Titrate IV .Q0M [facility] Rx#: [id number] Tube Feeding 430 528 308 Other 90 255 60 Output: Urine 1999 1870 1235 Other: Voiding Method Indwelling Catheter Indwelling Catheter Indwelling Catheter ABP, PAP, CO, CI - Last Documented Arterial Blood Pressure 97/63 - Exam Physical Exam: Revealed a 70-year-old white male, morbidly obese, on mechanical ventilation, sedated, on propofol. Head: Atraumatic, normocephalic. Endotracheal tube is noted, no orogastric tube has been placed yet, however the endotracheal tube will be advanced based on chest x-ray findings today. At least to 2 cm down HEENT: Short obese neck [Neck is supple.] [No neck masses.] [No thyromegaly.] [No JVD.] Chest: [Symmetrical chest expansion, crackles and rhonchi noted bilaterally. Cardiac Exam: Distant S1 and S2, no S3 gallop was appreciated. Abdomen: [Morbidly obese, Soft, nontender, no megaly, no rebound, no guarding, normal bowel sounds.] Extremities: [No clubbing, 1+ bipedal edema, no cyanosis.] Diminished distal pulses bilaterally. Right groin, site of impella insertion was noted. Seems to be clean. Triple-lumen catheter noted in the left groin also seems to be clean. Neurological Exam: Could not assess, patient is sedated and paralyzed now. Psychiatric: Could not assess. Skin: No rashes. - Labs CBC & Chem 7: 02/03/21 05:40 02/03/21 05:40 Labs: Abnormal Lab Results - Last 24 Hours (Table) 02/02/21 02/02/21 02/02/21 Range/Units 13:13 16:15 19:41 WBC (3.8-10.6) k/uL RBC (4.30-5.90) m/uL Hgb (13.0-17.5) gm/dL Hct (39.0-53.0) % Plt Count (150-450) k/uL Neutrophils # (1.3-7.7) k/uL Monocytes # (0-1.0) k/uL APTT (22.0-30.0) sec Fibrinogen (200-500) mg/dL ABG pH (7.35-7.45) ABG pCO2 (35-45) mmHg ABG pO2 (83-108) mmHg ABG HCO3 (21-25) mmol/L ABG Total CO2 (19-24) mmol/L BUN (9-20) mg/dL Creatinine (0.66-1.25) mg/dL Glucose (74-99) mg/dL POC Glucose (mg/dL) 205 H 233 H (75-99) mg/dL Magnesium (1.6-2.3) mg/dL Lactate Dehydrogenase 5595 H (313-618) U/L 02/02/21 02/02/21 02/03/21 Range/Units 22:40 22:40 00:03 WBC (3.8-10.6) k/uL RBC (4.30-5.90) m/uL Hgb (13.0-17.5) gm/dL Hct (39.0-53.0) % Plt Count (150-450) k/uL Neutrophils # (1.3-7.7) k/uL Monocytes # (0-1.0) k/uL APTT (22.0-30.0) sec Fibrinogen 799 H (200-500) mg/dL ABG pH (7.35-7.45) ABG pCO2 (35-45) mmHg ABG pO2 (83-108) mmHg ABG HCO3 (21-25) mmol/L ABG Total CO2 (19-24) mmol/L BUN (9-20) mg/dL Creatinine (0.66-1.25) mg/dL Glucose (74-99) mg/dL POC Glucose (mg/dL) 232 H (75-99) mg/dL Magnesium (1.6-2.3) mg/dL Lactate Dehydrogenase 5600 H (313-618) U/L 02/03/21 02/03/21 02/03/21 Range/Units 03:49 05:35 05:40 WBC 17.5 H (3.8-10.6) k/uL RBC 3.69 L (4.30-5.90) m/uL Hgb 11.7 L (13.0-17.5) gm/dL Hct 33.6 L (39.0-53.0) % Plt Count 147 L (150-450) k/uL Neutrophils # 13.4 H (1.3-7.7) k/uL Monocytes # 1.5 H (0-1.0) k/uL APTT (22.0-30.0) sec Fibrinogen (200-500) mg/dL ABG pH 7.52 H (7.35-7.45) ABG pCO2 33 L (35-45) mmHg ABG pO2 79 L (83-108) mmHg ABG HCO3 27 H (21-25) mmol/L ABG Total CO2 28 H (19-24) mmol/L BUN (9-20) mg/dL Creatinine (0.66-1.25) mg/dL Glucose (74-99) mg/dL POC Glucose (mg/dL) 225 H (75-99) mg/dL Magnesium (1.6-2.3) mg/dL Lactate Dehydrogenase (313-618) U/L 02/03/21 02/03/21 02/03/21 Range/Units 05:40 05:40 07:26 WBC (3.8-10.6) k/uL RBC (4.30-5.90) m/uL Hgb (13.0-17.5) gm/dL Hct (39.0-53.0) % Plt Count (150-450) k/uL Neutrophils # (1.3-7.7) k/uL Monocytes # (0-1.0) k/uL APTT (22.0-30.0) sec Fibrinogen 703 H (200-500) mg/dL ABG pH (7.35-7.45) ABG pCO2 (35-45) mmHg ABG pO2 (83-108) mmHg ABG HCO3 (21-25) mmol/L ABG Total CO2 (19-24) mmol/L BUN 50 H (9-20) mg/dL Creatinine 1.58 H (0.66-1.25) mg/dL Glucose 234 H (74-99) mg/dL POC Glucose (mg/dL) 247 H (75-99) mg/dL Magnesium 2.5 H (1.6-2.3) mg/dL Lactate Dehydrogenase 5863 H (313-618) U/L 02/03/21 02/03/21 Range/Units 07:40 12:23 WBC (3.8-10.6) k/uL RBC (4.30-5.90) m/uL Hgb (13.0-17.5) gm/dL Hct (39.0-53.0) % Plt Count (150-450) k/uL Neutrophils # (1.3-7.7) k/uL Monocytes # (0-1.0) k/uL APTT 46.1 H (22.0-30.0) sec Fibrinogen (200-500) mg/dL ABG pH (7.35-7.45) ABG pCO2 (35-45) mmHg ABG pO2 (83-108) mmHg ABG HCO3 (21-25) mmol/L ABG Total CO2 (19-24) mmol/L BUN (9-20) mg/dL Creatinine (0.66-1.25) mg/dL Glucose (74-99) mg/dL POC Glucose (mg/dL) 251 H (75-99) mg/dL Magnesium (1.6-2.3) mg/dL Lactate Dehydrogenase (313-618) U/L Microbiology - Last 24 Hours (Table) 02/02/21 20:50 Sputum Culture - Preliminary Sputum 02/01/21 06:36 Blood Culture - Preliminary Blood No Growth after 48 hours 02/01/21 06:30 Urine Culture - Final Urine,Catheterized Assessment and Plan Assessment: Impression: Acute ST elevation myocardial infarction, status post stenting of LAD and placement of imPella device, patient was admitted on 01/31/2021 Cardiogenic shock while in the cardiac catheterization lab requiring intubation and mechanical ventilation and left ventricular assist device placement. Acute hypoxic respiratory failure secondary to pulmonary edema secondary to cardiogenic shock secondary to acute ST elevation RI. Morbid obesity, BMI of 37.2 Benign essential hypertension Dyslipidemia Tobacco dependence syndrome. History of depression Recommendation: Continue ventilatory support. Decrease PEEP down to 5 Continue left ventricular assist device Continue Lasix drip. Continue antibiotics empirically cultures have been negative so far. Continue to monitor renal profile daily Continue to monitor daily chest x-rays. Continue enteral feeding/nutrition support. Continue bronchodilators/DuoNeb. Continue heparin and dual antiplatelet therapy as per cardiology. We'll address weaning and possible extubation once the left ventricle assist device has been removed. Critical care time is over 30 minutes. We'll continue to follow. Time with Patient: Greater than 30
--- NOTE | 2021-02-03 14:11 | P.PN ---
Subjective Progress Note Date: 02/03/21 (Hyperglycemia, diabetes mellitus, start insulin drip. Per protocol.) Progress note date of service 02/03/21. Dictated by Dr. Celeste. Patient in the ICU room 260, On ventilation mechanical and intubated he had feeding tube, NG tube, arterial line, Banda catheter, and Impala. Lab: WBC 17.5, hemoglobin 11.7, hematocrit 33.6 and platelet count 147. He is fibrinogen 703 on heparin protocol, ABG His pH 7.5 to, pCO2 33, pO2 79, HCO3 27 total CO2 28, FiO2 45%. Chemistry: Sodium 138 potassium 3.7 chloride 105 carbon dioxide 27 BUN of 50 and creatinine 1.58 with the estimated glomerular filtration rate for non- 44. Magnesium 2.5, LDH is 5863, PT 10.5 INR 1 and PTT 46.1 on heparin. Calcium was 9 magnesium 2.5. Patient seen and examined, on the ventilator, sedated. HEENT was negative, neck was supple. Chest is clear with the endotracheal tube and ventilated chest and sedated. Heart supported with Impala for the left ventricle. Still hypotensive with normal heart rate but compensated. Renal he had a Banda catheter with I no with the underlying prerenal acute kidney injury secondary to drop HIS ejection fraction of the heart from the 60 to 2530. Abdomen obese protuberant. Positive bowel sounds with the NG tube and feeding tube Extremities no edema. And positive pulses however is decreased With the decreased ejection fraction. Neurologically patient sedated with the DIPrivan Assessment: Still patient and critical stage. Hyperglycemia diabetes mellitus not well controlled we'll start him on the heparin drip until patient able to eat and will be valid CBG. With the current episode of blood glucose not appear to be accurate. Leukocytosis with the associated antibiotic with the possible underlying good response from the bone Hunt and the chest x-ray stable. Currently on cefepime 2 g every 12 hours. Plan: Continue the current treatment, monitor, future weaning of ventilator her critical and pulmonary. Controlled diabetes mellitus with the IV insulin drip protocol. Objective - Vital Signs Vital signs: Vital Signs Temp 100.0 F H 02/03/21 12:00 Pulse 71 02/03/21 13:00 Resp 30 H 02/03/21 13:00 BP 87/67 02/03/21 12:00 Pulse Ox 96 02/03/21 13:00 Intake & Output 02/02/21 02/03/21 02/03/21 18:59 06:59 18:59 Intake Total 7148.257 7228.411 975.969 Output Total 19990 1235 Balance -701.085 189.411 -259.031 Weight 107 kg Intake: IV 406 709.7 142 Furosemide 100 mg In 120 10 Sodium Chloride 0.9% 90 ml @ 10 MG/HR 10 mls/hr IV .Q10H [facility] Rx#: [id number] Heparin Sodium,Porcine 12 10 114.7 ,500 unit In Dextrose 5% in Water 500 ml @ Per Protocol IV DIRECTED [facility] Rx#:[id number] Potassium Chloride 20 meq 300 In Water For Injection 1 100ml.bag @ 50 mls/hr IVPB Q2H [facility] Rx#: [id number] Pressure Bag 36 45 42 Sodium Chloride 0.9% 1, 240 240 100 000 ml @ 20 mls/hr IV . Q24H [facility] Rx#:[id number] Intake, IV Titration 372.915 566.711 465.969 Amount Cefepime 2 gm In Sodium 25.0 Chloride 0.9% 100 ml @ 25 mls/hr IVPB Q12H [facility] Rx# :[id number] Furosemide 100 mg In 88.333 82.167 Sodium Chloride 0.9% 90 ml @ 10 MG/HR 10 mls/hr IV .Q10H [facility] Rx#: [id number] Heparin Sod,Pork in 0.45% 250 240.969 NaCl 25,000 unit In 0.45 % NaCl 1 250ml.bag @ 7.7 UNIT/KG/HR 9.57 mls/hr IV .Q24H [facility] Rx#:[id number] Potassium Chloride 20 meq 100 In Water For Injection 1 100ml.bag @ 50 mls/hr IVPB Q2H [facility] Rx#: [id number] propofoL 1,000 mg In 284.582 234.544 100 Empty Bag 1 bag @ Titrate IV .Q0M [facility] Rx#: [id number] Tube Feeding 430 528 308 Other 90 255 60 Output: Urine 1999 1870 1235 Other: Voiding Method Indwelling Catheter Indwelling Catheter Indwelling Catheter ABP, PAP, CO, CI - Last Documented Arterial Blood Pressure 97/63 - Labs CBC & Chem 7: 02/03/21 05:40 02/03/21 05:40 Labs: Abnormal Lab Results - Last 24 Hours (Table) 02/02/21 02/02/21 02/02/21 Range/Units 13:13 16:15 19:41 WBC (3.8-10.6) k/uL RBC (4.30-5.90) m/uL Hgb (13.0-17.5) gm/dL Hct (39.0-53.0) % Plt Count (150-450) k/uL Neutrophils # (1.3-7.7) k/uL Monocytes # (0-1.0) k/uL APTT (22.0-30.0) sec Fibrinogen (200-500) mg/dL ABG pH (7.35-7.45) ABG pCO2 (35-45) mmHg ABG pO2 (83-108) mmHg ABG HCO3 (21-25) mmol/L ABG Total CO2 (19-24) mmol/L BUN (9-20) mg/dL Creatinine (0.66-1.25) mg/dL Glucose (74-99) mg/dL POC Glucose (mg/dL) 205 H 233 H (75-99) mg/dL Magnesium (1.6-2.3) mg/dL Lactate Dehydrogenase 5595 H (313-618) U/L 02/02/21 02/02/21 02/03/21 Range/Units 22:40 22:40 00:03 WBC (3.8-10.6) k/uL RBC (4.30-5.90) m/uL Hgb (13.0-17.5) gm/dL Hct (39.0-53.0) % Plt Count (150-450) k/uL Neutrophils # (1.3-7.7) k/uL Monocytes # (0-1.0) k/uL APTT (22.0-30.0) sec Fibrinogen 799 H (200-500) mg/dL ABG pH (7.35-7.45) ABG pCO2 (35-45) mmHg ABG pO2 (83-108) mmHg ABG HCO3 (21-25) mmol/L ABG Total CO2 (19-24) mmol/L BUN (9-20) mg/dL Creatinine (0.66-1.25) mg/dL Glucose (74-99) mg/dL POC Glucose (mg/dL) 232 H (75-99) mg/dL Magnesium (1.6-2.3) mg/dL Lactate Dehydrogenase 5600 H (313-618) U/L 02/03/21 02/03/21 02/03/21 Range/Units 03:49 05:35 05:40 WBC 17.5 H (3.8-10.6) k/uL RBC 3.69 L (4.30-5.90) m/uL Hgb 11.7 L (13.0-17.5) gm/dL Hct 33.6 L (39.0-53.0) % Plt Count 147 L (150-450) k/uL Neutrophils # 13.4 H (1.3-7.7) k/uL Monocytes # 1.5 H (0-1.0) k/uL APTT (22.0-30.0) sec Fibrinogen (200-500) mg/dL ABG pH 7.52 H (7.35-7.45) ABG pCO2 33 L (35-45) mmHg ABG pO2 79 L (83-108) mmHg ABG HCO3 27 H (21-25) mmol/L ABG Total CO2 28 H (19-24) mmol/L BUN (9-20) mg/dL Creatinine (0.66-1.25) mg/dL Glucose (74-99) mg/dL POC Glucose (mg/dL) 225 H (75-99) mg/dL Magnesium (1.6-2.3) mg/dL Lactate Dehydrogenase (313-618) U/L 02/03/21 02/03/21 02/03/21 Range/Units 05:40 05:40 07:26 WBC (3.8-10.6) k/uL RBC (4.30-5.90) m/uL Hgb (13.0-17.5) gm/dL Hct (39.0-53.0) % Plt Count (150-450) k/uL Neutrophils # (1.3-7.7) k/uL Monocytes # (0-1.0) k/uL APTT (22.0-30.0) sec Fibrinogen 703 H (200-500) mg/dL ABG pH (7.35-7.45) ABG pCO2 (35-45) mmHg ABG pO2 (83-108) mmHg ABG HCO3 (21-25) mmol/L ABG Total CO2 (19-24) mmol/L BUN 50 H (9-20) mg/dL Creatinine 1.58 H (0.66-1.25) mg/dL Glucose 234 H (74-99) mg/dL POC Glucose (mg/dL) 247 H (75-99) mg/dL Magnesium 2.5 H (1.6-2.3) mg/dL Lactate Dehydrogenase 5863 H (313-618) U/L 02/03/21 02/03/21 Range/Units 07:40 12:23 WBC (3.8-10.6) k/uL RBC (4.30-5.90) m/uL Hgb (13.0-17.5) gm/dL Hct (39.0-53.0) % Plt Count (150-450) k/uL Neutrophils # (1.3-7.7) k/uL Monocytes # (0-1.0) k/uL APTT 46.1 H (22.0-30.0) sec Fibrinogen (200-500) mg/dL ABG pH (7.35-7.45) ABG pCO2 (35-45) mmHg ABG pO2 (83-108) mmHg ABG HCO3 (21-25) mmol/L ABG Total CO2 (19-24) mmol/L BUN (9-20) mg/dL Creatinine (0.66-1.25) mg/dL Glucose (74-99) mg/dL POC Glucose (mg/dL) 251 H (75-99) mg/dL Magnesium (1.6-2.3) mg/dL Lactate Dehydrogenase (313-618) U/L Microbiology - Last 24 Hours (Table) 02/02/21 20:50 Sputum Culture - Preliminary Sputum 02/01/21 06:36 Blood Culture - Preliminary Blood No Growth after 48 hours 02/01/21 06:30 Urine Culture - Final Urine,Catheterized
[2021-02-03 14:13] LABS: Glucose,Whole Blood 264 mg/dL (75-99)
[2021-02-03 14:30] LABS: Potassium 4.3 mmol/L (3.5-5.1)
[2021-02-03] MEDS: INSULIN REGULAR 100 UNIT in SODIUM CHLORIDE 0.9% 100 ML IV SCH ×2 (14:49→22:50)
[2021-02-03 15:39] LABS: Glucose,Whole Blood 259 mg/dL (75-99)
[2021-02-03] MEDS: ACETAMINOPHEN TAB 325 MG TAB PO PRN (16:21)
[2021-02-03 17:11] LABS: Glucose,Whole Blood 250 mg/dL (75-99)
[2021-02-03 17:57] LABS: Glucose,Whole Blood 228 mg/dL (75-99)
[2021-02-03 19:11] LABS: Glucose,Whole Blood 215 mg/dL (75-99)
[2021-02-03 19:59] LABS: Glucose,Whole Blood 208 mg/dL (75-99)
[2021-02-03] MEDS: SODIUM CHLORIDE 0.9% 1,000 ML IV SCH (20:19)
[2021-02-03 21:03] LABS: Glucose,Whole Blood 201 mg/dL (75-99)
[2021-02-03 22:11] LABS: Glucose,Whole Blood 196 mg/dL (75-99)
[2021-02-03] MEDS ORDERED: SODIUM CHLORIDE 0.9% 500 ML 500 ML IV ONE (22:39)
[2021-02-03 22:50] LABS: Glucose,Whole Blood 164 mg/dL (75-99)
[2021-02-03 23:51] LABS: Glucose,Whole Blood 205 mg/dL (75-99)
[2021-02-04] MEDS: hydrALAZINE HCL 10 MG TAB PO SCH ×2 (00:34→06:47)
[2021-02-04 01:05] LABS: Glucose,Whole Blood 190 mg/dL (75-99)
[2021-02-04 02:00] LABS: Glucose,Whole Blood 203 mg/dL (75-99)
[2021-02-04 02:51] LABS: Glucose,Whole Blood 204 mg/dL (75-99)
[2021-02-04 03:08] LABS: Glucose,Whole Blood 219 mg/dL (75-99)
[2021-02-04] MEDS: HEPARIN SODIUM,PORCINE 12,500 UNIT in DEXTROSE 5% IN WATER 500 ML IV SCH ×4 (04:00→16:25)
[2021-02-04 04:12] LABS: Glucose,Whole Blood 194 mg/dL (75-99)
[2021-02-04] MEDS: HEPARIN SOD,PORK IN 0.45% NACL 25,000 UNIT in 0.45% NACL 1 250ML.BAG IV SCH ×2 (05:10→19:56)
[2021-02-04 05:18] LABS: Glucose,Whole Blood 182 mg/dL (75-99)
[2021-02-04 05:20] LABS: ABG Base Excess 3.1 mmol/L; ABG HCO3 26 mmol/L (21-25); ABG Oxygen Saturation 94.6 % (94-97); ABG PCO2 32 mmHg (35-45); ABG PH 7.52 (7.35-7.45); ABG PO2 69 mmHg (83-108); ABG TCO2 27 mmol/L (19-24); Allen Test Performed? Yes
[2021-02-04 05:40] LABS: Basophils # (A) 0.1 k/uL (0-0.2); Basophils % (A) 0 %; Eosinophils % (A) 0 %; HCT 29.3 % (39.0-53.0); HGB 10.2 gm/dL (13.0-17.5); Lymphocytes # (A) 2.3 k/uL (1.0-4.8); Lymphocytes % (A) 14 %; MCH 31.7 pg (25.0-35.0); MCHC 34.7 g/dL (31.0-37.0); MCV 91.5 fL (80.0-100.0); Mean Platelet Volume 11.7; Monocytes # (A) 1.2 k/uL (0-1.0); Monocytes % (A) 7 %; Neutrophils % (A) 75 %; Platelet Count 127 k/uL (150-450); RBC 3.21 m/uL (4.30-5.90); RDW 14.8 % (11.5-15.5); WBC 16.1 k/uL (3.8-10.6)
[2021-02-04 05:50] LABS: Partial Thromboplastin Time 47.8 sec (22.0-30.0); Prothrombin Time 10.3 sec (9.0-12.0)
[2021-02-04 06:21] LABS: Glucose,Whole Blood 187 mg/dL (75-99)
[2021-02-04] MEDS: CEFEPIME 2 GM in SODIUM CHLORIDE 0.9% 100 ML IVPB SCH ×2 (06:22→18:27)
[2021-02-04 06:52] LABS: Calcium 8.4 mg/dL (8.4-10.2); Magnesium 2.7 mg/dL (1.6-2.3); Potassium 3.7 mmol/L (3.5-5.1)
[2021-02-04 07:00] LABS: Glucose,Whole Blood 184 mg/dL (75-99)
[2021-02-04 08:26] LABS: Glucose,Whole Blood 170 mg/dL (75-99)
--- NOTE | 2021-02-04 08:40 | XR ---
EXAMINATION TYPE: XR chest 1V portable DATE OF EXAM: 02/04/2021 COMPARISON: Chest x-ray 02/03/2021 HISTORY: Intubated TECHNIQUE: Single frontal view of the chest is obtained. FINDINGS: Endotracheal tube, NG tube are overlying appropriate positions. Patient is rotated. Intra- aortic catheter shows a probe overlying the ascending aorta, there is a lead within the ventricle. Re trocardiac density with blunting the left cosmetic angle obscures the left hemidiaphragm. Interstitiu m is increased. Heart may be enlarged. No evident pneumothorax. There are overlying artifacts. IMPRESSION: There may be a component of volume overload, interstitial edema, possible left lower lob e atelectasis versus pneumonia and associated effusion.
[2021-02-04] MEDS: TICAGRELOR 90 MG TAB PO SCH ×2 (08:44→20:53)
[2021-02-04] MEDS: METOPROLOL TARTRATE 12.5 MG TAB PO SCH ×2 (08:44→20:53)
[2021-02-04] MEDS: POTASSIUM CHLORIDE 10 MEQ in WATER FOR INJECTION 1 100ML.BAG IVPB SCH ×2 (08:44→10:08)
[2021-02-04] MEDS: ASPIRIN 81 MG PO SCH (08:44)
[2021-02-04] MEDS: CHLORHEXIDINE GLUCONATE 15 ML CUP MUCOUS MEM SCH ×2 (08:44→20:53)
[2021-02-04] MEDS: LEVOTHYROXINE IVP 100 MCG/5 ML VIAL IV SCH (08:44)
[2021-02-04] MEDS: ATORVASTATIN 80 MG TAB PO SCH (08:44)
[2021-02-04] MEDS: FUROSEMIDE 10 MG/ML 4 ML VIAL IV SCH ×2 (08:44→20:53)
[2021-02-04 09:06] LABS: Glucose,Whole Blood 176 mg/dL (75-99)
[2021-02-04 10:06] LABS: Glucose,Whole Blood 170 mg/dL (75-99)
[2021-02-04 11:16] LABS: Glucose,Whole Blood 176 mg/dL (75-99)
[2021-02-04] MEDS: INSULIN REGULAR 100 UNIT in SODIUM CHLORIDE 0.9% 100 ML IV SCH ×2 (11:22→20:25)
[2021-02-04 11:39] LABS: Glucose,Whole Blood 186 mg/dL (75-99)
--- NOTE | 2021-02-04 11:43 | P.PN ---
Subjective Progress Note Date: 02/04/21 HISTORY OF PRESENT ILLNESS: This is a pleasant 70-year-old male past medical history significant for hypertension, diabetes mellitus, dyslipidemia, chronic neck pain dependence, depression and chronic nicotine dependence. Denies prior history of coronary artery disease and does not follow regularly with a byproducts extractor for any reason. He presented to the hospital with symptoms of shortness of breath. He states it seemed to have started last night however, progressively worse this morning. When he woke up he was having difficulty breathing. He denies ever having had symptoms of chest discomfort. He has no dizziness, palpitations, nausea, vomiting or diaphoresis. He was hector in color and clammy. He said he traveled to [facility] this past weekend and noticed he was easily fatigued which is not normal for him. EKG reveals ST elevation anterolateral leads. This x-ray revealed early congestive heart failure. Laboratory data reviewed, WBC 18, hemoglobin 14.1, platelets 271, sodium 137, potassium 4.1, creatinine 1.0, troponin 1.89 and magnesium 2.4. Current daily cardiac medications include losartan 100 mg daily, pravastatin 40 mg daily, amlodipine 10 mg daily and hydralazine 50 mg twice a day. 02/01/2021 Pt is s/p left heart catheterization with PCI to the LAD and impella placement. Cath revealed RCA sub-totally occluded likely chronic in the mid-portion, circumflex subtotally occluded in the midportion, LAD with a critical lesion in the proximal portion 99% which seems to be thrombotic, mid LAD has another hazy lesion in the range of 30-40%. He underwent successful PCI of the LAD then developed placement. LVEDP was greater than 50 mmHg. Blood pressure is 96/73 heart rate 62 with a temperature of 100.8F. Laboratory data reviewed, WBC 14.6, hemoglobin 13.2, platelets 232, fibrinogen 556, sodium 134, potassium 4, creatinine 1.55, magnesium 2.1 and repeat troponin 149. Echocardiogram obtained revealed severely impaired LV systolic function with ejection fraction 25-30%, apical anterior, apical lateral, apical inferior, apical septal LV wall motion hypokinesia. 02/02 Patient seen and examined. Patient remains on Impella still at P8. He remains sedated on ventilator. Impella LV readings 90's over 0 to low -5. Continues go od urine output. Trend and 1.6 today. MAP's 80s to 85's. Mild oozing around right femoral site. No leg ischemia with doppler able pulses. 02/03 Patient seen and examined. Patient remains intubated and sedated. Deep was decreased to 5 with FiO2 of 45. Impella in place with mild oozing of right femoral site however does not appear significant. No leg ischemia. Was started on hydralazine and isordil yesterday with improved MAP low 70's. Cr mildly improved to 1.58 today. 02/04/2021 Patient examined this morning at the bedside with Dr. Grier in the ICU. Patient remains intubated. Impella remains intact to right groin. Patient remains hypotensive with SBP in the 80s. Patient did receive a fluid bolus overnight. patient remains on IV Lasix 40 mg every 12 hours. Creatinine 1.67, up from 1.5 yesterday. PHYSICAL EXAM: VITAL SIGNS: Reviewed. GENERAL: Well-developed in no acute distress. NECK: Supple. No JVD or thyromegaly LUNGS: Respirations even and unlabored-remains on mechanical ventilation. Lungs diminished bilaterally. HEART: Regular rate and rhythm. S1 and S2 heard. EXTREMITIES: Normal range of motion. No clubbing or cyanosis. Peripheral pulses intact. Impella to right groin with oozing noted. ASSESSMENT: Acute anterior lateral STEMI, s/p PCI to LAD Multivessel coronary artery disease with 99% circumflex and 100% LAD stenosis Cardiogenic shock, s/p Impella placement Acute hypoxic respiratory failure requiring mechanical ventilation Diabetes mellitus Hypertension Dyslipidemia Chronic nicotine dependence Obesity, BMI 37 PLAN: Continue IV lasix Accurate I&O Daily weights Monitor kidney function Continue aspirin, brilinta, lipitor and metoprolol Hydralazine has not been given due to hypotension. Will DC order. Will continue Impella at this time. Will re-evaluate tomorrow for possible removal Further recommendations pending patient course. Nurse practitioner note has been reviewed by physician. Signing provider agrees with the documented findings, assessment, and plan of care. Objective - Vital Signs Vital signs: Vital Signs Temp 100.0 F H 02/04/21 08:00 Pulse 62 02/04/21 10:00 Resp 30 H 02/04/21 10:00 BP 88/65 02/04/21 10:00 Pulse Ox 94 L 02/04/21 10:00 Intake & Output 02/03/21 02/04/21 02/04/21 18:59 06:59 18:59 Intake Total 0387.652 1620.620 632.402 Output Total 1715 847 305 Balance -203.563 901.620 327.402 Weight 99 kg Intake: IV 272 402 244 Cefepime 2 gm In Sodium 100 Chloride 0.9% 100 ml @ 25 mls/hr IVPB Q12H [facility] Rx# :[id number] Heparin Sodium,Porcine 12 90 40 ,500 unit In Dextrose 5% in Water 500 ml @ Per Protocol IV DIRECTED [facility] Rx#:[id number] Pressure Bag 72 72 24 Sodium Chloride 0.9% 1, 200 240 80 000 ml @ 20 mls/hr IV . Q24H [facility] Rx#:[id number] Intake, IV Titration 651.437 683.620 212.402 Amount Cefepime 2 gm In Sodium 25.0 Chloride 0.9% 100 ml @ 25 mls/hr IVPB Q12H [facility] Rx# :[id number] Heparin Sod,Pork in 0.45% 240.969 250 NaCl 25,000 unit In 0.45 % NaCl 1 250ml.bag @ 7.7 UNIT/KG/HR 9.57 mls/hr IV .Q24H [facility] Rx#:[id number] Insulin Regular 100 unit 27.893 99.941 22.843 In Sodium Chloride 0.9% 100 ml @ Per Protocol IV .Q0M [facility] Rx#:[id number] Potassium Chloride 10 meq 100 In Water For Injection 1 100ml.bag @ 100 mls/hr IVPB Q1H [facility] Rx#: [id number] Potassium Chloride 20 meq 100 In Water For Injection 1 100ml.bag @ 50 mls/hr IVPB Q2H [facility] Rx#: [id number] propofoL 1,000 mg In 257.575 333.679 89.559 Empty Bag 1 bag @ Titrate IV .Q0M [facility] Rx#: [id number] Tube Feeding 528 528 176 Other 60 135 Output: Urine 1715 847 305 Other: Voiding Method Indwelling Catheter Indwelling Catheter Indwelling Catheter ABP, PAP, CO, CI - Last Documented Arterial Blood Pressure 89/50 - Labs CBC & Chem 7: 02/04/21 05:15 02/04/21 05:15 Labs: Abnormal Lab Results - Last 24 Hours (Table) 02/03/21 02/03/21 02/03/21 Range/Units 12:23 14:10 14:10 WBC (3.8-10.6) k/uL RBC (4.30-5.90) m/uL Hgb (13.0-17.5) gm/dL Hct (39.0-53.0) % Plt Count (150-450) k/uL Neutrophils # (1.3-7.7) k/uL Monocytes # (0-1.0) k/uL APTT (22.0-30.0) sec Fibrinogen (200-500) mg/dL ABG pH (7.35-7.45) ABG pCO2 (35-45) mmHg ABG pO2 (83-108) mmHg ABG HCO3 (21-25) mmol/L ABG Total CO2 (19-24) mmol/L Chloride (98-107) mmol/L BUN (9-20) mg/dL Creatinine (0.66-1.25) mg/dL Glucose (74-99) mg/dL POC Glucose (mg/dL) 251 H 264 H (75-99) mg/dL Magnesium (1.6-2.3) mg/dL Lactate Dehydrogenase 4978 H (313-618) U/L 02/03/21 02/03/21 02/03/21 Range/Units 15:37 17:10 17:55 WBC (3.8-10.6) k/uL RBC (4.30-5.90) m/uL Hgb (13.0-17.5) gm/dL Hct (39.0-53.0) % Plt Count (150-450) k/uL Neutrophils # (1.3-7.7) k/uL Monocytes # (0-1.0) k/uL APTT (22.0-30.0) sec Fibrinogen (200-500) mg/dL ABG pH (7.35-7.45) ABG pCO2 (35-45) mmHg ABG pO2 (83-108) mmHg ABG HCO3 (21-25) mmol/L ABG Total CO2 (19-24) mmol/L Chloride (98-107) mmol/L BUN (9-20) mg/dL Creatinine (0.66-1.25) mg/dL Glucose (74-99) mg/dL POC Glucose (mg/dL) 259 H 250 H 228 H (75-99) mg/dL Magnesium (1.6-2.3) mg/dL Lactate Dehydrogenase (313-618) U/L 02/03/21 02/03/21 02/03/21 Range/Units 19:10 19:58 21:01 WBC (3.8-10.6) k/uL RBC (4.30-5.90) m/uL Hgb (13.0-17.5) gm/dL Hct (39.0-53.0) % Plt Count (150-450) k/uL Neutrophils # (1.3-7.7) k/uL Monocytes # (0-1.0) k/uL APTT (22.0-30.0) sec Fibrinogen (200-500) mg/dL ABG pH (7.35-7.45) ABG pCO2 (35-45) mmHg ABG pO2 (83-108) mmHg ABG HCO3 (21-25) mmol/L ABG Total CO2 (19-24) mmol/L Chloride (98-107) mmol/L BUN (9-20) mg/dL Creatinine (0.66-1.25) mg/dL Glucose (74-99) mg/dL POC Glucose (mg/dL) 215 H 208 H 201 H (75-99) mg/dL Magnesium (1.6-2.3) mg/dL Lactate Dehydrogenase (313-618) U/L 02/03/21 02/03/21 02/03/21 Range/Units 21:56 21:56 22:08 WBC (3.8-10.6) k/uL RBC (4.30-5.90) m/uL Hgb (13.0-17.5) gm/dL Hct (39.0-53.0) % Plt Count (150-450) k/uL Neutrophils # (1.3-7.7) k/uL Monocytes # (0-1.0) k/uL APTT (22.0-30.0) sec Fibrinogen 748 H (200-500) mg/dL ABG pH (7.35-7.45) ABG pCO2 (35-45) mmHg ABG pO2 (83-108) mmHg ABG HCO3 (21-25) mmol/L ABG Total CO2 (19-24) mmol/L Chloride (98-107) mmol/L BUN (9-20) mg/dL Creatinine (0.66-1.25) mg/dL Glucose (74-99) mg/dL POC Glucose (mg/dL) 196 H (75-99) mg/dL Magnesium (1.6-2.3) mg/dL Lactate Dehydrogenase 4599 H (313-618) U/L 02/03/21 02/03/21 02/04/21 Range/Units 22:49 23:50 01:03 WBC (3.8-10.6) k/uL RBC (4.30-5.90) m/uL Hgb (13.0-17.5) gm/dL Hct (39.0-53.0) % Plt Count (150-450) k/uL Neutrophils # (1.3-7.7) k/uL Monocytes # (0-1.0) k/uL APTT (22.0-30.0) sec Fibrinogen (200-500) mg/dL ABG pH (7.35-7.45) ABG pCO2 (35-45) mmHg ABG pO2 (83-108) mmHg ABG HCO3 (21-25) mmol/L ABG Total CO2 (19-24) mmol/L Chloride (98-107) mmol/L BUN (9-20) mg/dL Creatinine (0.66-1.25) mg/dL Glucose (74-99) mg/dL POC Glucose (mg/dL) 164 H 205 H 190 H (75-99) mg/dL Magnesium (1.6-2.3) mg/dL Lactate Dehydrogenase (313-618) U/L 02/04/21 02/04/21 02/04/21 Range/Units 01:58 02:50 03:06 WBC (3.8-10.6) k/uL RBC (4.30-5.90) m/uL Hgb (13.0-17.5) gm/dL Hct (39.0-53.0) % Plt Count (150-450) k/uL Neutrophils # (1.3-7.7) k/uL Monocytes # (0-1.0) k/uL APTT (22.0-30.0) sec Fibrinogen (200-500) mg/dL ABG pH (7.35-7.45) ABG pCO2 (35-45) mmHg ABG pO2 (83-108) mmHg ABG HCO3 (21-25) mmol/L ABG Total CO2 (19-24) mmol/L Chloride (98-107) mmol/L BUN (9-20) mg/dL Creatinine (0.66-1.25) mg/dL Glucose (74-99) mg/dL POC Glucose (mg/dL) 203 H 204 H 219 H (75-99) mg/dL Magnesium (1.6-2.3) mg/dL Lactate Dehydrogenase (313-618) U/L 02/04/21 02/04/21 02/04/21 Range/Units 04:10 05:15 05:15 WBC 16.1 H (3.8-10.6) k/uL RBC 3.21 L (4.30-5.90) m/uL Hgb 10.2 L (13.0-17.5) gm/dL Hct 29.3 L (39.0-53.0) % Plt Count 127 L (150-450) k/uL Neutrophils # 12.0 H (1.3-7.7) k/uL Monocytes # 1.2 H (0-1.0) k/uL APTT 47.8 H (22.0-30.0) sec Fibrinogen 765 H (200-500) mg/dL ABG pH (7.35-7.45) ABG pCO2 (35-45) mmHg ABG pO2 (83-108) mmHg ABG HCO3 (21-25) mmol/L ABG Total CO2 (19-24) mmol/L Chloride (98-107) mmol/L BUN (9-20) mg/dL Creatinine (0.66-1.25) mg/dL Glucose (74-99) mg/dL POC Glucose (mg/dL) 194 H (75-99) mg/dL Magnesium (1.6-2.3) mg/dL Lactate Dehydrogenase (313-618) U/L 02/04/21 02/04/21 02/04/21 Range/Units 05:15 05:15 05:16 WBC (3.8-10.6) k/uL RBC (4.30-5.90) m/uL Hgb (13.0-17.5) gm/dL Hct (39.0-53.0) % Plt Count (150-450) k/uL Neutrophils # (1.3-7.7) k/uL Monocytes # (0-1.0) k/uL APTT (22.0-30.0) sec Fibrinogen (200-500) mg/dL ABG pH 7.52 H (7.35-7.45) ABG pCO2 32 L (35-45) mmHg ABG pO2 69 L (83-108) mmHg ABG HCO3 26 H (21-25) mmol/L ABG Total CO2 27 H (19-24) mmol/L Chloride 109 H (98-107) mmol/L BUN 66 H (9-20) mg/dL Creatinine 1.67 H (0.66-1.25) mg/dL Glucose 164 H (74-99) mg/dL POC Glucose (mg/dL) 182 H (75-99) mg/dL Magnesium 2.7 H (1.6-2.3) mg/dL Lactate Dehydrogenase 4528 H (313-618) U/L 02/04/21 02/04/21 02/04/21 Range/Units 06:20 06:58 08:25 WBC (3.8-10.6) k/uL RBC (4.30-5.90) m/uL Hgb (13.0-17.5) gm/dL Hct (39.0-53.0) % Plt Count (150-450) k/uL Neutrophils # (1.3-7.7) k/uL Monocytes # (0-1.0) k/uL APTT (22.0-30.0) sec Fibrinogen (200-500) mg/dL ABG pH (7.35-7.45) ABG pCO2 (35-45) mmHg ABG pO2 (83-108) mmHg ABG HCO3 (21-25) mmol/L ABG Total CO2 (19-24) mmol/L Chloride (98-107) mmol/L BUN (9-20) mg/dL Creatinine (0.66-1.25) mg/dL Glucose (74-99) mg/dL POC Glucose (mg/dL) 187 H 184 H 170 H (75-99) mg/dL Magnesium (1.6-2.3) mg/dL Lactate Dehydrogenase (313-618) U/L 02/04/21 02/04/21 Range/Units 09:05 10:04 WBC (3.8-10.6) k/uL RBC (4.30-5.90) m/uL Hgb (13.0-17.5) gm/dL Hct (39.0-53.0) % Plt Count (150-450) k/uL Neutrophils # (1.3-7.7) k/uL Monocytes # (0-1.0) k/uL APTT (22.0-30.0) sec Fibrinogen (200-500) mg/dL ABG pH (7.35-7.45) ABG pCO2 (35-45) mmHg ABG pO2 (83-108) mmHg ABG HCO3 (21-25) mmol/L ABG Total CO2 (19-24) mmol/L Chloride (98-107) mmol/L BUN (9-20) mg/dL Creatinine (0.66-1.25) mg/dL Glucose (74-99) mg/dL POC Glucose (mg/dL) 176 H 170 H (75-99) mg/dL Magnesium (1.6-2.3) mg/dL Lactate Dehydrogenase (313-618) U/L Microbiology - Last 24 Hours (Table) 02/02/21 20:50 Gram Stain - Preliminary Sputum Sputum Culture - Preliminary Presumptive Staph aureus 02/01/21 06:36 Blood Culture - Preliminary Blood No Growth after 72 hours
--- NOTE | 2021-02-04 11:50 | P.PN ---
Subjective Progress Note Date: 02/04/21 Principal diagnosis: ST segment elevation myocardial infarction, respiratory failure. Cardiogenic shock and acute hypoxic respiratory failure secondary to cardiogenic shock This is a 70-year-old white male, with history of hypertension, diabetes, dyslipidemia, chronic neck pain, depression, chronic nicotine dependence, no previous history of documented coronary artery disease. Patient came into the hospital with symptoms of acute shortness of breath. Patient woke up this m orning and he was complaining of shortness of breath, he had no dizziness no palpitation no nausea no vomiting or diaphoresis. However the patient was noted to be hector in color and clammy. EKG upon his initial presentation showed ST elevation in the anterolateral leads. Chest x-ray showed evidence of congestive heart failure. Troponin was 1.89. Patient was seen by cardiology and he was noted to have acute anterior lateral stress ST elevated myocardial infarction, hence the patient was taken straight to cardiac catheterization. While in the cardiac catheterization lab, patient underwent stenting and apparently during the cardiac catheterization patient went into full cardiogenic shock, patient was intubated and placed on mechanical ventilation, and an impella device was placed. The device was placed in the right groin through the femoral artery. Patient was transferred to the ICU on mechanical ventilation, and I was asked to see him on consultation. Patient was placed on tidal volume of 450, FiO2 of 100%, EPAP of 10, and assist control rate of 30. Chest x-ray showed evidence of pulmonary edema ABG showed a pO2 of 78 pCO2 of 51 pH of 7.23. Will increase to follow volume to 500 and will likely increase PEEP to 12. on 02/01/2021 patient seen in follow-up in the intensive care unit. He remains sedated, intubated on mechanical ventilator, with assist control mode of vent ilation rate of 30, tidal vital was 500, FiO2 of 50% and PEEP of 12. This point his blood gases show pO2 of 117, pCO2 31, and pH of 7.43, and this was done on FiO2 of 50%, today's chest x-ray has been reviewed showing improving perihilar and basilar infiltrates. Hemodynamically patient remains on Impella device. He is on 0.9 normal saline at 20 ML per hour, his Diprivan and is at 35 mics per ki lo per minute, and Lasix infusion at 10 mg per hour, his heparin infusion is at weight-based protocol. He is in negative fluid balance, -1009 mL over the last 24 hours. Today's labs show improvement of patient's white blood cell count down to 14.6, hemoglobin is 13.2, CMP showed sodium of 134, potassium is 4.0, chloride is 107, CO2 is 20, BUN of 30, creatinine is 1.55. Patient's second troponin increased to 149. The heart rhythm is sinus rhythm on the monitor with a rate of 68 BPM, not requiring any vasopressor support at this time, we added empiric antibiotics in the form of cefepime and vancomycin for empiric antibiotic coverage especially in view of elevated white count and multiple i ndwelling lines. patient was tested for COVID-19 via PCR test and was found to be negative. Patient continues on Lasix, and is producing urine output in the order of 250-400 mL per hour. Patient also remains on aspirin 81 mg and Brilinta. His echocardiogram showed severely impaired left acute systolic function with an EF of 25-30% On 02/02/2021, patient remains in the ICU, intubated and mechanically ventilated. Patient continues to have the left ventricular assist device in place. Remains on Lasix drip at 10 mg per hour remains on propofol at 45 mcg/kg/m, he is also on heparin and antiplatelet therapy/UL. He is on vital hp 30 mL per hour. His ventilator settings are assist control rate of 30 volume of 500 FiO2 45% PEEP is at 8. ABG showed a pO2 of 78 pCO2 of 32 pH of 7.51. Sugars are running a bit high, hence I recommended adding Levemir insulin 20 units daily. And continue A ccu-Cheks. Cardiology is planning to keep the ventricular assist device for another day, and we will hold on plans to wean and exited the patient on to the impact has been removed. Labs were reviewed today, WBC count is 16.9 hemoglobin is 12.4. Potassium is low at 2.9 be corrected as per protocol. BUN is 39 and creatinine is 1.61, slightly worse compared to the last couple of days. LDH is over 5000. Patient is a negative balance about 3-1/2 L since he was admitted to the ICU, chest x-ray continues to show mild interstitial edema bilaterally. Patient was reevaluated today on 02/03/2021, remains in the ICU, intubated and mechanically ventilated. Remains on Lasix drip, propofol at 45 mcg/kg/m, Lasix 10 mg per hour heparin drip, he is also on vital Hp/enteral feeding. Patient remains on cefepime. His ventilator settings are assist control rate of 30 tidal volumes 500 FiO2 45% PEEP was 8 and I cut it down to 5. ABG showed a pO2 of 79 pCO2 of 33 pH of 7.5 to chest x-ray continues to show some mild pulmonary edema, and left lower lobe atelectasis, possibly a small left-sided pleural effusion. Patient had a negative balance of 2.5 L over the last 24 hours. Remains on impella at p8, minimal oozing at the right femoral site noted, not considered clinically significant. No evidence of any leg ischemia. Hydralazine was started yesterday to improve his mean arterial pressure to the low 70s. Creatinine is improving, it is down to 1.58 today. WBC count is 17.5 hemoglobin is 11.7. PTT is 46. Remains on heparin. LDH is elevated at 5863 Progress note dated 02/04/2021. This is a 70-year-old male, admitted on January 31, with an ST segment elevation myocardial infarction. He came to the ICU on January 31 for respiratory failure, and was intubated on January 31. He had an Impella device inserted on January 31. The patient remains on the mechanical ventilator. Once the Impella device is removed, the patient could likely be weaned and extubated. Currently, he is on the volume assist control mode, rate of 30, tidal volume 500, FiO2 35%, and a PEEP of 5. Blood gases show a PaO2 of 69, PaCO2 32, and a pH is 7.52. The patient remains on IV heparin via weightbase protocol, insulin drip at 11 units an hour, propofol at 45 mcg/kg/m, saline at 20 mL an hour, and vital high prote in for nutrition, at 44 mL an hour, which is goal. White count 16.1, hemoglobin 10.2, hematocrit 29.3, and platelet count 127,000. PT 10.3, INR 1.0, PTT 47.8, and fibrinogen 765. Sodium 140, potassium 3.7, chlorides 109, CO2 28, anion gap is 3, BUN 66, and creatinine 1.67. Chest x-ray shows evidence of mild interstitial edema in my opinion. Objective - Vital Signs Vital signs: Vital Signs Temp 100.0 F H 02/04/21 08:00 Pulse 63 02/04/21 11:00 Resp 30 H 02/04/21 11:00 BP 88/65 02/04/21 11:00 Pulse Ox 93 L 02/04/21 11:00 Intake & Output 02/03/21 02/04/21 02/04/21 18:59 06:59 18:59 Intake Total 8260.252 3277.620 695.074 Output Total 1715 847 305 Balance -203.563 901.620 390.074 Weight 99 kg Intake: IV 272 402 244 Cefepime 2 gm In Sodium 100 Chloride 0.9% 100 ml @ 25 mls/hr IVPB Q12H [facility] Rx# :[id number] Heparin Sodium,Porcine 12 90 40 ,500 unit In Dextrose 5% in Water 500 ml @ Per Protocol IV DIRECTED [facility] Rx#:[id number] Pressure Bag 72 72 24 Sodium Chloride 0.9% 1, 200 240 80 000 ml @ 20 mls/hr IV . Q24H [facility] Rx#:[id number] Intake, IV Titration 651.437 683.620 275.074 Amount Cefepime 2 gm In Sodium 25.0 Chloride 0.9% 100 ml @ 25 mls/hr IVPB Q12H [facility] Rx# :[id number] Heparin Sod,Pork in 0.45% 240.969 250 NaCl 25,000 unit In 0.45 % NaCl 1 250ml.bag @ 7.7 UNIT/KG/HR 9.57 mls/hr IV .Q24H [facility] Rx#:[id number] Insulin Regular 100 unit 27.893 99.941 47.958 In Sodium Chloride 0.9% 100 ml @ Per Protocol IV .Q0M [facility] Rx#:[id number] Potassium Chloride 10 meq 100 In Water For Injection 1 100ml.bag @ 100 mls/hr IVPB Q1H [facility] Rx#: [id number] Potassium Chloride 20 meq 100 In Water For Injection 1 100ml.bag @ 50 mls/hr IVPB Q2H [facility] Rx#: [id number] propofoL 1,000 mg In 257.575 333.679 127.116 Empty Bag 1 bag @ Titrate IV .Q0M [facility] Rx#: [id number] Tube Feeding 528 528 176 Other 60 135 Output: Urine 1715 847 305 Other: Voiding Method Indwelling Catheter Indwelling Catheter Indwelling Catheter ABP, PAP, CO, CI - Last Documented Arterial Blood Pressure 96/52 - Exam No acute distress, sedated, with an orally placed endotracheal tube. HEENT examination is grossly unremarkable. Neck supple. Full range of motion. No adenopathy thyromegaly or neck vein distention. Cardiovascular examination reveals regular rhythm rate. S1-S2 normal. No S3 or S4. No discernible murmur noted. Heart rate 63 bpm. Heart sounds are distant. Lungs reveal bilateral scattered rhonchi and a few basilar crackles. No wheezes. Breath sounds equal bilaterally. Abdomen soft bowel sounds are heard. No masses or tenderness. Extremities are intact. Minimal lower extremity edema. No cyanosis or clubbing. Skin is without rash or lesion. Neurologic examination cannot be adequately assessed at this time given the patient's current level of sedation. - Labs CBC & Chem 7: 02/04/21 05:15 02/04/21 05:15 Labs: Abnormal Lab Results - Last 24 Hours (Table) 02/03/21 02/03/21 02/03/21 Range/Units 12:23 14:10 14:10 WBC (3.8-10.6) k/uL RBC (4.30-5.90) m/uL Hgb (13.0-17.5) gm/dL Hct (39.0-53.0) % Plt Count (150-450) k/uL Neutrophils # (1.3-7.7) k/uL Monocytes # (0-1.0) k/uL APTT (22.0-30.0) sec Fibrinogen (200-500) mg/dL ABG pH (7.35-7.45) ABG pCO2 (35-45) mmHg ABG pO2 (83-108) mmHg ABG HCO3 (21-25) mmol/L ABG Total CO2 (19-24) mmol/L Chloride (98-107) mmol/L BUN (9-20) mg/dL Creatinine (0.66-1.25) mg/dL Glucose (74-99) mg/dL POC Glucose (mg/dL) 251 H 264 H (75-99) mg/dL Magnesium (1.6-2.3) mg/dL Lactate Dehydrogenase 4978 H (313-618) U/L 02/03/21 02/03/21 02/03/21 Range/Units 15:37 17:10 17:55 WBC (3.8-10.6) k/uL RBC (4.30-5.90) m/uL Hgb (13.0-17.5) gm/dL Hct (39.0-53.0) % Plt Count (150-450) k/uL Neutrophils # (1.3-7.7) k/uL Monocytes # (0-1.0) k/uL APTT (22.0-30.0) sec Fibrinogen (200-500) mg/dL ABG pH (7.35-7.45) ABG pCO2 (35-45) mmHg ABG pO2 (83-108) mmHg ABG HCO3 (21-25) mmol/L ABG Total CO2 (19-24) mmol/L Chloride (98-107) mmol/L BUN (9-20) mg/dL Creatinine (0.66-1.25) mg/dL Glucose (74-99) mg/dL POC Glucose (mg/dL) 259 H 250 H 228 H (75-99) mg/dL Magnesium (1.6-2.3) mg/dL Lactate Dehydrogenase (313-618) U/L 02/03/21 02/03/21 02/03/21 Range/Units 19:10 19:58 21:01 WBC (3.8-10.6) k/uL RBC (4.30-5.90) m/uL Hgb (13.0-17.5) gm/dL Hct (39.0-53.0) % Plt Count (150-450) k/uL Neutrophils # (1.3-7.7) k/uL Monocytes # (0-1.0) k/uL APTT (22.0-30.0) sec Fibrinogen (200-500) mg/dL ABG pH (7.35-7.45) ABG pCO2 (35-45) mmHg ABG pO2 (83-108) mmHg ABG HCO3 (21-25) mmol/L ABG Total CO2 (19-24) mmol/L Chloride (98-107) mmol/L BUN (9-20) mg/dL Creatinine (0.66-1.25) mg/dL Glucose (74-99) mg/dL POC Glucose (mg/dL) 215 H 208 H 201 H (75-99) mg/dL Magnesium (1.6-2.3) mg/dL Lactate Dehydrogenase (313-618) U/L 02/03/21 02/03/21 02/03/21 Range/Units 21:56 21:56 22:08 WBC (3.8-10.6) k/uL RBC (4.30-5.90) m/uL Hgb (13.0-17.5) gm/dL Hct (39.0-53.0) % Plt Count (150-450) k/uL Neutrophils # (1.3-7.7) k/uL Monocytes # (0-1.0) k/uL APTT (22.0-30.0) sec Fibrinogen 748 H (200-500) mg/dL ABG pH (7.35-7.45) ABG pCO2 (35-45) mmHg ABG pO2 (83-108) mmHg ABG HCO3 (21-25) mmol/L ABG Total CO2 (19-24) mmol/L Chloride (98-107) mmol/L BUN (9-20) mg/dL Creatinine (0.66-1.25) mg/dL Glucose (74-99) mg/dL POC Glucose (mg/dL) 196 H (75-99) mg/dL Magnesium (1.6-2.3) mg/dL Lactate Dehydrogenase 4599 H (313-618) U/L 02/03/21 02/03/21 02/04/21 Range/Units 22:49 23:50 01:03 WBC (3.8-10.6) k/uL RBC (4.30-5.90) m/uL Hgb (13.0-17.5) gm/dL Hct (39.0-53.0) % Plt Count (150-450) k/uL Neutrophils # (1.3-7.7) k/uL Monocytes # (0-1.0) k/uL APTT (22.0-30.0) sec Fibrinogen (200-500) mg/dL ABG pH (7.35-7.45) ABG pCO2 (35-45) mmHg ABG pO2 (83-108) mmHg ABG HCO3 (21-25) mmol/L ABG Total CO2 (19-24) mmol/L Chloride (98-107) mmol/L BUN (9-20) mg/dL Creatinine (0.66-1.25) mg/dL Glucose (74-99) mg/dL POC Glucose (mg/dL) 164 H 205 H 190 H (75-99) mg/dL Magnesium (1.6-2.3) mg/dL Lactate Dehydrogenase (313-618) U/L 02/04/21 02/04/21 02/04/21 Range/Units 01:58 02:50 03:06 WBC (3.8-10.6) k/uL RBC (4.30-5.90) m/uL Hgb (13.0-17.5) gm/dL Hct (39.0-53.0) % Plt Count (150-450) k/uL Neutrophils # (1.3-7.7) k/uL Monocytes # (0-1.0) k/uL APTT (22.0-30.0) sec Fibrinogen (200-500) mg/dL ABG pH (7.35-7.45) ABG pCO2 (35-45) mmHg ABG pO2 (83-108) mmHg ABG HCO3 (21-25) mmol/L ABG Total CO2 (19-24) mmol/L Chloride (98-107) mmol/L BUN (9-20) mg/dL Creatinine (0.66-1.25) mg/dL Glucose (74-99) mg/dL POC Glucose (mg/dL) 203 H 204 H 219 H (75-99) mg/dL Magnesium (1.6-2.3) mg/dL Lactate Dehydrogenase (313-618) U/L 02/04/21 02/04/21 02/04/21 Range/Units 04:10 05:15 05:15 WBC 16.1 H (3.8-10.6) k/uL RBC 3.21 L (4.30-5.90) m/uL Hgb 10.2 L (13.0-17.5) gm/dL Hct 29.3 L (39.0-53.0) % Plt Count 127 L (150-450) k/uL Neutrophils # 12.0 H (1.3-7.7) k/uL Monocytes # 1.2 H (0-1.0) k/uL APTT 47.8 H (22.0-30.0) sec Fibrinogen 765 H (200-500) mg/dL ABG pH (7.35-7.45) ABG pCO2 (35-45) mmHg ABG pO2 (83-108) mmHg ABG HCO3 (21-25) mmol/L ABG Total CO2 (19-24) mmol/L Chloride (98-107) mmol/L BUN (9-20) mg/dL Creatinine (0.66-1.25) mg/dL Glucose (74-99) mg/dL POC Glucose (mg/dL) 194 H (75-99) mg/dL Magnesium (1.6-2.3) mg/dL Lactate Dehydrogenase (313-618) U/L 02/04/21 02/04/21 02/04/21 Range/Units 05:15 05:15 05:16 WBC (3.8-10.6) k/uL RBC (4.30-5.90) m/uL Hgb (13.0-17.5) gm/dL Hct (39.0-53.0) % Plt Count (150-450) k/uL Neutrophils # (1.3-7.7) k/uL Monocytes # (0-1.0) k/uL APTT (22.0-30.0) sec Fibrinogen (200-500) mg/dL ABG pH 7.52 H (7.35-7.45) ABG pCO2 32 L (35-45) mmHg ABG pO2 69 L (83-108) mmHg ABG HCO3 26 H (21-25) mmol/L ABG Total CO2 27 H (19-24) mmol/L Chloride 109 H (98-107) mmol/L BUN 66 H (9-20) mg/dL Creatinine 1.67 H (0.66-1.25) mg/dL Glucose 164 H (74-99) mg/dL POC Glucose (mg/dL) 182 H (75-99) mg/dL Magnesium 2.7 H (1.6-2.3) mg/dL Lactate Dehydrogenase 4528 H (313-618) U/L 02/04/21 02/04/21 02/04/21 Range/Units 06:20 06:58 08:25 WBC (3.8-10.6) k/uL RBC (4.30-5.90) m/uL Hgb (13.0-17.5) gm/dL Hct (39.0-53.0) % Plt Count (150-450) k/uL Neutrophils # (1.3-7.7) k/uL Monocytes # (0-1.0) k/uL APTT (22.0-30.0) sec Fibrinogen (200-500) mg/dL ABG pH (7.35-7.45) ABG pCO2 (35-45) mmHg ABG pO2 (83-108) mmHg ABG HCO3 (21-25) mmol/L ABG Total CO2 (19-24) mmol/L Chloride (98-107) mmol/L BUN (9-20) mg/dL Creatinine (0.66-1.25) mg/dL Glucose (74-99) mg/dL POC Glucose (mg/dL) 187 H 184 H 170 H (75-99) mg/dL Magnesium (1.6-2.3) mg/dL Lactate Dehydrogenase (313-618) U/L 02/04/21 02/04/21 02/04/21 Range/Units 09:05 10:04 11:15 WBC (3.8-10.6) k/uL RBC (4.30-5.90) m/uL Hgb (13.0-17.5) gm/dL Hct (39.0-53.0) % Plt Count (150-450) k/uL Neutrophils # (1.3-7.7) k/uL Monocytes # (0-1.0) k/uL APTT (22.0-30.0) sec Fibrinogen (200-500) mg/dL ABG pH (7.35-7.45) ABG pCO2 (35-45) mmHg ABG pO2 (83-108) mmHg ABG HCO3 (21-25) mmol/L ABG Total CO2 (19-24) mmol/L Chloride (98-107) mmol/L BUN (9-20) mg/dL Creatinine (0.66-1.25) mg/dL Glucose (74-99) mg/dL POC Glucose (mg/dL) 176 H 170 H 176 H (75-99) mg/dL Magnesium (1.6-2.3) mg/dL Lactate Dehydrogenase (313-618) U/L 02/04/21 Range/Units 11:36 WBC (3.8-10.6) k/uL RBC (4.30-5.90) m/uL Hgb (13.0-17.5) gm/dL Hct (39.0-53.0) % Plt Count (150-450) k/uL Neutrophils # (1.3-7.7) k/uL Monocytes # (0-1.0) k/uL APTT (22.0-30.0) sec Fibrinogen (200-500) mg/dL ABG pH (7.35-7.45) ABG pCO2 (35-45) mmHg ABG pO2 (83-108) mmHg ABG HCO3 (21-25) mmol/L ABG Total CO2 (19-24) mmol/L Chloride (98-107) mmol/L BUN (9-20) mg/dL Creatinine (0.66-1.25) mg/dL Glucose (74-99) mg/dL POC Glucose (mg/dL) 186 H (75-99) mg/dL Magnesium (1.6-2.3) mg/dL Lactate Dehydrogenase (313-618) U/L Microbiology - Last 24 Hours (Table) 02/02/21 20:50 Gram Stain - Preliminary Sputum Sputum Culture - Preliminary Presumptive Staph aureus 02/01/21 06:36 Blood Culture - Preliminary Blood No Growth after 72 hours Assessment and Plan Assessment: Acute ST elevation myocardial infarction, status post stenting of LAD, and placement of an Impella device on 01/31/2021. Hypoxemic respiratory failure secondary to cardiogenic shock, status post intuba tion and mechanical ventilation on 01/31/2021. Acute pulmonary edema secondary to myocardial infarction. Morbid obesity, with a BMI of 37.2. Benign essential hypertension. Hyperlipidemia. Tobacco dependence syndrome. History of depression. Plan: Plan dated 02/04/2021. Once the Impella device is removed, the patient could likely be weaned and extubated. We will continue to follow. Additional recommendations and suggestions are forthcoming. The patient remains on IV heparin, insulin, and propofol. The patient is being enterally fed at goal. We will continue to follow make recommendations were appropriate. Prognosis is guarded. Time with Patient: Greater than 30
[2021-02-04] MEDS: DOBUTamine DRIP 500 MG in DEXTROSE/WATER 1 250ML.BAG IV SCH (13:17)
[2021-02-04] MEDS: NOREPINEPHRINE 8 MG in SODIUM CHLORIDE 0.9% 250 ML IV SCH (13:18)
--- NOTE | 2021-02-04 13:20 | CDI ---
Documentation Clarification Form Date: 02/04/2021 01:04:34 PM From: Tahmina Babb RN, CCDS Admit Date: 01/31/2021 12:30:00 PM Patient Name: Clovis Nicolas Visit Number: [id number] ATTENTION: The Clinical Documentation Specialists (CDI) and [facility] Coding Staff appreciate your assistance in clarifying documentation. Please respond to the clarification below the line at the bottom and electronically sign. The CDI & [facility] Coding staff will review the response and follow-up if needed. Please note: Queries are made part of the Legal Health Record. If you have any questions, please contact the author of this message via ITS. Dr. Jamie Delgado Your patient has the documented diagnosis of unspecified CHF and acute pulmonary edema throughout the record. Additional information regarding the type & acuity of CHF is requested. History/Risk Factors: Acute anterior lateral STEMI, cardiogenic shock with Impella in place, CAD, HTN, DM2, Obesity, Tobacco dependence Clinical Indicators: 02/02-02/03 16 Cardiology progress note; "Continue to optimize heart failure regimen as able." 02/02 Attending Progress note: "Heart underlying ventricular assist, congestive heart failure and pulmonary edema improved still hypotensive with the recovery of his tonsil GA with ST segment elevation in the EKG and the drop in his ejection fraction 25%. Chest x-ray 02/02/21 impression unstable x-ray correlate for congestive heart failure versus bilateral pneumonia with pleural effusion." 02/02 Attending Progress note: "Heart regular sinus with the hypotension supported with IV fluid and history of decompensation and congestive heart failure and ejection fraction 25% with the previous echocardiogram on 2012 was 60%." 02/04 1200 VS/Pulse OX: Temp 99.5, HR 70, RR 30, B/P 88/65, ABP 96.52, Spo2 93% on 35% MV 01/31 BNP: 2470 01/31 Echocardiogram Results: EF 25-30%, moderate concentric left ventricular hypertrophy, Apical anterior/lateral/inferior/septum LV is hypokinetic 02/04 Chest X Ray: There may be a component of volume overload, interstitial edema, possible left lower lobe atelectasis versus pneumonia and associated effusion." Treatment: 01/31-02/02 Lasix Gtt @ 10 mg/hr., then changed to 40 mg IVP Q12hrs. 02/04 Dobutamine Gtt @ 2.5mcg./kg/min ordered 02/04 Levophed Gtt titrate for B/P is also ordered In your professional opinion, can you please clarify the [acuity and type] of CHF if known? [X ] Acute Systolic Heart Failure (reduced EF) [ ] Acute on Chronic Systolic Heart Failure (reduced EF) [ ] Acute Systolic & Diastolic Heart Failure [ ] Acute on Chronic Heart Failure Systolic & Diastolic Heart Failure [ ] Other, please specify [ ] Unable to determine (Template Last Revised: October 2020) MTDD
[2021-02-04] MEDS ORDERED: VANCOMYCIN IV PER PHARMACY 1 EACH MISC MISCELLANE PRN (13:28)
[2021-02-04 13:50] LABS: Glucose,Whole Blood 182 mg/dL (75-99)
[2021-02-04] MEDS: VANCOMYCIN 1,750 MG in SODIUM CHLORIDE 0.9% 500 ML 500 ML IVPB SCH (13:51)
[2021-02-04 14:43] LABS: Glucose,Whole Blood 158 mg/dL (75-99)
--- NOTE | 2021-02-04 16:06 | P.PN ---
Subjective Progress Note Date: 02/04/21 (Staph aureus in the sputum) Progress note date of service 02/04/[address] Celeste In ICU room 260. Patient seen and evaluated examined in the ICU [id number]. Patient intubated on ventilator, ALLERGY to, feeding tube, and Banda catheter, arterial line, central line, left ventricular assist with Impala. Patient on sedation with propofol drip, insulin drip for controlling the blood sugar which has been improved significantly. Sputum found to be presumptive staph aureus, I did speak with the pharmacist and was started vancomycin pharmacy to dose and frequency to be judged with the underlying chronic kidney disease with the associated acute kidney injury on admission secondary to prerenal drop off his ejection fraction to 25% record indicating his ejection fraction was 60%. He had leukocytosis and presumptive pneumonia and as well as congestive heart failure and pulmonary edema on admission with the complicated acute myocardial infarction [place] and a cardiac catheterization found subtotal right coronary artery occlusion and LAD high-grade critical stenosis treated with PCI and s tenting with the low ejection fraction he has no left ventricular assist with Impala device. Which left frontal today with a probable removal tomorrow by the cardiology. Patient sedated on the vent Head was normocephalic and atraumatic eyes closed. Neck was supple Chest created with the endotracheal tube and ventilatory mechanical and he is comfortable with the setting which monitored by Dr. Rojas and Dr. Mason on his around today. Heart acute myocardial infarction with ST segment elevation and the cardiogenic shock which currently assisted and still is blood pressure in the 90s systolic b ut perfusing with the urine output satisfactory however the chest x-ray today showed increased vascularities, he is on IV Lasix drip as well. The abdomen protuberant soft and positive bowel sounds Extremities no edema and palpable pulses in both feet right and the left. Neurologically: Sedated no evidence of tremor or seizures Assessment: #1 multiple coronary artery disease with the obstructive coronary artery the right coronary subtotal and left coronary high-grade stenosis underwent angioplasty as well as stenting by Dr. Meier as well as placement of left ventricular catheter assessed. Cardiogenic shock with hypotension currently stable at the level of 90 systolic. #3 diabetes mellitus type 2 was not controlled with the Accu-Chek changed to intravenous drip insulin on the protocol with a good result on controlling the blood sugar. #4 hypothyroidism on IV levothyroxine stable #5 history of depression, bipolar will be starting his medication after endotracheal tube removed and patient is conscious to avoid any interaction with the current medication. #6 leukocytosis with the underlying pneumonia, sputum positive for staph aureus, and we restarted the vancomycin per pharmacy to dose according to his renal function. #7 underlying COPD, chronic smoking, nicotine dependence. #8 pulmonary edema in association of the acute myocardial infarction. #9 acute kidney injury followed by kidney disease mild elevation of creatinine and BUN. Plan: #1 started on vancomycin per pharmacy to dose and I did speak with the pharmacy inpatient department #2 still will continue the cefepime IV. #3 patient in ICU monitored by cardiology Dr. Delgado saw him today, pulmonary and critical Dr. Mason saw him today. #4 prognosis is still critical. Objective - Vital Signs Vital signs: Vital Signs Temp 99.5 F 02/04/21 12:00 Pulse 74 02/04/21 15:00 Resp 31 H 02/04/21 15:00 BP 93/65 02/04/21 15:00 Pulse Ox 94 L 02/04/21 15:00 Intake & Output 02/03/21 02/04/21 02/04/21 18:59 06:59 18:59 Intake Total 7801.128 2044.620 1945.803 Output Total 1715 847 665 Balance -203.563 150.976 4441.803 Weight 99 kg 99 kg Intake: IV 272 402 424 Cefepime 2 gm In Sodium 100 Chloride 0.9% 100 ml @ 25 mls/hr IVPB Q12H [facility] Rx# :[id number] Heparin Sodium,Porcine 12 90 90 ,500 unit In Dextrose 5% in Water 500 ml @ Per Protocol IV DIRECTED [facility] Rx#:[id number] Pressure Bag 72 72 54 Sodium Chloride 0.9% 1, 200 240 180 000 ml @ 20 mls/hr IV . Q24H [facility] Rx#:[id number] Intake, IV Titration 651.437 852.316 9862.803 Amount Cefepime 2 gm In Sodium 25.0 Chloride 0.9% 100 ml @ 25 mls/hr IVPB Q12H [facility] Rx# :[id number] Heparin Sod,Pork in 0.45% 240.969 250 NaCl 25,000 unit In 0.45 % NaCl 1 250ml.bag @ 7.7 UNIT/KG/HR 9.57 mls/hr IV .Q24H [facility] Rx#:[id number] Insulin Regular 100 unit 27.893 99.941 83.510 In Sodium Chloride 0.9% 100 ml @ Per Protocol IV .Q0M [facility] Rx#:[id number] Potassium Chloride 10 meq 200 In Water For Injection 1 100ml.bag @ 100 mls/hr IVPB Q1H [facility] Rx#: [id number] Potassium Chloride 20 meq 100 In Water For Injection 1 100ml.bag @ 50 mls/hr IVPB Q2H [facility] Rx#: [id number] Vancomycin 1,750 mg In 500 Sodium Chloride 0.9% 500 ml 500 ml @ 167 mls/hr IVPB Q18H [facility] Rx#: [id number] propofoL 1,000 mg In 257.575 333.679 238.293 Empty Bag 1 bag @ Titrate IV .Q0M [facility] Rx#: [id number] Tube Feeding 528 528 440 Other 60 135 60 Output: Urine 1715 847 665 Other: Voiding Method Indwelling Catheter Indwelling Catheter Indwelling Catheter ABP, PAP, CO, CI - Last Documented Arterial Blood Pressure 119/54 - Labs CBC & Chem 7: 02/04/21 05:15 02/04/21 05:15 Labs: Abnormal Lab Results - Last 24 Hours (Table) 02/03/21 02/03/21 02/03/21 Range/Units 17:10 17:55 19:10 WBC (3.8-10.6) k/uL RBC (4.30-5.90) m/uL Hgb (13.0-17.5) gm/dL Hct (39.0-53.0) % Plt Count (150-450) k/uL Neutrophils # (1.3-7.7) k/uL Monocytes # (0-1.0) k/uL APTT (22.0-30.0) sec Fibrinogen (200-500) mg/dL ABG pH (7.35-7.45) ABG pCO2 (35-45) mmHg ABG pO2 (83-108) mmHg ABG HCO3 (21-25) mmol/L ABG Total CO2 (19-24) mmol/L Chloride (98-107) mmol/L BUN (9-20) mg/dL Creatinine (0.66-1.25) mg/dL Glucose (74-99) mg/dL POC Glucose (mg/dL) 250 H 228 H 215 H (75-99) mg/dL Magnesium (1.6-2.3) mg/dL Lactate Dehydrogenase (313-618) U/L 02/03/21 02/03/21 02/03/21 Range/Units 19:58 21:01 21:56 WBC (3.8-10.6) k/uL RBC (4.30-5.90) m/uL Hgb (13.0-17.5) gm/dL Hct (39.0-53.0) % Plt Count (150-450) k/uL Neutrophils # (1.3-7.7) k/uL Monocytes # (0-1.0) k/uL APTT (22.0-30.0) sec Fibrinogen 748 H (200-500) mg/dL ABG pH (7.35-7.45) ABG pCO2 (35-45) mmHg ABG pO2 (83-108) mmHg ABG HCO3 (21-25) mmol/L ABG Total CO2 (19-24) mmol/L Chloride (98-107) mmol/L BUN (9-20) mg/dL Creatinine (0.66-1.25) mg/dL Glucose (74-99) mg/dL POC Glucose (mg/dL) 208 H 201 H (75-99) mg/dL Magnesium (1.6-2.3) mg/dL Lactate Dehydrogenase (313-618) U/L 02/03/21 02/03/21 02/03/21 Range/Units 21:56 22:08 22:49 WBC (3.8-10.6) k/uL RBC (4.30-5.90) m/uL Hgb (13.0-17.5) gm/dL Hct (39.0-53.0) % Plt Count (150-450) k/uL Neutrophils # (1.3-7.7) k/uL Monocytes # (0-1.0) k/uL APTT (22.0-30.0) sec Fibrinogen (200-500) mg/dL ABG pH (7.35-7.45) ABG pCO2 (35-45) mmHg ABG pO2 (83-108) mmHg ABG HCO3 (21-25) mmol/L ABG Total CO2 (19-24) mmol/L Chloride (98-107) mmol/L BUN (9-20) mg/dL Creatinine (0.66-1.25) mg/dL Glucose (74-99) mg/dL POC Glucose (mg/dL) 196 H 164 H (75-99) mg/dL Magnesium (1.6-2.3) mg/dL Lactate Dehydrogenase 4599 H (313-618) U/L 02/03/21 02/04/21 02/04/21 Range/Units 23:50 01:03 01:58 WBC (3.8-10.6) k/uL RBC (4.30-5.90) m/uL Hgb (13.0-17.5) gm/dL Hct (39.0-53.0) % Plt Count (150-450) k/uL Neutrophils # (1.3-7.7) k/uL Monocytes # (0-1.0) k/uL APTT (22.0-30.0) sec Fibrinogen (200-500) mg/dL ABG pH (7.35-7.45) ABG pCO2 (35-45) mmHg ABG pO2 (83-108) mmHg ABG HCO3 (21-25) mmol/L ABG Total CO2 (19-24) mmol/L Chloride (98-107) mmol/L BUN (9-20) mg/dL Creatinine (0.66-1.25) mg/dL Glucose (74-99) mg/dL POC Glucose (mg/dL) 205 H 190 H 203 H (75-99) mg/dL Magnesium (1.6-2.3) mg/dL Lactate Dehydrogenase (313-618) U/L 02/04/21 02/04/21 02/04/21 Range/Units 02:50 03:06 04:10 WBC (3.8-10.6) k/uL RBC (4.30-5.90) m/uL Hgb (13.0-17.5) gm/dL Hct (39.0-53.0) % Plt Count (150-450) k/uL Neutrophils # (1.3-7.7) k/uL Monocytes # (0-1.0) k/uL APTT (22.0-30.0) sec Fibrinogen (200-500) mg/dL ABG pH (7.35-7.45) ABG pCO2 (35-45) mmHg ABG pO2 (83-108) mmHg ABG HCO3 (21-25) mmol/L ABG Total CO2 (19-24) mmol/L Chloride (98-107) mmol/L BUN (9-20) mg/dL Creatinine (0.66-1.25) mg/dL Glucose (74-99) mg/dL POC Glucose (mg/dL) 204 H 219 H 194 H (75-99) mg/dL Magnesium (1.6-2.3) mg/dL Lactate Dehydrogenase (313-618) U/L 02/04/21 02/04/21 02/04/21 Range/Units 05:15 05:15 05:15 WBC 16.1 H (3.8-10.6) k/uL RBC 3.21 L (4.30-5.90) m/uL Hgb 10.2 L (13.0-17.5) gm/dL Hct 29.3 L (39.0-53.0) % Plt Count 127 L (150-450) k/uL Neutrophils # 12.0 H (1.3-7.7) k/uL Monocytes # 1.2 H (0-1.0) k/uL APTT 47.8 H (22.0-30.0) sec Fibrinogen 765 H (200-500) mg/dL ABG pH (7.35-7.45) ABG pCO2 (35-45) mmHg ABG pO2 (83-108) mmHg ABG HCO3 (21-25) mmol/L ABG Total CO2 (19-24) mmol/L Chloride 109 H (98-107) mmol/L BUN 66 H (9-20) mg/dL Creatinine 1.67 H (0.66-1.25) mg/dL Glucose 164 H (74-99) mg/dL POC Glucose (mg/dL) (75-99) mg/dL Magnesium 2.7 H (1.6-2.3) mg/dL Lactate Dehydrogenase 4528 H (313-618) U/L 02/04/21 02/04/21 02/04/21 Range/Units 05:15 05:16 06:20 WBC (3.8-10.6) k/uL RBC (4.30-5.90) m/uL Hgb (13.0-17.5) gm/dL Hct (39.0-53.0) % Plt Count (150-450) k/uL Neutrophils # (1.3-7.7) k/uL Monocytes # (0-1.0) k/uL APTT (22.0-30.0) sec Fibrinogen (200-500) mg/dL ABG pH 7.52 H (7.35-7.45) ABG pCO2 32 L (35-45) mmHg ABG pO2 69 L (83-108) mmHg ABG HCO3 26 H (21-25) mmol/L ABG Total CO2 27 H (19-24) mmol/L Chloride (98-107) mmol/L BUN (9-20) mg/dL Creatinine (0.66-1.25) mg/dL Glucose (74-99) mg/dL POC Glucose (mg/dL) 182 H 187 H (75-99) mg/dL Magnesium (1.6-2.3) mg/dL Lactate Dehydrogenase (313-618) U/L 02/04/21 02/04/21 02/04/21 Range/Units 06:58 08:25 09:05 WBC (3.8-10.6) k/uL RBC (4.30-5.90) m/uL Hgb (13.0-17.5) gm/dL Hct (39.0-53.0) % Plt Count (150-450) k/uL Neutrophils # (1.3-7.7) k/uL Monocytes # (0-1.0) k/uL APTT (22.0-30.0) sec Fibrinogen (200-500) mg/dL ABG pH (7.35-7.45) ABG pCO2 (35-45) mmHg ABG pO2 (83-108) mmHg ABG HCO3 (21-25) mmol/L ABG Total CO2 (19-24) mmol/L Chloride (98-107) mmol/L BUN (9-20) mg/dL Creatinine (0.66-1.25) mg/dL Glucose (74-99) mg/dL POC Glucose (mg/dL) 184 H 170 H 176 H (75-99) mg/dL Magnesium (1.6-2.3) mg/dL Lactate Dehydrogenase (313-618) U/L 02/04/21 02/04/21 02/04/21 Range/Units 10:04 11:15 11:36 WBC (3.8-10.6) k/uL RBC (4.30-5.90) m/uL Hgb (13.0-17.5) gm/dL Hct (39.0-53.0) % Plt Count (150-450) k/uL Neutrophils # (1.3-7.7) k/uL Monocytes # (0-1.0) k/uL APTT (22.0-30.0) sec Fibrinogen (200-500) mg/dL ABG pH (7.35-7.45) ABG pCO2 (35-45) mmHg ABG pO2 (83-108) mmHg ABG HCO3 (21-25) mmol/L ABG Total CO2 (19-24) mmol/L Chloride (98-107) mmol/L BUN (9-20) mg/dL Creatinine (0.66-1.25) mg/dL Glucose (74-99) mg/dL POC Glucose (mg/dL) 170 H 176 H 186 H (75-99) mg/dL Magnesium (1.6-2.3) mg/dL Lactate Dehydrogenase (313-618) U/L 02/04/21 02/04/21 Range/Units 13:47 14:42 WBC (3.8-10.6) k/uL RBC (4.30-5.90) m/uL Hgb (13.0-17.5) gm/dL Hct (39.0-53.0) % Plt Count (150-450) k/uL Neutrophils # (1.3-7.7) k/uL Monocytes # (0-1.0) k/uL APTT (22.0-30.0) sec Fibrinogen (200-500) mg/dL ABG pH (7.35-7.45) ABG pCO2 (35-45) mmHg ABG pO2 (83-108) mmHg ABG HCO3 (21-25) mmol/L ABG Total CO2 (19-24) mmol/L Chloride (98-107) mmol/L BUN (9-20) mg/dL Creatinine (0.66-1.25) mg/dL Glucose (74-99) mg/dL POC Glucose (mg/dL) 182 H 158 H (75-99) mg/dL Magnesium (1.6-2.3) mg/dL Lactate Dehydrogenase (313-618) U/L Microbiology - Last 24 Hours (Table) 02/02/21 20:50 Gram Stain - Preliminary Sputum Sputum Culture - Preliminary Presumptive Staph aureus 02/01/21 06:36 Blood Culture - Preliminary Blood No Growth after 72 hours
[2021-02-04 16:16] LABS: Glucose,Whole Blood 199 mg/dL (75-99)
[2021-02-04 17:16] LABS: Glucose,Whole Blood 178 mg/dL (75-99)
[2021-02-04 18:31] LABS: Glucose,Whole Blood 157 mg/dL (75-99)
[2021-02-04 20:02] LABS: Glucose,Whole Blood 187 mg/dL (75-99)
[2021-02-04 21:00] LABS: Glucose,Whole Blood 169 mg/dL (75-99)
[2021-02-04] MEDS: ACETAMINOPHEN TAB 325 MG TAB PO PRN (21:45)
[2021-02-04 22:13] LABS: Glucose,Whole Blood 178 mg/dL (75-99)
[2021-02-04 23:08] LABS: Glucose,Whole Blood 181 mg/dL (75-99)
[2021-02-04] MEDS: SODIUM CHLORIDE 0.9% 1,000 ML IV SCH (23:08)
[2021-02-04 23:57] LABS: Glucose,Whole Blood 198 mg/dL (75-99)
[2021-02-05] MEDS ORDERED: SALINE 1 500ML.BAG with HEPARIN SODIUM,PORCINE/NS/PF 1,000 UNIT INTRAARTER PRN (00:51)
[2021-02-05 00:59] LABS: Glucose,Whole Blood 163 mg/dL (75-99)
[2021-02-05 02:00] LABS: Glucose,Whole Blood 160 mg/dL (75-99)
[2021-02-05 03:03] LABS: Glucose,Whole Blood 141 mg/dL (75-99)
[2021-02-05 03:55] LABS: Glucose,Whole Blood 154 mg/dL (75-99)
[2021-02-05 04:10] LABS: Basophils # (A) 0.1 k/uL (0-0.2); Basophils % (A) 0 %; Eosinophils # (A) 0.1 k/uL (0-0.7); Eosinophils % (A) 0 %; HCT 28.8 % (39.0-53.0); Lymphocytes # (A) 2.5 k/uL (1.0-4.8); Lymphocytes % (A) 13 %; MCH 31.8 pg (25.0-35.0); MCHC 34.7 g/dL (31.0-37.0); MCV 91.6 fL (80.0-100.0); Mean Platelet Volume 11.3; Monocytes # (A) 1.5 k/uL (0-1.0); Monocytes % (A) 8 %; Neutrophils # (A) 13.9 k/uL (1.3-7.7); Neutrophils % (A) 75 %; Platelet Count 114 k/uL (150-450); RBC 3.14 m/uL (4.30-5.90); RDW 14.4 % (11.5-15.5); WBC 18.7 k/uL (3.8-10.6)
[2021-02-05 04:30] LABS: Potassium 3.4 mmol/L (3.5-5.1)
[2021-02-05 04:31] LABS: Calcium 8.4 mg/dL (8.4-10.2); Magnesium 2.9 mg/dL (1.6-2.3)
[2021-02-05 04:44] LABS: ABG Base Excess 1.6 mmol/L; ABG HCO3 24 mmol/L (21-25); ABG Oxygen Saturation 95.8 % (94-97); ABG PCO2 29 mmHg (35-45); ABG PH 7.53 (7.35-7.45); ABG PO2 75 mmHg (83-108); ABG TCO2 25 mmol/L (19-24); Allen Test Performed? Yes
[2021-02-05 05:03] LABS: Glucose,Whole Blood 130 mg/dL (75-99)
[2021-02-05] MEDS: POTASSIUM CHLORIDE 20 MEQ in WATER FOR INJECTION 1 100ML.BAG IVPB SCH ×3 (05:04→08:55)
[2021-02-05 05:53] LABS: Glucose,Whole Blood 190 mg/dL (75-99)
[2021-02-05] MEDS: INSULIN REGULAR 100 UNIT in SODIUM CHLORIDE 0.9% 100 ML IV SCH ×2 (06:05→14:29)
[2021-02-05] MEDS: CEFEPIME 2 GM in SODIUM CHLORIDE 0.9% 100 ML IVPB SCH ×2 (06:11→18:50)
[2021-02-05 06:27] LABS: Partial Thromboplastin Time 50.8 sec (22.0-30.0); Prothrombin Time 10.7 sec (9.0-12.0)
[2021-02-05 06:53] LABS: Glucose,Whole Blood 199 mg/dL (75-99)
[2021-02-05 08:28] LABS: Glucose,Whole Blood 164 mg/dL (75-99)
[2021-02-05] MEDS: TICAGRELOR 90 MG TAB PO SCH ×2 (08:55→21:09)
[2021-02-05] MEDS: ATORVASTATIN 80 MG TAB PO SCH (08:55)
[2021-02-05] MEDS: VANCOMYCIN 1,750 MG in SODIUM CHLORIDE 0.9% 500 ML 500 ML IVPB SCH ×2 (08:55→23:31)
[2021-02-05] MEDS: ASPIRIN 81 MG PO SCH (08:55)
[2021-02-05] MEDS: LEVOTHYROXINE IVP 100 MCG/5 ML VIAL IV SCH (08:56)
[2021-02-05] MEDS: CHLORHEXIDINE GLUCONATE 15 ML CUP MUCOUS MEM SCH ×2 (08:57→21:09)
[2021-02-05] MEDS: FUROSEMIDE 10 MG/ML 4 ML VIAL IV SCH ×2 (08:57→21:09)
[2021-02-05] MEDS: METOPROLOL TARTRATE 12.5 MG TAB PO SCH ×2 (09:17→21:09)
[2021-02-05 09:19] LABS: Glucose,Whole Blood 152 mg/dL (75-99)
[2021-02-05] MEDS ORDERED: LIDOCAINE 1% INJ 10MG/ML (20 ML MDV) ONE (09:49)
--- NOTE | 2021-02-05 09:52 | P.PN ---
Subjective Progress Note Date: 02/05/21 Principal diagnosis: ST segment elevation myocardial infarction, respiratory failure. Cardiogenic shock and acute hypoxic respiratory failure secondary to cardiogenic shock This is a 70-year-old white male, with history of hypertension, diabetes, dyslipidemia, chronic neck pain, depression, chronic nicotine dependence, no previous history of documented coronary artery disease. Patient came into the hospital with symptoms of acute shortness of breath. Patient woke up this m orning and he was complaining of shortness of breath, he had no dizziness no palpitation no nausea no vomiting or diaphoresis. However the patient was noted to be hector in color and clammy. EKG upon his initial presentation showed ST elevation in the anterolateral leads. Chest x-ray showed evidence of congestive heart failure. Troponin was 1.89. Patient was seen by cardiology and he was noted to have acute anterior lateral stress ST elevated myocardial infarction, hence the patient was taken straight to cardiac catheterization. While in the cardiac catheterization lab, patient underwent stenting and apparently during the cardiac catheterization patient went into full cardiogenic shock, patient was intubated and placed on mechanical ventilation, and an impella device was placed. The device was placed in the right groin through the femoral artery. Patient was transferred to the ICU on mechanical ventilation, and I was asked to see him on consultation. Patient was placed on tidal volume of 450, FiO2 of 100%, EPAP of 10, and assist control rate of 30. Chest x-ray showed evidence of pulmonary edema ABG showed a pO2 of 78 pCO2 of 51 pH of 7.23. Will increase to follow volume to 500 and will likely increase PEEP to 12. on 02/01/2021 patient seen in follow-up in the intensive care unit. He remains sedated, intubated on mechanical ventilator, with assist control mode of vent ilation rate of 30, tidal vital was 500, FiO2 of 50% and PEEP of 12. This point his blood gases show pO2 of 117, pCO2 31, and pH of 7.43, and this was done on FiO2 of 50%, today's chest x-ray has been reviewed showing improving perihilar and basilar infiltrates. Hemodynamically patient remains on Impella device. He is on 0.9 normal saline at 20 ML per hour, his Diprivan and is at 35 mics per ki lo per minute, and Lasix infusion at 10 mg per hour, his heparin infusion is at weight-based protocol. He is in negative fluid balance, -1009 mL over the last 24 hours. Today's labs show improvement of patient's white blood cell count down to 14.6, hemoglobin is 13.2, CMP showed sodium of 134, potassium is 4.0, chloride is 107, CO2 is 20, BUN of 30, creatinine is 1.55. Patient's second troponin increased to 149. The heart rhythm is sinus rhythm on the monitor with a rate of 68 BPM, not requiring any vasopressor support at this time, we added empiric antibiotics in the form of cefepime and vancomycin for empiric antibiotic coverage especially in view of elevated white count and multiple i ndwelling lines. patient was tested for COVID-19 via PCR test and was found to be negative. Patient continues on Lasix, and is producing urine output in the order of 250-400 mL per hour. Patient also remains on aspirin 81 mg and Brilinta. His echocardiogram showed severely impaired left acute systolic function with an EF of 25-30% On 02/02/2021, patient remains in the ICU, intubated and mechanically ventilated. Patient continues to have the left ventricular assist device in place. Remains on Lasix drip at 10 mg per hour remains on propofol at 45 mcg/kg/m, he is also on heparin and antiplatelet therapy/UL. He is on vital hp 30 mL per hour. His ventilator settings are assist control rate of 30 volume of 500 FiO2 45% PEEP is at 8. ABG showed a pO2 of 78 pCO2 of 32 pH of 7.51. Sugars are running a bit high, hence I recommended adding Levemir insulin 20 units daily. And continue A ccu-Cheks. Cardiology is planning to keep the ventricular assist device for another day, and we will hold on plans to wean and exited the patient on to the impact has been removed. Labs were reviewed today, WBC count is 16.9 hemoglobin is 12.4. Potassium is low at 2.9 be corrected as per protocol. BUN is 39 and creatinine is 1.61, slightly worse compared to the last couple of days. LDH is over 5000. Patient is a negative balance about 3-1/2 L since he was admitted to the ICU, chest x-ray continues to show mild interstitial edema bilaterally. Patient was reevaluated today on 02/03/2021, remains in the ICU, intubated and mechanically ventilated. Remains on Lasix drip, propofol at 45 mcg/kg/m, Lasix 10 mg per hour heparin drip, he is also on vital Hp/enteral feeding. Patient remains on cefepime. His ventilator settings are assist control rate of 30 tidal volumes 500 FiO2 45% PEEP was 8 and I cut it down to 5. ABG showed a pO2 of 79 pCO2 of 33 pH of 7.5 to chest x-ray continues to show some mild pulmonary edema, and left lower lobe atelectasis, possibly a small left-sided pleural effusion. Patient had a negative balance of 2.5 L over the last 24 hours. Remains on impella at p8, minimal oozing at the right femoral site noted, not considered clinically significant. No evidence of any leg ischemia. Hydralazine was started yesterday to improve his mean arterial pressure to the low 70s. Creatinine is improving, it is down to 1.58 today. WBC count is 17.5 hemoglobin is 11.7. PTT is 46. Remains on heparin. LDH is elevated at 5863 Progress note dated 02/04/2021. This is a 70-year-old male, admitted on January 31, with an ST segment elevation myocardial infarction. He came to the ICU on January 31 for respiratory failure, and was intubated on January 31. He had an Impella device inserted on January 31. The patient remains on the mechanical ventilator. Once the Impella device is removed, the patient could likely be weaned and extubated. Currently, he is on the volume assist control mode, rate of 30, tidal volume 500, FiO2 35%, and a PEEP of 5. Blood gases show a PaO2 of 69, PaCO2 32, and a pH is 7.52. The patient remains on IV heparin via weightbase protocol, insulin drip at 11 units an hour, propofol at 45 mcg/kg/m, saline at 20 mL an hour, and vital high prote in for nutrition, at 44 mL an hour, which is goal. White count 16.1, hemoglobin 10.2, hematocrit 29.3, and platelet count 127,000. PT 10.3, INR 1.0, PTT 47.8, and fibrinogen 765. Sodium 140, potassium 3.7, chlorides 109, CO2 28, anion gap is 3, BUN 66, and creatinine 1.67. Chest x-ray shows evidence of mild interstitial edema in my opinion. Progress note dated 02/05/2021. 70-year-old male, admitted on January 31, with an ST segment elevation myocardial infarction. The patient came to the intensive care unit on January 31 for respiratory failure and was intubated on January 31. He still has an Impella device in place. Apparently, the patient is going back to the [employer] today. He remains on the mechanical ventilator. He is on the volume assist control mode rate of 30, tidal volume 500, FiO2 35%, and PEEP of 5. Blood gases show a PaO2 of 75, PaCO2 of 29, pH is 7.53. This blood gases consistent with respiratory alkalosis. He remains on heparin via weightbase protocol, propofol at 50 mics per kilogram per minute, saline at KVO, dobutamine at 2.5 mcg/kg/m, insulin at 13 units an hour, and norepinephrine at 3 mcg/m. Vital high protein is at goal. 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 White count 18.7, hemoglobin 10, hematocrit 28.8, platelet count 114,000. PTT is 50.8. Sodium is 141, potassium 3.4, chlorides 109, CO2 25, anion gap 7, BUN 66, and creatinine 1.51. LDH is 4081. A sputum from February 02 showing presumptive staph aureus. Sensitivities are pending. The patient remains on cefepime and vancomycin. Chest x-ray looks pretty good safer either a left-sided pleural effusion or left basilar atelectasis. Objective - Vital Signs Vital signs: Vital Signs Temp 101.4 F H 02/05/21 09:00 Pulse 74 02/05/21 09:00 Resp 30 H 02/05/21 09:00 BP 95/70 02/05/21 09:00 Pulse Ox 96 02/05/21 09:00 Intake & Output 02/04/21 02/05/21 02/05/21 18:59 06:59 18:59 Intake Total 2353.104 1892.792 370.872 Output Total 940 1715 270 Balance 1413.104 177.792 100.872 Weight 99 kg 104 kg Intake: IV 532 806 98 Cefepime 2 gm In Sodium 100 200 Chloride 0.9% 100 ml @ 25 mls/hr IVPB Q12H [facility] Rx# :[id number] Heparin Sodium,Porcine 12 120 120 10 ,500 unit In Dextrose 5% in Water 500 ml @ Per Protocol IV DIRECTED [facility] Rx#:[id number] Potassium Chloride 20 meq 200 50 In Water For Injection 1 100ml.bag @ 50 mls/hr IVPB Q2H [facility] Rx#: [id number] Pressure Bag 72 66 18 Sodium Chloride 0.9% 1, 240 220 20 000 ml @ 20 mls/hr IV . Q24H [facility] Rx#:[id number] Intake, IV Titration 1189.104 762.792 272.872 Amount Heparin Sod,Pork in 0.45% 233.077 NaCl 25,000 unit In 0.45 % NaCl 1 250ml.bag @ 7.7 UNIT/KG/HR 9.57 mls/hr IV .Q24H [facility] Rx#:[id number] Insulin Regular 100 unit 124.516 122.682 21.227 In Sodium Chloride 0.9% 100 ml @ Per Protocol IV .Q0M [facility] Rx#:[id number] Norepinephrine 8 mg In 37.195 60.533 Sodium Chloride 0.9% 250 ml @ 0.05 MCG/KG/MIN 9. 578 mls/hr IV .Q24H [facility] Rx#:[id number] Potassium Chloride 10 meq 200 In Water For Injection 1 100ml.bag @ 100 mls/hr IVPB Q1H [facility] Rx#: [id number] Vancomycin 1,750 mg In 500 167 Sodium Chloride 0.9% 500 ml 500 ml @ 167 mls/hr IVPB Q18H [facility] Rx#: [id number] propofoL 1,000 mg In 327.393 346.500 84.645 Empty Bag 1 bag @ Titrate IV .Q0M [facility] Rx#: [id number] Tube Feeding 572 264 Other 60 60 Output: Urine 940 1715 270 Other: Voiding Method Indwelling Catheter Indwelling Catheter ABP, PAP, CO, CI - Last Documented Arterial Blood Pressure 101/64 - Exam No acute distress, sedated, with an orally placed endotracheal tube. Saturations are 96%. HEENT examination is grossly unremarkable. Neck supple. Full range of motion. No adenopathy thyromegaly or neck vein distention. Cardiovascular examination reveals regular rhythm rate. S1-S2 normal. No S3 or S4. No discernible murmur noted. Heart rate 74 bpm. Heart sounds are distant. Lungs reveal bilateral scattered rhonchi and a few basilar crackles. No wheezes. Breath sounds equal bilaterally. Abdomen soft bowel sounds are heard. No masses or tenderness. Extremities are intact. Minimal lower extremity edema. No cyanosis or clubbing. Skin is without rash or lesion. Neurologic examination cannot be adequately assessed at this time given the patient's current level of sedation. - Labs CBC & Chem 7: 02/05/21 03:55 02/05/21 03:55 Labs: Abnormal Lab Results - Last 24 Hours (Table) 02/04/21 02/04/21 02/04/21 Range/Units 10:04 11:15 11:36 WBC (3.8-10.6) k/uL RBC (4.30-5.90) m/uL Hgb (13.0-17.5) gm/dL Hct (39.0-53.0) % Plt Count (150-450) k/uL Neutrophils # (1.3-7.7) k/uL Monocytes # (0-1.0) k/uL APTT (22.0-30.0) sec Fibrinogen (200-500) mg/dL ABG pH (7.35-7.45) ABG pCO2 (35-45) mmHg ABG pO2 (83-108) mmHg ABG Total CO2 (19-24) mmol/L Potassium (3.5-5.1) mmol/L Chloride (98-107) mmol/L BUN (9-20) mg/dL Creatinine (0.66-1.25) mg/dL Glucose (74-99) mg/dL POC Glucose (mg/dL) 170 H 176 H 186 H (75-99) mg/dL Magnesium (1.6-2.3) mg/dL Lactate Dehydrogenase (313-618) U/L 02/04/21 02/04/21 02/04/21 Range/Units 13:47 14:42 16:14 WBC (3.8-10.6) k/uL RBC (4.30-5.90) m/uL Hgb (13.0-17.5) gm/dL Hct (39.0-53.0) % Plt Count (150-450) k/uL Neutrophils # (1.3-7.7) k/uL Monocytes # (0-1.0) k/uL APTT (22.0-30.0) sec Fibrinogen (200-500) mg/dL ABG pH (7.35-7.45) ABG pCO2 (35-45) mmHg ABG pO2 (83-108) mmHg ABG Total CO2 (19-24) mmol/L Potassium (3.5-5.1) mmol/L Chloride (98-107) mmol/L BUN (9-20) mg/dL Creatinine (0.66-1.25) mg/dL Glucose (74-99) mg/dL POC Glucose (mg/dL) 182 H 158 H 199 H (75-99) mg/dL Magnesium (1.6-2.3) mg/dL Lactate Dehydrogenase (313-618) U/L 02/04/21 02/04/21 02/04/21 Range/Units 16:21 16:21 17:14 WBC (3.8-10.6) k/uL RBC (4.30-5.90) m/uL Hgb (13.0-17.5) gm/dL Hct (39.0-53.0) % Plt Count (150-450) k/uL Neutrophils # (1.3-7.7) k/uL Monocytes # (0-1.0) k/uL APTT (22.0-30.0) sec Fibrinogen 714 H (200-500) mg/dL ABG pH (7.35-7.45) ABG pCO2 (35-45) mmHg ABG pO2 (83-108) mmHg ABG Total CO2 (19-24) mmol/L Potassium (3.5-5.1) mmol/L Chloride (98-107) mmol/L BUN (9-20) mg/dL Creatinine (0.66-1.25) mg/dL Glucose (74-99) mg/dL POC Glucose (mg/dL) 178 H (75-99) mg/dL Magnesium (1.6-2.3) mg/dL Lactate Dehydrogenase 4276 H (313-618) U/L 02/04/21 02/04/21 02/04/21 Range/Units 18:29 20:00 20:59 WBC (3.8-10.6) k/uL RBC (4.30-5.90) m/uL Hgb (13.0-17.5) gm/dL Hct (39.0-53.0) % Plt Count (150-450) k/uL Neutrophils # (1.3-7.7) k/uL Monocytes # (0-1.0) k/uL APTT (22.0-30.0) sec Fibrinogen (200-500) mg/dL ABG pH (7.35-7.45) ABG pCO2 (35-45) mmHg ABG pO2 (83-108) mmHg ABG Total CO2 (19-24) mmol/L Potassium (3.5-5.1) mmol/L Chloride (98-107) mmol/L BUN (9-20) mg/dL Creatinine (0.66-1.25) mg/dL Glucose (74-99) mg/dL POC Glucose (mg/dL) 157 H 187 H 169 H (75-99) mg/dL Magnesium (1.6-2.3) mg/dL Lactate Dehydrogenase (313-618) U/L 02/04/21 02/04/21 02/04/21 Range/Units 22:11 22:36 22:49 WBC (3.8-10.6) k/uL RBC (4.30-5.90) m/uL Hgb (13.0-17.5) gm/dL Hct (39.0-53.0) % Plt Count (150-450) k/uL Neutrophils # (1.3-7.7) k/uL Monocytes # (0-1.0) k/uL APTT (22.0-30.0) sec Fibrinogen 734 H (200-500) mg/dL ABG pH (7.35-7.45) ABG pCO2 (35-45) mmHg ABG pO2 (83-108) mmHg ABG Total CO2 (19-24) mmol/L Potassium (3.5-5.1) mmol/L Chloride (98-107) mmol/L BUN (9-20) mg/dL Creatinine (0.66-1.25) mg/dL Glucose (74-99) mg/dL POC Glucose (mg/dL) 178 H (75-99) mg/dL Magnesium (1.6-2.3) mg/dL Lactate Dehydrogenase 4258 H (313-618) U/L 02/04/21 02/04/21 02/05/21 Range/Units 23:06 23:56 00:58 WBC (3.8-10.6) k/uL RBC (4.30-5.90) m/uL Hgb (13.0-17.5) gm/dL Hct (39.0-53.0) % Plt Count (150-450) k/uL Neutrophils # (1.3-7.7) k/uL Monocytes # (0-1.0) k/uL APTT (22.0-30.0) sec Fibrinogen (200-500) mg/dL ABG pH (7.35-7.45) ABG pCO2 (35-45) mmHg ABG pO2 (83-108) mmHg ABG Total CO2 (19-24) mmol/L Potassium (3.5-5.1) mmol/L Chloride (98-107) mmol/L BUN (9-20) mg/dL Creatinine (0.66-1.25) mg/dL Glucose (74-99) mg/dL POC Glucose (mg/dL) 181 H 198 H 163 H (75-99) mg/dL Magnesium (1.6-2.3) mg/dL Lactate Dehydrogenase (313-618) U/L 02/05/21 02/05/21 02/05/21 Range/Units 01:59 03:02 03:53 WBC (3.8-10.6) k/uL RBC (4.30-5.90) m/uL Hgb (13.0-17.5) gm/dL Hct (39.0-53.0) % Plt Count (150-450) k/uL Neutrophils # (1.3-7.7) k/uL Monocytes # (0-1.0) k/uL APTT (22.0-30.0) sec Fibrinogen (200-500) mg/dL ABG pH (7.35-7.45) ABG pCO2 (35-45) mmHg ABG pO2 (83-108) mmHg ABG Total CO2 (19-24) mmol/L Potassium (3.5-5.1) mmol/L Chloride (98-107) mmol/L BUN (9-20) mg/dL Creatinine (0.66-1.25) mg/dL Glucose (74-99) mg/dL POC Glucose (mg/dL) 160 H 141 H 154 H (75-99) mg/dL Magnesium (1.6-2.3) mg/dL Lactate Dehydrogenase (313-618) U/L 02/05/21 02/05/21 02/05/21 Range/Units 03:55 03:55 03:55 WBC 18.7 H (3.8-10.6) k/uL RBC 3.14 L (4.30-5.90) m/uL Hgb 10.0 L (13.0-17.5) gm/dL Hct 28.8 L (39.0-53.0) % Plt Count 114 L (150-450) k/uL Neutrophils # 13.9 H (1.3-7.7) k/uL Monocytes # 1.5 H (0-1.0) k/uL APTT 50.8 H (22.0-30.0) sec Fibrinogen 717 H (200-500) mg/dL ABG pH (7.35-7.45) ABG pCO2 (35-45) mmHg ABG pO2 (83-108) mmHg ABG Total CO2 (19-24) mmol/L Potassium 3.4 L (3.5-5.1) mmol/L Chloride 109 H (98-107) mmol/L BUN 66 H (9-20) mg/dL Creatinine 1.51 H (0.66-1.25) mg/dL Glucose 131 H (74-99) mg/dL POC Glucose (mg/dL) (75-99) mg/dL Magnesium 2.9 H (1.6-2.3) mg/dL Lactate Dehydrogenase 4081 H (313-618) U/L 02/05/21 02/05/21 02/05/21 Range/Units 04:40 05:01 05:51 WBC (3.8-10.6) k/uL RBC (4.30-5.90) m/uL Hgb (13.0-17.5) gm/dL Hct (39.0-53.0) % Plt Count (150-450) k/uL Neutrophils # (1.3-7.7) k/uL Monocytes # (0-1.0) k/uL APTT (22.0-30.0) sec Fibrinogen (200-500) mg/dL ABG pH 7.53 H (7.35-7.45) ABG pCO2 29 L (35-45) mmHg ABG pO2 75 L (83-108) mmHg ABG Total CO2 25 H (19-24) mmol/L Potassium (3.5-5.1) mmol/L Chloride (98-107) mmol/L BUN (9-20) mg/dL Creatinine (0.66-1.25) mg/dL Glucose (74-99) mg/dL POC Glucose (mg/dL) 130 H 190 H (75-99) mg/dL Magnesium (1.6-2.3) mg/dL Lactate Dehydrogenase (313-618) U/L 02/05/21 02/05/21 02/05/21 Range/Units 06:52 08:26 09:18 WBC (3.8-10.6) k/uL RBC (4.30-5.90) m/uL Hgb (13.0-17.5) gm/dL Hct (39.0-53.0) % Plt Count (150-450) k/uL Neutrophils # (1.3-7.7) k/uL Monocytes # (0-1.0) k/uL APTT (22.0-30.0) sec Fibrinogen (200-500) mg/dL ABG pH (7.35-7.45) ABG pCO2 (35-45) mmHg ABG pO2 (83-108) mmHg ABG Total CO2 (19-24) mmol/L Potassium (3.5-5.1) mmol/L Chloride (98-107) mmol/L BUN (9-20) mg/dL Creatinine (0.66-1.25) mg/dL Glucose (74-99) mg/dL POC Glucose (mg/dL) 199 H 164 H 152 H (75-99) mg/dL Magnesium (1.6-2.3) mg/dL Lactate Dehydrogenase (313-618) U/L Microbiology - Last 24 Hours (Table) 02/01/21 06:36 Blood Culture - Preliminary Blood No Growth after 96 hours 02/02/21 20:50 Gram Stain - Preliminary Sputum Sputum Culture - Preliminary Presumptive Staph aureus Assessment and Plan Assessment: Acute ST elevation myocardial infarction, status post stenting of LAD, and placement of an Impella device on 01/31/2021. Hypoxemic respiratory failure secondary to cardiogenic shock, status post intubation and mechanical ventilation on 01/31/2021. Acute pulmonary edema secondary to myocardial infarction. Morbid obesity, with a BMI of 37.2. Benign essential hypertension. Hyperlipidemia. Tobacco dependence syndrome. History of depression. Plan: Plan dated 02/04/2021. Once the Impella device is removed, the patient could likely be weaned and extubated. We will continue to follow. Additional recommendations and suggestions are forthcoming. The patient remains on IV heparin, insulin, and propofol. The patient is being enterally fed at goal. We will continue to follow make recommendations were appropriate. Prognosis is guarded. Plan dated 02/05/2021. The patient is going back to the catheterization laboratory today. Once the Impella device is removed, we can work on getting the patient weaned and extubated. The patient remains on IV heparin, propofol, dobutamine, insulin, and norepinephrine at 3 mcg/m. 2 feedings are on hold. Additional recommendations and suggestions are forthcoming. Prognosis is guarded. We will continue to follow make recommendations where appropriate. Time with Patient: Greater than 30
[2021-02-05 09:56] LABS: Glucose,Whole Blood 163 mg/dL (75-99)
--- NOTE | 2021-02-05 09:58 | XR ---
EXAMINATION TYPE: XR chest 1V portable DATE OF EXAM: 02/05/2021 COMPARISON: Chest x-ray 02/04/2021 HISTORY: Intubated TECHNIQUE: Single frontal view of the chest is obtained. FINDINGS: Endotracheal tube, orogastric tube, intra-aortic balloon pump are again noted. No evident pneumothorax. Retrocardiac density persists. Heart remains enlarged. IMPRESSION: There is not significant interval change. Probable left pleural effusion and associated atelectasis, correlate to exclude pneumonia versus edema
[2021-02-05] MEDS ORDERED: SODIUM CHLORIDE 0.9% 500 ML 500 ML IV ONE (10:10)
[2021-02-05] MEDS ORDERED: IOPAMIDOL-370 100ML BTL INJ ONE (11:13)
[2021-02-05] MEDS ORDERED: RX INFO: IV CONTRAST WAS GIVEN 1 EACH MISC MISCELLANE PRN (11:23)
[2021-02-05] MEDS ORDERED: SODIUM CHLORIDE 0.9% 1,000 ML IV SCH (11:30)
[2021-02-05 12:30] LABS: Glucose,Whole Blood 137 mg/dL (75-99)
--- NOTE | 2021-02-05 13:36 | P.PN ---
Subjective Progress Note Date: 02/05/21 (Today left ventricular assist removed and no further invasive procedure.) Progress note date of service 02/02/2021. Dictation by Dr. Celeste. ICU to 60 bed 1. Laboratory: WBC 18.7, hemoglobin of 10, hematocrit 28.8, platelet count 114. PTT 50.8, fibrinogen 717, A-line pH of 7.53, pCO2 29, PaO2 75, HCO3 24, total CO2 25 oxygen saturation 95.8, base excess 1.6, FiO2 35%. Sodium 141, potassium 3.4 chloride 109 carbon dioxide 25, BUN 66. Seen 1.51 GFR 47, blood sugar blood glucose 131 he is on insulin drip with Dr. Jensen well- controlled glucose. LDH 4081. Patient sedated, intubated with the mechanical ventilation, NG tube, feeding tube, Banda catheter, noncommunicating sensitivity cardiac cath and on arrival to ICU due to the effects endotracheal tube. Left ventricular assist has been removed today. Culture of the sputum found to be staph aureus methicillin-resistant patient started on vancomycin yesterday and he received this morning. Vital signs today his temperature 101.4 heart rate 74 respiratory rate 30 per minute on the vent, he has been supported with vasodepressor IV drip with his b lood pressure still borderline 95/70 and 90/over 70 steadies stable and with perfusion his pulses in the dorsalis pedis and posterior dorsalis by Doppler at bedside was positive. Head was normocephalic and atraumatic. Neck was supple Chest radiated with the ventilator no wheezes or rhonchi Heart sinus and supported was vasoactive amine Abdomen obese positive bowel sounds with the NG tube and feeding tube through the oral pharynx. Extremities no edema. Neurologically patient heavy sedated Patient on antibiotic cefepime 2 g every 12 for IV piggyback, dobutamine/dextrose IV rate of 2.5 mcg/kg/m, Lasix IV every 12 R 40 mg, heparin IV for anticoagulation. Aspirin 81 mg and brilinta Demerol antiplatelet with the stent in the LAD happened on admission with the cardiac cath Insulin drip for controlling blood glucose. Propofol/Diprivan he is on potassium replacement. Currently vancomycin 1750 mg over 3 however followed by peak and trough and pharmacy monitoring Norepinephrine 8 mg and the dose which is labeled had 0.03 mcg/kg/m. Assessment: #1 acute coronary artery syndrome #2 acute transmural MT #3 status post cardiac cath and stent of LAD #4 three-vessel disease. #5 hypertension #6 history of COPD and nicotine dependence. 6 hyperlipidemia #7 diabetes mellitus2 #8 depression and bipolar. Benign chronic kidney disease stage LXX admitted with acute kidney injury with the prerenal in nature, with drop of his ejection fraction from 60-25. Plan: #1 continue the vancomycin No. 2 patient followed by ICU critical and pulmonary Dr. Mason. Followed by the chest pain coordinator Dr. Jones/Dr. Grier. Continue monitor the parameter Objective - Vital Signs Vital signs: Vital Signs Temp 101.4 F H 02/05/21 09:00 Pulse 65 02/05/21 12:15 Resp 30 H 02/05/21 12:15 BP 99/59 02/05/21 12:15 Pulse Ox 96 02/05/21 12:15 Intake & Output 02/04/21 02/05/21 02/05/21 18:59 06:59 18:59 Intake Total 2353.104 1892.792 855.868 Output Total 940 1715 620 Balance 1413.104 177.792 235.868 Weight 99 kg 104 kg Intake: IV 532 806 204 Cefepime 2 gm In Sodium 100 200 Chloride 0.9% 100 ml @ 25 mls/hr IVPB Q12H [facility] Rx# :[id number] Heparin Sodium,Porcine 12 120 120 10 ,500 unit In Dextrose 5% in Water 500 ml @ Per Protocol IV DIRECTED [facility] Rx#:[id number] Potassium Chloride 20 meq 200 100 In Water For Injection 1 100ml.bag @ 50 mls/hr IVPB Q2H [facility] Rx#: [id number] Pressure Bag 72 66 24 Sodium Chloride 0.9% 1, 240 220 20 000 ml @ 20 mls/hr IV . Q24H [facility] Rx#:[id number] Intake, IV Titration 1189.104 762.792 651.868 Amount Heparin Sod,Pork in 0.45% 233.077 NaCl 25,000 unit In 0.45 % NaCl 1 250ml.bag @ 7.7 UNIT/KG/HR 9.57 mls/hr IV .Q24H [facility] Rx#:[id number] Insulin Regular 100 unit 124.516 122.682 66.223 In Sodium Chloride 0.9% 100 ml @ Per Protocol IV .Q0M [facility] Rx#:[id number] Norepinephrine 8 mg In 37.195 60.533 0 Sodium Chloride 0.9% 250 ml @ 0.05 MCG/KG/MIN 9. 578 mls/hr IV .Q24H [facility] Rx#:[id number] Potassium Chloride 10 meq 200 In Water For Injection 1 100ml.bag @ 100 mls/hr IVPB Q1H [facility] Rx#: [id number] Vancomycin 1,750 mg In 334 Sodium Chloride 0.9% 500 ml 500 ml @ 167 mls/hr IVPB Q16H [facility] Rx#: [id number] Vancomycin 1,750 mg In 500 167 Sodium Chloride 0.9% 500 ml 500 ml @ 167 mls/hr IVPB Q18H [facility] Rx#: [id number] propofoL 1,000 mg In 327.393 346.500 84.645 Empty Bag 1 bag @ Titrate IV .Q0M [facility] Rx#: [id number] Tube Feeding 572 264 Other 60 60 Output: Urine 940 1715 620 Other: Voiding Method Indwelling Catheter Indwelling Catheter Indwelling Catheter ABP, PAP, CO, CI - Last Documented Arterial Blood Pressure 106/41 - Labs CBC & Chem 7: 02/05/21 03:55 02/05/21 03:55 Labs: Abnormal Lab Results - Last 24 Hours (Table) 02/04/21 02/04/21 02/04/21 Range/Units 13:47 14:42 16:14 WBC (3.8-10.6) k/uL RBC (4.30-5.90) m/uL Hgb (13.0-17.5) gm/dL Hct (39.0-53.0) % Plt Count (150-450) k/uL Neutrophils # (1.3-7.7) k/uL Monocytes # (0-1.0) k/uL APTT (22.0-30.0) sec Fibrinogen (200-500) mg/dL ABG pH (7.35-7.45) ABG pCO2 (35-45) mmHg ABG pO2 (83-108) mmHg ABG Total CO2 (19-24) mmol/L Potassium (3.5-5.1) mmol/L Chloride (98-107) mmol/L BUN (9-20) mg/dL Creatinine (0.66-1.25) mg/dL Glucose (74-99) mg/dL POC Glucose (mg/dL) 182 H 158 H 199 H (75-99) mg/dL Magnesium (1.6-2.3) mg/dL Lactate Dehydrogenase (313-618) U/L 02/04/21 02/04/21 02/04/21 Range/Units 16:21 16:21 17:14 WBC (3.8-10.6) k/uL RBC (4.30-5.90) m/uL Hgb (13.0-17.5) gm/dL Hct (39.0-53.0) % Plt Count (150-450) k/uL Neutrophils # (1.3-7.7) k/uL Monocytes # (0-1.0) k/uL APTT (22.0-30.0) sec Fibrinogen 714 H (200-500) mg/dL ABG pH (7.35-7.45) ABG pCO2 (35-45) mmHg ABG pO2 (83-108) mmHg ABG Total CO2 (19-24) mmol/L Potassium (3.5-5.1) mmol/L Chloride (98-107) mmol/L BUN (9-20) mg/dL Creatinine (0.66-1.25) mg/dL Glucose (74-99) mg/dL POC Glucose (mg/dL) 178 H (75-99) mg/dL Magnesium (1.6-2.3) mg/dL Lactate Dehydrogenase 4276 H (313-618) U/L 02/04/21 02/04/21 02/04/21 Range/Units 18:29 20:00 20:59 WBC (3.8-10.6) k/uL RBC (4.30-5.90) m/uL Hgb (13.0-17.5) gm/dL Hct (39.0-53.0) % Plt Count (150-450) k/uL Neutrophils # (1.3-7.7) k/uL Monocytes # (0-1.0) k/uL APTT (22.0-30.0) sec Fibrinogen (200-500) mg/dL ABG pH (7.35-7.45) ABG pCO2 (35-45) mmHg ABG pO2 (83-108) mmHg ABG Total CO2 (19-24) mmol/L Potassium (3.5-5.1) mmol/L Chloride (98-107) mmol/L BUN (9-20) mg/dL Creatinine (0.66-1.25) mg/dL Glucose (74-99) mg/dL POC Glucose (mg/dL) 157 H 187 H 169 H (75-99) mg/dL Magnesium (1.6-2.3) mg/dL Lactate Dehydrogenase (313-618) U/L 02/04/21 02/04/21 02/04/21 Range/Units 22:11 22:36 22:49 WBC (3.8-10.6) k/uL RBC (4.30-5.90) m/uL Hgb (13.0-17.5) gm/dL Hct (39.0-53.0) % Plt Count (150-450) k/uL Neutrophils # (1.3-7.7) k/uL Monocytes # (0-1.0) k/uL APTT (22.0-30.0) sec Fibrinogen 734 H (200-500) mg/dL ABG pH (7.35-7.45) ABG pCO2 (35-45) mmHg ABG pO2 (83-108) mmHg ABG Total CO2 (19-24) mmol/L Potassium (3.5-5.1) mmol/L Chloride (98-107) mmol/L BUN (9-20) mg/dL Creatinine (0.66-1.25) mg/dL Glucose (74-99) mg/dL POC Glucose (mg/dL) 178 H (75-99) mg/dL Magnesium (1.6-2.3) mg/dL Lactate Dehydrogenase 4258 H (313-618) U/L 02/04/21 02/04/21 02/05/21 Range/Units 23:06 23:56 00:58 WBC (3.8-10.6) k/uL RBC (4.30-5.90) m/uL Hgb (13.0-17.5) gm/dL Hct (39.0-53.0) % Plt Count (150-450) k/uL Neutrophils # (1.3-7.7) k/uL Monocytes # (0-1.0) k/uL APTT (22.0-30.0) sec Fibrinogen (200-500) mg/dL ABG pH (7.35-7.45) ABG pCO2 (35-45) mmHg ABG pO2 (83-108) mmHg ABG Total CO2 (19-24) mmol/L Potassium (3.5-5.1) mmol/L Chloride (98-107) mmol/L BUN (9-20) mg/dL Creatinine (0.66-1.25) mg/dL Glucose (74-99) mg/dL POC Glucose (mg/dL) 181 H 198 H 163 H (75-99) mg/dL Magnesium (1.6-2.3) mg/dL Lactate Dehydrogenase (313-618) U/L 02/05/21 02/05/21 02/05/21 Range/Units 01:59 03:02 03:53 WBC (3.8-10.6) k/uL RBC (4.30-5.90) m/uL Hgb (13.0-17.5) gm/dL Hct (39.0-53.0) % Plt Count (150-450) k/uL Neutrophils # (1.3-7.7) k/uL Monocytes # (0-1.0) k/uL APTT (22.0-30.0) sec Fibrinogen (200-500) mg/dL ABG pH (7.35-7.45) ABG pCO2 (35-45) mmHg ABG pO2 (83-108) mmHg ABG Total CO2 (19-24) mmol/L Potassium (3.5-5.1) mmol/L Chloride (98-107) mmol/L BUN (9-20) mg/dL Creatinine (0.66-1.25) mg/dL Glucose (74-99) mg/dL POC Glucose (mg/dL) 160 H 141 H 154 H (75-99) mg/dL Magnesium (1.6-2.3) mg/dL Lactate Dehydrogenase (313-618) U/L 02/05/21 02/05/21 02/05/21 Range/Units 03:55 03:55 03:55 WBC 18.7 H (3.8-10.6) k/uL RBC 3.14 L (4.30-5.90) m/uL Hgb 10.0 L (13.0-17.5) gm/dL Hct 28.8 L (39.0-53.0) % Plt Count 114 L (150-450) k/uL Neutrophils # 13.9 H (1.3-7.7) k/uL Monocytes # 1.5 H (0-1.0) k/uL APTT 50.8 H (22.0-30.0) sec Fibrinogen 717 H (200-500) mg/dL ABG pH (7.35-7.45) ABG pCO2 (35-45) mmHg ABG pO2 (83-108) mmHg ABG Total CO2 (19-24) mmol/L Potassium 3.4 L (3.5-5.1) mmol/L Chloride 109 H (98-107) mmol/L BUN 66 H (9-20) mg/dL Creatinine 1.51 H (0.66-1.25) mg/dL Glucose 131 H (74-99) mg/dL POC Glucose (mg/dL) (75-99) mg/dL Magnesium 2.9 H (1.6-2.3) mg/dL Lactate Dehydrogenase 4081 H (313-618) U/L 02/05/21 02/05/21 02/05/21 Range/Units 04:40 05:01 05:51 WBC (3.8-10.6) k/uL RBC (4.30-5.90) m/uL Hgb (13.0-17.5) gm/dL Hct (39.0-53.0) % Plt Count (150-450) k/uL Neutrophils # (1.3-7.7) k/uL Monocytes # (0-1.0) k/uL APTT (22.0-30.0) sec Fibrinogen (200-500) mg/dL ABG pH 7.53 H (7.35-7.45) ABG pCO2 29 L (35-45) mmHg ABG pO2 75 L (83-108) mmHg ABG Total CO2 25 H (19-24) mmol/L Potassium (3.5-5.1) mmol/L Chloride (98-107) mmol/L BUN (9-20) mg/dL Creatinine (0.66-1.25) mg/dL Glucose (74-99) mg/dL POC Glucose (mg/dL) 130 H 190 H (75-99) mg/dL Magnesium (1.6-2.3) mg/dL Lactate Dehydrogenase (313-618) U/L 02/05/21 02/05/21 02/05/21 Range/Units 06:52 08:26 09:18 WBC (3.8-10.6) k/uL RBC (4.30-5.90) m/uL Hgb (13.0-17.5) gm/dL Hct (39.0-53.0) % Plt Count (150-450) k/uL Neutrophils # (1.3-7.7) k/uL Monocytes # (0-1.0) k/uL APTT (22.0-30.0) sec Fibrinogen (200-500) mg/dL ABG pH (7.35-7.45) ABG pCO2 (35-45) mmHg ABG pO2 (83-108) mmHg ABG Total CO2 (19-24) mmol/L Potassium (3.5-5.1) mmol/L Chloride (98-107) mmol/L BUN (9-20) mg/dL Creatinine (0.66-1.25) mg/dL Glucose (74-99) mg/dL POC Glucose (mg/dL) 199 H 164 H 152 H (75-99) mg/dL Magnesium (1.6-2.3) mg/dL Lactate Dehydrogenase (313-618) U/L 02/05/21 02/05/21 Range/Units 09:55 12:29 WBC (3.8-10.6) k/uL RBC (4.30-5.90) m/uL Hgb (13.0-17.5) gm/dL Hct (39.0-53.0) % Plt Count (150-450) k/uL Neutrophils # (1.3-7.7) k/uL Monocytes # (0-1.0) k/uL APTT (22.0-30.0) sec Fibrinogen (200-500) mg/dL ABG pH (7.35-7.45) ABG pCO2 (35-45) mmHg ABG pO2 (83-108) mmHg ABG Total CO2 (19-24) mmol/L Potassium (3.5-5.1) mmol/L Chloride (98-107) mmol/L BUN (9-20) mg/dL Creatinine (0.66-1.25) mg/dL Glucose (74-99) mg/dL POC Glucose (mg/dL) 163 H 137 H (75-99) mg/dL Magnesium (1.6-2.3) mg/dL Lactate Dehydrogenase (313-618) U/L Microbiology - Last 24 Hours (Table) 02/02/21 20:50 Gram Stain - Final Sputum Sputum Culture - Final Methicillin resist S. aureus 02/01/21 06:36 Blood Culture - Preliminary Blood No Growth after 96 hours
[2021-02-05 13:38] LABS: Glucose,Whole Blood 167 mg/dL (75-99)
[2021-02-05 14:21] LABS: Glucose,Whole Blood 171 mg/dL (75-99)
[2021-02-05 15:18] LABS: Glucose,Whole Blood 167 mg/dL (75-99)
--- NOTE | 2021-02-05 15:37 | CC ---
CARDIAC CATHETERIZATION REPORT DATE OF SERVICE: February 05, 2021 PERFORMING PHYSICIAN: Siva Rosales MD. PROCEDURE PERFORMED: 1. Selective left coronary angiogram. 2. Successful removal of Impella with achieving a right groin hemostasis using 2 Perclose device. INDICATION: This is a 70-year-old gentleman who was admitted to the hospital a few days ago with acute anterior ST-elevation myocardial infarction complicated by cardiogenic shock. An Impella was placed. He was brought today for an angiogram and possible intervention of the left circumflex because he continues to be hypotensive in spite of vasopressors and also to remove the Impella. APPROACH: Right common femoral artery. COMPLICATION: None. LEVEL OF SEDATION: Moderate with sedation length of 30 minutes. PROCEDURE DESCRIPTION: After obtaining an informed consent, the patient was brought to the cardiac medical laboratory technicians. I did stick the 14-[place] Impella using an 18-gauge cook needle, and I placed a 6- [place] sheath inside the 14-[place] sheath. After that I did selective left coronary angiogram using an EBU guide. After that I did remove the Impella from the left ventricle using manual pullback and then I closed the groin using 2 Perclose device. The groin was pre-closed before. The procedure was completed without any complication. SELECTIVE CORONARY ANGIOGRAM: 1. The left main is a large caliber vessel, seems to be angiographically normal. 2. The left circumflex is a moderate caliber vessel and seems to be chronically occluded in the midportion with poor outflow. 3. The LAD: The proximal LAD is stented and the stent is patent. The mid LAD appeared to have mild disease only and the distal LAD appeared to have what seems to be a filling defect likely represents thrombus. The flow in the LAD is DRAKE-3 flow. REMOVAL OF THE IMPELLA AND HEMOSTASIS IN THE RIGHT GROIN: The Impella was turned off, then it was pulled manually from the left ventricle. After that I did deploy the 2 Perclose with good hemostasis by the end and the procedure was completed without any complication. POSTPROCEDURE MANAGEMENT: 1. Continue hemodynamic support. 2. Possible extubation. 3. Follow up with the patient. MMODL / IJN: [id number] /
[2021-02-05 16:12] LABS: Glucose,Whole Blood 157 mg/dL (75-99)
[2021-02-05] MEDS: DOBUTamine DRIP 500 MG in DEXTROSE/WATER 1 250ML.BAG IV SCH (16:12)
[2021-02-05] MEDS: NOREPINEPHRINE 8 MG in SODIUM CHLORIDE 0.9% 250 ML IV SCH (16:14)
[2021-02-05 17:08] LABS: Glucose,Whole Blood 150 mg/dL (75-99)
[2021-02-05 18:14] LABS: Glucose,Whole Blood 138 mg/dL (75-99)
[2021-02-05 18:16] VITALS: BP 98/55
[2021-02-05 19:10] LABS: Glucose,Whole Blood 158 mg/dL (75-99)
[2021-02-05 20:14] LABS: Glucose,Whole Blood 151 mg/dL (75-99)
[2021-02-05 21:06] LABS: Glucose,Whole Blood 142 mg/dL (75-99)
[2021-02-05] MEDS: SODIUM CHLORIDE 0.9% 1,000 ML IV SCH (21:09)
[2021-02-05 21:56] LABS: Glucose,Whole Blood 157 mg/dL (75-99)
[2021-02-06 00:09] LABS: Glucose,Whole Blood 139 mg/dL (75-99)
[2021-02-06] MEDS: INSULIN REGULAR 100 UNIT in SODIUM CHLORIDE 0.9% 100 ML IV SCH ×2 (00:11→12:09)
[2021-02-06 00:57] LABS: Glucose,Whole Blood 151 mg/dL (75-99)
[2021-02-06 01:58] LABS: Glucose,Whole Blood 149 mg/dL (75-99)
[2021-02-06 03:08] LABS: Glucose,Whole Blood 143 mg/dL (75-99)
[2021-02-06] MEDS ORDERED: DEXTROSE 5% IN WATER 100 ML with AMIODARONE 150 MG IV ONE ×2 (04:06→19:10)
[2021-02-06] MEDS ORDERED: AMIODARONE 360 MG in DEXTROSE 5% IN WATER 200 ML IV ONE ×2 (04:15)
[2021-02-06 04:21] LABS: Basophils # (A) 0.1 k/uL (0-0.2); Basophils % (A) 1 %; Eosinophils # (A) 0.2 k/uL (0-0.7); Eosinophils % (A) 1 %; HCT 24.9 % (39.0-53.0); HGB 8.6 gm/dL (13.0-17.5); Lymphocytes # (A) 5.6 k/uL (1.0-4.8); Lymphocytes % (A) 22 %; MCH 32.3 pg (25.0-35.0); MCHC 34.4 g/dL (31.0-37.0); MCV 94.1 fL (80.0-100.0); Mean Platelet Volume 12.9; Monocytes # (A) 1.4 k/uL (0-1.0); Monocytes % (A) 6 %; Neutrophils # (A) 16.7 k/uL (1.3-7.7); Neutrophils % (A) 67 %; Platelet Count 127 k/uL (150-450); RBC 2.65 m/uL (4.30-5.90); RDW 14.7 % (11.5-15.5); WBC 24.8 k/uL (3.8-10.6)
[2021-02-06 04:27] LABS: Prothrombin Time 10.9 sec (9.0-12.0)
[2021-02-06 04:33] LABS: Calcium 7.6 mg/dL (8.4-10.2); Potassium 3.6 mmol/L (3.5-5.1)
[2021-02-06] MEDS ORDERED: POTASSIUM BICARBONATE/CIT AC 20 MEQ TABLET.EFF NG-TUBE SCH ×2 (05:00→08:00)
[2021-02-06 05:05] LABS: Glucose,Whole Blood 253 mg/dL (75-99)
[2021-02-06 05:59] LABS: ABG HCO3 22 mmol/L (21-25); ABG Oxygen Saturation 95.5 % (94-97); ABG PCO2 32 mmHg (35-45); ABG PH 7.45 (7.35-7.45); ABG PO2 77 mmHg (83-108); ABG TCO2 23 mmol/L (19-24); Allen Test Performed? Yes
[2021-02-06 06:03] LABS: Glucose,Whole Blood 221 mg/dL (75-99)
[2021-02-06 06:55] LABS: Glucose,Whole Blood 201 mg/dL (75-99)
[2021-02-06] MEDS: CEFEPIME 2 GM in SODIUM CHLORIDE 0.9% 100 ML IVPB SCH (06:58)
[2021-02-06] MEDS ORDERED: Potassium Replacement Protocol 1 EACH MISC MISCELLANE PRN (07:47)
[2021-02-06] MEDS: CHLORHEXIDINE GLUCONATE 15 ML CUP MUCOUS MEM SCH ×2 (08:03→20:13)
[2021-02-06] MEDS: METOPROLOL TARTRATE 12.5 MG TAB PO SCH ×2 (08:03→20:13)
[2021-02-06] MEDS: LEVOTHYROXINE IVP 100 MCG/5 ML VIAL IV SCH (08:03)
[2021-02-06] MEDS: TICAGRELOR 90 MG TAB PO SCH ×2 (08:03→20:13)
[2021-02-06] MEDS: ATORVASTATIN 80 MG TAB PO SCH (08:04)
[2021-02-06] MEDS: ASPIRIN 81 MG PO SCH (08:04)
[2021-02-06] MEDS: FUROSEMIDE 10 MG/ML 4 ML VIAL IV SCH ×2 (08:04→20:13)
[2021-02-06 08:17] LABS: Glucose,Whole Blood 161 mg/dL (75-99)
[2021-02-06 09:50] LABS: Glucose,Whole Blood 174 mg/dL (75-99)
--- NOTE | 2021-02-06 10:01 | XR ---
EXAMINATION TYPE: XR chest 1V portable DATE OF EXAM: 02/06/2021 COMPARISON: 02/05/2021 HISTORY: Intubated TECHNIQUE: Single frontal view of the chest is obtained. FINDINGS: Endotracheal tube, orogastric tube and intrathoracic balloon pump are noted again. Multipl e overlying leads. No evidence of pneumothorax. Heart size is enlarged, stable. Prominent left basil ar airspace opacity with small to moderate left pleural effusion remains. Interstitial airspace opaci ties within the right lung and right lung base are slightly increased. IMPRESSION: 1. Left basilar airspace opacity with small left pleural effusion is stable. 2. Patchy interstitial airspace opacity throughout the right lung are slightly increased.
--- NOTE | 2021-02-06 10:06 | P.PN ---
Subjective Progress Note Date: 02/06/21 Principal diagnosis: ST segment elevation myocardial infarction, respiratory failure. Cardiogenic shock and acute hypoxic respiratory failure secondary to cardiogenic shock This is a 70-year-old white male, with history of hypertension, diabetes, dyslipidemia, chronic neck pain, depression, chronic nicotine dependence, no previous history of documented coronary artery disease. Patient came into the hospital with symptoms of acute shortness of breath. Patient woke up this m orning and he was complaining of shortness of breath, he had no dizziness no palpitation no nausea no vomiting or diaphoresis. However the patient was noted to be hector in color and clammy. EKG upon his initial presentation showed ST elevation in the anterolateral leads. Chest x-ray showed evidence of congestive heart failure. Troponin was 1.89. Patient was seen by cardiology and he was noted to have acute anterior lateral stress ST elevated myocardial infarction, hence the patient was taken straight to cardiac catheterization. While in the cardiac catheterization lab, patient underwent stenting and apparently during the cardiac catheterization patient went into full cardiogenic shock, patient was intubated and placed on mechanical ventilation, and an impella device was placed. The device was placed in the right groin through the femoral artery. Patient was transferred to the ICU on mechanical ventilation, and I was asked to see him on consultation. Patient was placed on tidal volume of 450, FiO2 of 100%, EPAP of 10, and assist control rate of 30. Chest x-ray showed evidence of pulmonary edema ABG showed a pO2 of 78 pCO2 of 51 pH of 7.23. Will increase to follow volume to 500 and will likely increase PEEP to 12. on 02/01/2021 patient seen in follow-up in the intensive care unit. He remains sedated, intubated on mechanical ventilator, with assist control mode of vent ilation rate of 30, tidal vital was 500, FiO2 of 50% and PEEP of 12. This point his blood gases show pO2 of 117, pCO2 31, and pH of 7.43, and this was done on FiO2 of 50%, today's chest x-ray has been reviewed showing improving perihilar and basilar infiltrates. Hemodynamically patient remains on Impella device. He is on 0.9 normal saline at 20 ML per hour, his Diprivan and is at 35 mics per ki lo per minute, and Lasix infusion at 10 mg per hour, his heparin infusion is at weight-based protocol. He is in negative fluid balance, -1009 mL over the last 24 hours. Today's labs show improvement of patient's white blood cell count down to 14.6, hemoglobin is 13.2, CMP showed sodium of 134, potassium is 4.0, chloride is 107, CO2 is 20, BUN of 30, creatinine is 1.55. Patient's second troponin increased to 149. The heart rhythm is sinus rhythm on the monitor with a rate of 68 BPM, not requiring any vasopressor support at this time, we added empiric antibiotics in the form of cefepime and vancomycin for empiric antibiotic coverage especially in view of elevated white count and multiple i ndwelling lines. patient was tested for COVID-19 via PCR test and was found to be negative. Patient continues on Lasix, and is producing urine output in the order of 250-400 mL per hour. Patient also remains on aspirin 81 mg and Brilinta. His echocardiogram showed severely impaired left acute systolic function with an EF of 25-30% On 02/02/2021, patient remains in the ICU, intubated and mechanically ventilated. Patient continues to have the left ventricular assist device in place. Remains on Lasix drip at 10 mg per hour remains on propofol at 45 mcg/kg/m, he is also on heparin and antiplatelet therapy/UL. He is on vital hp 30 mL per hour. His ventilator settings are assist control rate of 30 volume of 500 FiO2 45% PEEP is at 8. ABG showed a pO2 of 78 pCO2 of 32 pH of 7.51. Sugars are running a bit high, hence I recommended adding Levemir insulin 20 units daily. And continue A ccu-Cheks. Cardiology is planning to keep the ventricular assist device for another day, and we will hold on plans to wean and exited the patient on to the impact has been removed. Labs were reviewed today, WBC count is 16.9 hemoglobin is 12.4. Potassium is low at 2.9 be corrected as per protocol. BUN is 39 and creatinine is 1.61, slightly worse compared to the last couple of days. LDH is over 5000. Patient is a negative balance about 3-1/2 L since he was admitted to the ICU, chest x-ray continues to show mild interstitial edema bilaterally. Patient was reevaluated today on 02/03/2021, remains in the ICU, intubated and mechanically ventilated. Remains on Lasix drip, propofol at 45 mcg/kg/m, Lasix 10 mg per hour heparin drip, he is also on vital Hp/enteral feeding. Patient remains on cefepime. His ventilator settings are assist control rate of 30 tidal volumes 500 FiO2 45% PEEP was 8 and I cut it down to 5. ABG showed a pO2 of 79 pCO2 of 33 pH of 7.5 to chest x-ray continues to show some mild pulmonary edema, and left lower lobe atelectasis, possibly a small left-sided pleural effusion. Patient had a negative balance of 2.5 L over the last 24 hours. Remains on impella at p8, minimal oozing at the right femoral site noted, not considered clinically significant. No evidence of any leg ischemia. Hydralazine was started yesterday to improve his mean arterial pressure to the low 70s. Creatinine is improving, it is down to 1.58 today. WBC count is 17.5 hemoglobin is 11.7. PTT is 46. Remains on heparin. LDH is elevated at 5863 Progress note dated 02/04/2021. This is a 70-year-old male, admitted on January 31, with an ST segment elevation myocardial infarction. He came to the ICU on January 31 for respiratory failure, and was intubated on January 31. He had an Impella device inserted on January 31. The patient remains on the mechanical ventilator. Once the Impella device is removed, the patient could likely be weaned and extubated. Currently, he is on the volume assist control mode, rate of 30, tidal volume 500, FiO2 35%, and a PEEP of 5. Blood gases show a PaO2 of 69, PaCO2 32, and a pH is 7.52. The patient remains on IV heparin via weightbase protocol, insulin drip at 11 units an hour, propofol at 45 mcg/kg/m, saline at 20 mL an hour, and vital high prote in for nutrition, at 44 mL an hour, which is goal. White count 16.1, hemoglobin 10.2, hematocrit 29.3, and platelet count 127,000. PT 10.3, INR 1.0, PTT 47.8, and fibrinogen 765. Sodium 140, potassium 3.7, chlorides 109, CO2 28, anion gap is 3, BUN 66, and creatinine 1.67. Chest x-ray shows evidence of mild interstitial edema in my opinion. Progress note dated 02/05/2021. 70-year-old male, admitted on January 31, with an ST segment elevation myocardial infarction. The patient came to the intensive care unit on January 31 for respiratory failure and was intubated on January 31. He still has an Impella device in place. Apparently, the patient is going back to the Emt I/85 today. He remains on the mechanical ventilator. He is on the volume assist control mode rate of 30, tidal volume 500, FiO2 35%, and PEEP of 5. Blood gases show a PaO2 of 75, PaCO2 of 29, pH is 7.53. This blood gases consistent with respiratory alkalosis. He remains on heparin via weightbase protocol, propofol at 50 mics per kilogram per minute, saline at KVO, dobutamine at 2.5 mcg/kg/m, insulin at 13 units an hour, and norepinephrine at 3 mcg/m. Vital high protein is at goal. But is currently on hold since the patient is going back to the Emt I/85. White count 18.7, hemoglobin 10, hematocrit 28.8, platelet count 114,000. PTT is 50.8. Sodium is 141, potassium 3.4, chlorides 109, CO2 25, anion gap 7, BUN 66, and creatinine 1.51. LDH is 4081. A sputum from February 02 showing presumptive staph aureus. Sensitivities are pending. The patient remains on cefepime and vancomycin. Chest x-ray looks pretty good safer either a left-sided pleural effusion or left basilar atelectasis. Progress note dated 02/06/2021. 70-year-old male, admitted on January [address] segment elevation myocardial infarction. The patient came to the intensive care unit on the same day, respiratory failure and was intubated on January 31. Yesterday, he went to the catheterization laboratory. His Impella device was removed. The patient also had a catheterization but no ballooning or stent was placed. The patient remains on mechanical ventilator. He is on the volume assist control mode, rate of 30, tidal volume 500, FiO2 35%, PEEP of 5. Blood gases show a PaO2 of 77, pCO2 32, and pH 7.45. The patient remains on multiple medications including saline at 20 mL an hour, propofol at 20 mcg/kg/m, insulin at 10 units an hour, amiodarone at 1 mg/m, norepinephrine at 7 mcg/m, dobutamine at 2.5 mcg/kg/m. The patient's also on vital high protein at 44 mL an hour, which is goal. The sputum from February 02 shows evidence of methicillin-resistant staph aureus. The patient's on vancomycin and cefepime. I will DC the cefepime today. The rest of the cultures are negative. In addition, the nurse tells me, that the patient had about a 10 minute episode of cardiopulmonary arrest last night. He was apparently in atrial fibrillation was defibrillated. He had cardiopulmonary resuscitation and eventual return of spontaneous circulation. He did receive 1 ampule of epinephrine. Again resuscitation lasted about 10 minutes. White count 24.8, hemoglobin 8.6, hematocrit 24.9, and platelet count 127,000. PT/INR now with 10.9 and 1.0. Sodium 141, potassium 3.6, chlorides 114, CO2 19, anion gap 8, BUN 67, creatinine 1.71. Chest x-ray shows patchy bilateral infiltrates, with either atelectasis or a left-sided pleural effusion. Objective - Vital Signs Vital signs: Vital Signs Temp 98.4 F 02/06/21 08:00 Pulse 61 02/06/21 09:00 Resp 30 H 02/06/21 09:00 BP 98/55 02/05/21 18:00 Pulse Ox 98 02/06/21 09:00 Intake & Output 02/05/21 02/06/21 02/06/21 18:59 06:59 18:59 Intake Total 4156.385 8748.853 285.750 Output Total 1445 1030 200 Balance 456.167 926.853 85.750 Weight 127.6 kg Intake: IV 281 781 23 Cefepime 2 gm In Sodium 25 Chloride 0.9% 100 ml @ 25 mls/hr IVPB Q12H [facility] Rx# :[id number] Heparin Sodium,Porcine 12 10 ,500 unit In Dextrose 5% in Water 500 ml @ Per Protocol IV DIRECTED [facility] Rx#:[id number] Potassium Chloride 20 meq 150 In Water For Injection 1 100ml.bag @ 50 mls/hr IVPB Q2H [facility] Rx#: [id number] Pressure Bag 51 36 3 Sodium Chloride 0.9% 1, 20 220 20 000 ml @ 20 mls/hr IV . Q24H [facility] Rx#:[id number] Vancomycin 1,750 mg In 500 Sodium Chloride 0.9% 500 ml 500 ml @ 167 mls/hr IVPB Q16H [facility] Rx#: [id number] Intake, IV Titration 1620.167 755.853 241.750 Amount DOBUTamine DRIP 500 mg In 199.856 127.834 Dextrose/Water 1 250ml. bag @ 2.5 MCG/KG/MIN 7. 425 mls/hr IV .Q24H [facility] Rx#:[id number] Insulin Regular 100 unit 112.270 96.993 In Sodium Chloride 0.9% 100 ml @ Per Protocol IV .Q0M [facility] Rx#:[id number] Norepinephrine 8 mg In 68.964 125.604 36.845 Sodium Chloride 0.9% 250 ml @ 0.05 MCG/KG/MIN 9. 578 mls/hr IV .Q24H [facility] Rx#:[id number] Sodium Chloride 0.9% 1, 450 75 000 ml @ 75 mls/hr IV . [id number] [facility] Rx#:[id number] Vancomycin 1,750 mg In 334 Sodium Chloride 0.9% 500 ml 500 ml @ 167 mls/hr IVPB Q16H [facility] Rx#: [id number] Vancomycin 1,750 mg In 167 Sodium Chloride 0.9% 500 ml 500 ml @ 167 mls/hr IVPB Q18H [facility] Rx#: [id number] propofoL 1,000 mg In 288.077 458.256 77.071 Empty Bag 1 bag @ Titrate IV .Q0M [facility] Rx#: [id number] Tube Feeding 360 21 Other 60 Output: Urine 1445 1030 200 Other: Voiding Method Indwelling Catheter Indwelling Catheter # Bowel Movements 1 ABP, PAP, CO, CI - Last Documented Arterial Blood Pressure 121/54 - Exam No acute distress, sedated, with an orally placed endotracheal tube. Saturations are 98%. HEENT examination is grossly unremarkable. Neck supple. Full range of motion. No adenopathy thyromegaly or neck vein distention. Cardiovascular examination reveals regular rhythm rate. S1-S2 normal. No S3 or S4. No discernible murmur noted. Heart rate 61 bpm. Heart sounds are distant. Lungs reveal bilateral scattered rhonchi and a few basilar crackles. No wheezes. Breath sounds equal bilaterally. Abdomen soft bowel sounds are heard. No masses or tenderness. Extremities are intact. Minimal lower extremity edema. No cyanosis or clubbing. Skin is without rash or lesion. Neurologic examination cannot be adequately assessed at this time given the patient's current level of sedation. - Labs CBC & Chem 7: 02/06/21 04:12 02/06/21 04:12 Labs: Abnormal Lab Results - Last 24 Hours (Table) 02/05/21 02/05/21 02/05/21 Range/Units 09:55 12:29 13:37 WBC (3.8-10.6) k/uL RBC (4.30-5.90) m/uL Hgb (13.0-17.5) gm/dL Hct (39.0-53.0) % Plt Count (150-450) k/uL Neutrophils # (1.3-7.7) k/uL Lymphocytes # (1.0-4.8) k/uL Monocytes # (0-1.0) k/uL ABG pCO2 (35-45) mmHg ABG pO2 (83-108) mmHg Chloride (98-107) mmol/L Carbon Dioxide (22-30) mmol/L BUN (9-20) mg/dL Creatinine (0.66-1.25) mg/dL Glucose (74-99) mg/dL POC Glucose (mg/dL) 163 H 137 H 167 H (75-99) mg/dL Calcium (8.4-10.2) mg/dL Magnesium (1.6-2.3) mg/dL 02/05/21 02/05/21 02/05/21 Range/Units 14:20 15:16 16:10 WBC (3.8-10.6) k/uL RBC (4.30-5.90) m/uL Hgb (13.0-17.5) gm/dL Hct (39.0-53.0) % Plt Count (150-450) k/uL Neutrophils # (1.3-7.7) k/uL Lymphocytes # (1.0-4.8) k/uL Monocytes # (0-1.0) k/uL ABG pCO2 (35-45) mmHg ABG pO2 (83-108) mmHg Chloride (98-107) mmol/L Carbon Dioxide (22-30) mmol/L BUN (9-20) mg/dL Creatinine (0.66-1.25) mg/dL Glucose (74-99) mg/dL POC Glucose (mg/dL) 171 H 167 H 157 H (75-99) mg/dL Calcium (8.4-10.2) mg/dL Magnesium (1.6-2.3) mg/dL 02/05/21 02/05/21 02/05/21 Range/Units 17:06 18:12 19:08 WBC (3.8-10.6) k/uL RBC (4.30-5.90) m/uL Hgb (13.0-17.5) gm/dL Hct (39.0-53.0) % Plt Count (150-450) k/uL Neutrophils # (1.3-7.7) k/uL Lymphocytes # (1.0-4.8) k/uL Monocytes # (0-1.0) k/uL ABG pCO2 (35-45) mmHg ABG pO2 (83-108) mmHg Chloride (98-107) mmol/L Carbon Dioxide (22-30) mmol/L BUN (9-20) mg/dL Creatinine (0.66-1.25) mg/dL Glucose (74-99) mg/dL POC Glucose (mg/dL) 150 H 138 H 158 H (75-99) mg/dL Calcium (8.4-10.2) mg/dL Magnesium (1.6-2.3) mg/dL 02/05/21 02/05/21 02/05/21 Range/Units 20:12 21:04 21:55 WBC (3.8-10.6) k/uL RBC (4.30-5.90) m/uL Hgb (13.0-17.5) gm/dL Hct (39.0-53.0) % Plt Count (150-450) k/uL Neutrophils # (1.3-7.7) k/uL Lymphocytes # (1.0-4.8) k/uL Monocytes # (0-1.0) k/uL ABG pCO2 (35-45) mmHg ABG pO2 (83-108) mmHg Chloride (98-107) mmol/L Carbon Dioxide (22-30) mmol/L BUN (9-20) mg/dL Creatinine (0.66-1.25) mg/dL Glucose (74-99) mg/dL POC Glucose (mg/dL) 151 H 142 H 157 H (75-99) mg/dL Calcium (8.4-10.2) mg/dL Magnesium (1.6-2.3) mg/dL 02/06/21 02/06/21 02/06/21 Range/Units 00:09 00:55 01:56 WBC (3.8-10.6) k/uL RBC (4.30-5.90) m/uL Hgb (13.0-17.5) gm/dL Hct (39.0-53.0) % Plt Count (150-450) k/uL Neutrophils # (1.3-7.7) k/uL Lymphocytes # (1.0-4.8) k/uL Monocytes # (0-1.0) k/uL ABG pCO2 (35-45) mmHg ABG pO2 (83-108) mmHg Chloride (98-107) mmol/L Carbon Dioxide (22-30) mmol/L BUN (9-20) mg/dL Creatinine (0.66-1.25) mg/dL Glucose (74-99) mg/dL POC Glucose (mg/dL) 139 H 151 H 149 H (75-99) mg/dL Calcium (8.4-10.2) mg/dL Magnesium (1.6-2.3) mg/dL 02/06/21 02/06/21 02/06/21 Range/Units 03:06 04:12 04:12 WBC 24.8 H (3.8-10.6) k/uL RBC 2.65 L (4.30-5.90) m/uL Hgb 8.6 L (13.0-17.5) gm/dL Hct 24.9 L (39.0-53.0) % Plt Count 127 L (150-450) k/uL Neutrophils # 16.7 H (1.3-7.7) k/uL Lymphocytes # 5.6 H (1.0-4.8) k/uL Monocytes # 1.4 H (0-1.0) k/uL ABG pCO2 (35-45) mmHg ABG pO2 (83-108) mmHg Chloride 114 H (98-107) mmol/L Carbon Dioxide 19 L (22-30) mmol/L BUN 67 H (9-20) mg/dL Creatinine 1.71 H (0.66-1.25) mg/dL Glucose 235 H (74-99) mg/dL POC Glucose (mg/dL) 143 H (75-99) mg/dL Calcium 7.6 L (8.4-10.2) mg/dL Magnesium 3.0 H (1.6-2.3) mg/dL 02/06/21 02/06/21 02/06/21 Range/Units 05:03 05:55 06:01 WBC (3.8-10.6) k/uL RBC (4.30-5.90) m/uL Hgb (13.0-17.5) gm/dL Hct (39.0-53.0) % Plt Count (150-450) k/uL Neutrophils # (1.3-7.7) k/uL Lymphocytes # (1.0-4.8) k/uL Monocytes # (0-1.0) k/uL ABG pCO2 32 L (35-45) mmHg ABG pO2 77 L (83-108) mmHg Chloride (98-107) mmol/L Carbon Dioxide (22-30) mmol/L BUN (9-20) mg/dL Creatinine (0.66-1.25) mg/dL Glucose (74-99) mg/dL POC Glucose (mg/dL) 253 H 221 H (75-99) mg/dL Calcium (8.4-10.2) mg/dL Magnesium (1.6-2.3) mg/dL 02/06/21 02/06/21 02/06/21 Range/Units 06:53 08:16 09:49 WBC (3.8-10.6) k/uL RBC (4.30-5.90) m/uL Hgb (13.0-17.5) gm/dL Hct (39.0-53.0) % Plt Count (150-450) k/uL Neutrophils # (1.3-7.7) k/uL Lymphocytes # (1.0-4.8) k/uL Monocytes # (0-1.0) k/uL ABG pCO2 (35-45) mmHg ABG pO2 (83-108) mmHg Chloride (98-107) mmol/L Carbon Dioxide (22-30) mmol/L BUN (9-20) mg/dL Creatinine (0.66-1.25) mg/dL Glucose (74-99) mg/dL POC Glucose (mg/dL) 201 H 161 H 174 H (75-99) mg/dL Calcium (8.4-10.2) mg/dL Magnesium (1.6-2.3) mg/dL Microbiology - Last 24 Hours (Table) 02/01/21 06:36 Blood Culture - Preliminary Blood No Growth after 120 hours 02/02/21 20:50 Gram Stain - Final Sputum Sputum Culture - Final Methicillin resist S. aureus Assessment and Plan Assessment: Acute ST elevation myocardial infarction, status post stenting of LAD, and placement of an Impella device on 01/31/2021, and its subsequent removal on 02/05/2021. Hypoxemic respiratory failure secondary to cardiogenic shock, status post intubation and mechanical ventilation on 01/31/2021. Acute pulmonary edema secondary to myocardial infarction. Morbid obesity, with a BMI of 37.2. Benign essential hypertension. Hyperlipidemia. Tobacco dependence syndrome. History of depression. Methicillin-resistant staph aureus tracheobronchitis/bronchopneumonia, currently on vancomycin. Plan: Plan dated 02/04/2021. Once the Impella device is removed, the patient could likely be weaned and e xtubated. We will continue to follow. Additional recommendations and suggestions are forthcoming. The patient remains on IV heparin, insulin, and propofol. The patient is being enterally fed at goal. We will continue to follow make recommendations were appropriate. Prognosis is guarded. Plan dated 02/05/2021. The patient is going back to the catheterization laboratory today. Once the Impella device is removed, we can work on getting the patient weaned and extubated. The patient remains on IV heparin, propofol, dobutamine, insulin, and norepinephrine at 3 mcg/m. 2 feedings are on hold. Additional recommendations and suggestions are forthcoming. Prognosis is guarded. We will continue to follow make recommendations where appropriate. Plan dated 02/06/2021. The patient is not ready for extubation. The patient remains on propofol, insulin, amiodarone, norepinephrine, dobutamine, and was recently placed on vancomycin for methicillin-resistant staph aureus tracheobronchitis/b ronchopneumonia. The patient did go to the catheterization laboratory yesterday and is Impella device was removed by Dr. Rosales. We will continue to follow. Prognosis is guarded. We will attempt a daily interruption of sedation. We probably will not do a spontaneous breathing trial today. Time with Patient: Greater than 30
[2021-02-06] MEDS ORDERED: AMIODARONE 450 MG in DEXTROSE 5% IN WATER 250 ML IV SCH ×4 (10:14→18:45)
[2021-02-06] MEDS: AMIODARONE 200 MG TAB PO SCH ×2 (10:43→17:47)
--- NOTE | 2021-02-06 11:01 | P.PN ---
Subjective Progress Note Date: 02/06/21 HISTORY OF PRESENT ILLNESS: This is a pleasant 70-year-old male past medical history significant for hypertension, diabetes mellitus, dyslipidemia, chronic neck pain dependence, depression and chronic nicotine dependence. 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 He presented to the hospital with symptoms of shortness of breath. He states it seemed to have started last night however, progressively worse this morning. When he woke up he was having difficulty breathing. He denies ever having had symptoms of chest discomfort. He has no dizziness, palpitations, nausea, vomiting or diaphoresis. He was hector in color and clammy. He said he traveled to [facility] this past weekend and noticed he was easily fatigued which is not normal for him. EKG reveals ST elevation anterolateral leads. This x-ray revealed early congestive heart failure. Laboratory data reviewed, WBC 18, hemoglobin 14.1, platelets 271, sodium 137, potassium 4.1, creatinine 1.0, troponin 1.89 and magnesium 2.4. Current daily cardiac medications include losartan 100 mg daily, pravastatin 40 mg daily, amlodipine 10 mg daily and hydralazine 50 mg twice a day. 02/01/2021 Pt is s/p left heart catheterization with PCI to the LAD and impella placement. Cath revealed RCA sub-totally occluded likely chronic in the mid-portion, circumflex subtotally occluded in the midportion, LAD with a critical lesion in the proximal portion 99% which seems to be thrombotic, mid LAD has another hazy lesion in the range of 30-40%. He underwent successful PCI of the LAD then developed placement. LVEDP was greater than 50 mmHg. Blood pressure is 96/73 heart rate 62 with a temperature of 100.8F. Laboratory data reviewed, WBC 14.6, hemoglobin 13.2, platelets 232, fibrinogen 556, sodium 134, potassium 4, creatinine 1.55, magnesium 2.1 and repeat troponin 149. Echocardiogram obtained revealed severely impaired LV systolic function with ejection fraction 25-30%, apical anterior, apical lateral, apical inferior, apical septal LV wall motion hypokinesia. 02/02 Patient seen and examined. Patient remains on Impella still at P8. He remains sedated on ventilator. Impella LV readings 90's over 0 to low -5. Continues go od urine output. Trend and 1.6 today. MAP's 80s to 85's. Mild oozing around right femoral site. No leg ischemia with doppler able pulses. 02/03 Patient seen and examined. Patient remains intubated and sedated. Deep was decreased to 5 with FiO2 of 45. Impella in place with mild oozing of right femoral site however does not appear significant. No leg ischemia. Was started on hydralazine and isordil yesterday with improved MAP low 70's. Cr mildly improved to 1.58 today. 02/04/2021 Patient examined this morning at the bedside with Dr. Grier in the ICU. Patient remains intubated. Impella remains intact to right groin. Patient remains hypotensive with SBP in the 80s. Patient did receive a fluid bolus overnight. patient remains on IV Lasix 40 mg every 12 hours. Creatinine 1.67, up from 1.5 yesterday. 02/06/2021 Patient examined this morning at the bedside. Patient underwent impella removal yesterday with Dr. Rosales. He remains intubated in the intensive care unit. Patient had a v-fib arrest overnight. Patient recieved CPR. He was defibrillated and received epinephrine x 1 dose. Patient remains on IV dobutamine, amio, and levophed. He remains on IV lasix. BUN 67. Creatinine 1.71. PHYSICAL EXAM: VITAL SIGNS: Reviewed. GENERAL: Well-developed in no acute distress. NECK: Supple. No JVD or thyromegaly LUNGS: Respirations even and unlabored-remains on mechanical ventilation. Lungs diminished bilaterally. HEART: Regular rate and rhythm. S1 and S2 heard. EXTREMITIES: Normal range of motion. No clubbing or cyanosis. Peripheral pulses intact. ASSESSMENT: Acute anterior lateral STEMI, s/p PCI to LAD Multivessel coronary artery disease with 99% circumflex and 100% LAD stenosis Cardiogenic shock, s/p Impella placement with removal of impella on 02/05/2021 Acute hypoxic respiratory failure requiring mechanical ventilation Diabetes mellitus Hypertension Dyslipidemia Chronic nicotine dependence Obesity, BMI 37 PLAN: Continue IV lasix Accurate I&O Daily weights Monitor kidney function Continue aspirin, brilinta, lipitor and metoprolol Discontinue IV dobutamine Discontinue IV amio Begin oral amio 400 TID Further recommendations pending patient course. Nurse practitioner note has been reviewed by physician. Signing provider agrees with the documented findings, assessment, and plan of care. Objective - Vital Signs Vital signs: Vital Signs Temp 98.4 F 02/06/21 08:00 Pulse 61 02/06/21 10:00 Resp 30 H 02/06/21 10:00 BP 98/55 02/05/21 18:00 Pulse Ox 98 02/06/21 10:00 Intake & Output 02/05/21 02/06/21 02/06/21 18:59 06:59 18:59 Intake Total 1584.022 0306.853 673.679 Output Total 1445 1030 900 Balance 456.167 926.853 -226.321 Weight 127.6 kg Intake: IV 281 781 92 Cefepime 2 gm In Sodium 25 Chloride 0.9% 100 ml @ 25 mls/hr IVPB Q12H [facility] Rx# :[id number] Heparin Sodium,Porcine 12 10 ,500 unit In Dextrose 5% in Water 500 ml @ Per Protocol IV DIRECTED [facility] Rx#:[id number] Potassium Chloride 20 meq 150 In Water For Injection 1 100ml.bag @ 50 mls/hr IVPB Q2H [facility] Rx#: [id number] Pressure Bag 51 36 12 Sodium Chloride 0.9% 1, 20 220 80 000 ml @ 20 mls/hr IV . Q24H [facility] Rx#:[id number] Vancomycin 1,750 mg In 500 Sodium Chloride 0.9% 500 ml 500 ml @ 167 mls/hr IVPB Q16H [facility] Rx#: [id number] Intake, IV Titration 1620.167 755.853 264.679 Amount DOBUTamine DRIP 500 mg In 199.856 127.834 Dextrose/Water 1 250ml. bag @ 2.5 MCG/KG/MIN 7. 425 mls/hr IV .Q24H [facility] Rx#:[id number] Insulin Regular 100 unit 112.270 96.993 In Sodium Chloride 0.9% 100 ml @ Per Protocol IV .Q0M [facility] Rx#:[id number] Norepinephrine 8 mg In 68.964 125.604 36.845 Sodium Chloride 0.9% 250 ml @ 0.05 MCG/KG/MIN 9. 578 mls/hr IV .Q24H [facility] Rx#:[id number] Sodium Chloride 0.9% 1, 450 75 000 ml @ 75 mls/hr IV . [id number] [facility] Rx#:[id number] Vancomycin 1,750 mg In 334 Sodium Chloride 0.9% 500 ml 500 ml @ 167 mls/hr IVPB Q16H [facility] Rx#: [id number] Vancomycin 1,750 mg In 167 Sodium Chloride 0.9% 500 ml 500 ml @ 167 mls/hr IVPB Q18H [facility] Rx#: [id number] propofoL 1,000 mg In 288.077 458.256 100.000 Empty Bag 1 bag @ Titrate IV .Q0M [facility] Rx#: [id number] Tube Feeding 360 197 Other 60 120 Output: Urine 1445 1030 900 Other: Voiding Method Indwelling Catheter Indwelling Catheter Indwelling Catheter # Bowel Movements 1 ABP, PAP, CO, CI - Last Documented Arterial Blood Pressure 94/56 - Labs CBC & Chem 7: 02/06/21 04:12 02/06/21 04:12 Labs: Abnormal Lab Results - Last 24 Hours (Table) 02/05/21 02/05/21 02/05/21 Range/Units 12:29 13:37 14:20 WBC (3.8-10.6) k/uL RBC (4.30-5.90) m/uL Hgb (13.0-17.5) gm/dL Hct (39.0-53.0) % Plt Count (150-450) k/uL Neutrophils # (1.3-7.7) k/uL Lymphocytes # (1.0-4.8) k/uL Monocytes # (0-1.0) k/uL ABG pCO2 (35-45) mmHg ABG pO2 (83-108) mmHg Chloride (98-107) mmol/L Carbon Dioxide (22-30) mmol/L BUN (9-20) mg/dL Creatinine (0.66-1.25) mg/dL Glucose (74-99) mg/dL POC Glucose (mg/dL) 137 H 167 H 171 H (75-99) mg/dL Calcium (8.4-10.2) mg/dL Magnesium (1.6-2.3) mg/dL 02/05/21 02/05/21 02/05/21 Range/Units 15:16 16:10 17:06 WBC (3.8-10.6) k/uL RBC (4.30-5.90) m/uL Hgb (13.0-17.5) gm/dL Hct (39.0-53.0) % Plt Count (150-450) k/uL Neutrophils # (1.3-7.7) k/uL Lymphocytes # (1.0-4.8) k/uL Monocytes # (0-1.0) k/uL ABG pCO2 (35-45) mmHg ABG pO2 (83-108) mmHg Chloride (98-107) mmol/L Carbon Dioxide (22-30) mmol/L BUN (9-20) mg/dL Creatinine (0.66-1.25) mg/dL Glucose (74-99) mg/dL POC Glucose (mg/dL) 167 H 157 H 150 H (75-99) mg/dL Calcium (8.4-10.2) mg/dL Magnesium (1.6-2.3) mg/dL 02/05/21 02/05/21 02/05/21 Range/Units 18:12 19:08 20:12 WBC (3.8-10.6) k/uL RBC (4.30-5.90) m/uL Hgb (13.0-17.5) gm/dL Hct (39.0-53.0) % Plt Count (150-450) k/uL Neutrophils # (1.3-7.7) k/uL Lymphocytes # (1.0-4.8) k/uL Monocytes # (0-1.0) k/uL ABG pCO2 (35-45) mmHg ABG pO2 (83-108) mmHg Chloride (98-107) mmol/L Carbon Dioxide (22-30) mmol/L BUN (9-20) mg/dL Creatinine (0.66-1.25) mg/dL Glucose (74-99) mg/dL POC Glucose (mg/dL) 138 H 158 H 151 H (75-99) mg/dL Calcium (8.4-10.2) mg/dL Magnesium (1.6-2.3) mg/dL 02/05/21 02/05/21 02/06/21 Range/Units 21:04 21:55 00:09 WBC (3.8-10.6) k/uL RBC (4.30-5.90) m/uL Hgb (13.0-17.5) gm/dL Hct (39.0-53.0) % Plt Count (150-450) k/uL Neutrophils # (1.3-7.7) k/uL Lymphocytes # (1.0-4.8) k/uL Monocytes # (0-1.0) k/uL ABG pCO2 (35-45) mmHg ABG pO2 (83-108) mmHg Chloride (98-107) mmol/L Carbon Dioxide (22-30) mmol/L BUN (9-20) mg/dL Creatinine (0.66-1.25) mg/dL Glucose (74-99) mg/dL POC Glucose (mg/dL) 142 H 157 H 139 H (75-99) mg/dL Calcium (8.4-10.2) mg/dL Magnesium (1.6-2.3) mg/dL 02/06/21 02/06/21 02/06/21 Range/Units 00:55 01:56 03:06 WBC (3.8-10.6) k/uL RBC (4.30-5.90) m/uL Hgb (13.0-17.5) gm/dL Hct (39.0-53.0) % Plt Count (150-450) k/uL Neutrophils # (1.3-7.7) k/uL Lymphocytes # (1.0-4.8) k/uL Monocytes # (0-1.0) k/uL ABG pCO2 (35-45) mmHg ABG pO2 (83-108) mmHg Chloride (98-107) mmol/L Carbon Dioxide (22-30) mmol/L BUN (9-20) mg/dL Creatinine (0.66-1.25) mg/dL Glucose (74-99) mg/dL POC Glucose (mg/dL) 151 H 149 H 143 H (75-99) mg/dL Calcium (8.4-10.2) mg/dL Magnesium (1.6-2.3) mg/dL 02/06/21 02/06/21 02/06/21 Range/Units 04:12 04:12 05:03 WBC 24.8 H (3.8-10.6) k/uL RBC 2.65 L (4.30-5.90) m/uL Hgb 8.6 L (13.0-17.5) gm/dL Hct 24.9 L (39.0-53.0) % Plt Count 127 L (150-450) k/uL Neutrophils # 16.7 H (1.3-7.7) k/uL Lymphocytes # 5.6 H (1.0-4.8) k/uL Monocytes # 1.4 H (0-1.0) k/uL ABG pCO2 (35-45) mmHg ABG pO2 (83-108) mmHg Chloride 114 H (98-107) mmol/L Carbon Dioxide 19 L (22-30) mmol/L BUN 67 H (9-20) mg/dL Creatinine 1.71 H (0.66-1.25) mg/dL Glucose 235 H (74-99) mg/dL POC Glucose (mg/dL) 253 H (75-99) mg/dL Calcium 7.6 L (8.4-10.2) mg/dL Magnesium 3.0 H (1.6-2.3) mg/dL 02/06/21 02/06/21 02/06/21 Range/Units 05:55 06:01 06:53 WBC (3.8-10.6) k/uL RBC (4.30-5.90) m/uL Hgb (13.0-17.5) gm/dL Hct (39.0-53.0) % Plt Count (150-450) k/uL Neutrophils # (1.3-7.7) k/uL Lymphocytes # (1.0-4.8) k/uL Monocytes # (0-1.0) k/uL ABG pCO2 32 L (35-45) mmHg ABG pO2 77 L (83-108) mmHg Chloride (98-107) mmol/L Carbon Dioxide (22-30) mmol/L BUN (9-20) mg/dL Creatinine (0.66-1.25) mg/dL Glucose (74-99) mg/dL POC Glucose (mg/dL) 221 H 201 H (75-99) mg/dL Calcium (8.4-10.2) mg/dL Magnesium (1.6-2.3) mg/dL 02/06/21 02/06/21 Range/Units 08:16 09:49 WBC (3.8-10.6) k/uL RBC (4.30-5.90) m/uL Hgb (13.0-17.5) gm/dL Hct (39.0-53.0) % Plt Count (150-450) k/uL Neutrophils # (1.3-7.7) k/uL Lymphocytes # (1.0-4.8) k/uL Monocytes # (0-1.0) k/uL ABG pCO2 (35-45) mmHg ABG pO2 (83-108) mmHg Chloride (98-107) mmol/L Carbon Dioxide (22-30) mmol/L BUN (9-20) mg/dL Creatinine (0.66-1.25) mg/dL Glucose (74-99) mg/dL POC Glucose (mg/dL) 161 H 174 H (75-99) mg/dL Calcium (8.4-10.2) mg/dL Magnesium (1.6-2.3) mg/dL Microbiology - Last 24 Hours (Table) 02/01/21 06:36 Blood Culture - Preliminary Blood No Growth after 120 hours 02/02/21 20:50 Gram Stain - Final Sputum Sputum Culture - Final Methicillin resist S. aureus
[2021-02-06 12:06] LABS: Glucose,Whole Blood 157 mg/dL (75-99)
[2021-02-06 13:09] VITALS: BMI 38.1
[2021-02-06 13:46] LABS: Glucose,Whole Blood 160 mg/dL (75-99)
[2021-02-06] MEDS: NOREPINEPHRINE 8 MG in SODIUM CHLORIDE 0.9% 250 ML IV SCH (14:15)
--- NOTE | 2021-02-06 15:00 | P.PN ---
Subjective Progress Note Date: 02/06/21 (V. froilan last night, on amiodarone by mouth through the NG tube.) Dictation on progress note date of service 02/06/[address] Forrester. Patient seen today evaluated [id number], Patient during the night had V. 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 Patient still intubated without for tomorrow to be extubated if he is ready to have that. Patient seen by cardiology as well as pulmonary where they are both monitoring the patient in the ICU. Laboratory his white count 24.8 and hemoglobin dropped to 8.6 with the hematocrit 24.9 patient also on anticoagulant heparin drip. Platelet count 127. His pro time 10.9 and INR 1.0 he has ABGs this morning indicating the pH 7.45, pCO2 32, pO2 77. Saturation 95.5 and he is on 35% oxygen. Sodium 141 potassium 3.6 chloride 114 carbon dioxide 19 below the normal range and his BUN 77 creatinine 1.71 with the GFR 40 Magnesium 3 elevated calcium 7.6 low his blood sugar has been fluctuating however in the morning was 235 patient was covered with insulin drip. And and currently afternoon is improving blood sugar lost reading 160 and prior to that 157. On the exam in ICU Patient activity sedated. He does not wake up with verbal stimuli or tactile stimulation and he is on the preevent. Pressure ranging between 102/49 97/54 Head was normocephalic atraumatic, endotracheal tube with the mechanical ventilation at bedside, NG tube, feeding tube, HEENT no change Neck was supple Chest on the vent and respiratory and ventilator and he had underlying sputum staph aureus covered with vancomycin added to cefepime with the consideration of pneumonia methicillin resistant staph aureus. Heart recent events who is V. tach and treatment with amiodarone and his blood pressure is still stable at this time. Abdomen soft positive bowel sounds and fluid through the feeding tube oropharyngeal. Extremities still have positive pulses bilateral. Neurologically stable. Assessment: #1 still patient on the vent with the mechanical ventilation endotracheal tube, feeding tube, Banda catheter, on antibiotic. #2 acute systolic and diastolic dysfunction with the ejection fraction. #3 acute myocardial infarction currently with ischemic cardiomyopathy, status post stenting of the LAD., Three-vessel disease. #4 diabetes mellitus currently controlled with insulin drip. Number hypothyroidism controlled with IV Synthroid. #6 underlying bipolar, anxiety and depression and will be starting his medication obstipation 8 or of the vent with the diseased with a QT interval and the effect on the QT. hypotension and has been off the left ventricular assist. Condition still continue to be critical. Plan: Continue current medication and to follow-up will see tomorrow if he is able to tolerate extubation. Objective - Vital Signs Vital signs: Vital Signs Temp 99.4 F 02/06/21 12:00 Pulse 57 L 02/06/21 13:00 Resp 31 H 02/06/21 13:00 BP 98/55 02/05/21 18:00 Pulse Ox 100 02/06/21 13:00 Intake & Output 02/05/21 02/06/21 02/06/21 18:59 06:59 18:59 Intake Total 5705.285 8236.853 1072.708 Output Total 1445 1030 1175 Balance 456.167 926.853 -102.292 Weight 127.6 kg 127.6 kg Intake: IV 281 781 138 Cefepime 2 gm In Sodium 25 Chloride 0.9% 100 ml @ 25 mls/hr IVPB Q12H [facility] Rx# :[id number] Heparin Sodium,Porcine 12 10 ,500 unit In Dextrose 5% in Water 500 ml @ Per Protocol IV DIRECTED [facility] Rx#:[id number] Potassium Chloride 20 meq 150 In Water For Injection 1 100ml.bag @ 50 mls/hr IVPB Q2H [facility] Rx#: [id number] Pressure Bag 51 36 18 Sodium Chloride 0.9% 1, 20 220 120 000 ml @ 20 mls/hr IV . Q24H [facility] Rx#:[id number] Vancomycin 1,750 mg In 500 Sodium Chloride 0.9% 500 ml 500 ml @ 167 mls/hr IVPB Q16H [facility] Rx#: [id number] Intake, IV Titration 1620.167 755.853 455.708 Amount DOBUTamine DRIP 500 mg In 199.856 127.834 Dextrose/Water 1 250ml. bag @ 2.5 MCG/KG/MIN 7. 425 mls/hr IV .Q24H [facility] Rx#:[id number] Insulin Regular 100 unit 112.270 96.993 44.895 In Sodium Chloride 0.9% 100 ml @ Per Protocol IV .Q0M [facility] Rx#:[id number] Norepinephrine 8 mg In 68.964 125.604 82.979 Sodium Chloride 0.9% 250 ml @ 0.05 MCG/KG/MIN 9. 578 mls/hr IV .Q24H [facility] Rx#:[id number] Sodium Chloride 0.9% 1, 450 75 000 ml @ 75 mls/hr IV . [id number] [facility] Rx#:[id number] Vancomycin 1,750 mg In 334 Sodium Chloride 0.9% 500 ml 500 ml @ 167 mls/hr IVPB Q16H [facility] Rx#: [id number] Vancomycin 1,750 mg In 167 Sodium Chloride 0.9% 500 ml 500 ml @ 167 mls/hr IVPB Q18H [facility] Rx#: [id number] propofoL 1,000 mg In 288.077 458.256 200.000 Empty Bag 1 bag @ Titrate IV .Q0M [facility] Rx#: [id number] Tube Feeding 360 329 Other 60 150 Output: Urine 1445 1030 1175 Other: Voiding Method Indwelling Catheter Indwelling Catheter Indwelling Catheter # Bowel Movements 1 ABP, PAP, CO, CI - Last Documented Arterial Blood Pressure 97/54 - Labs CBC & Chem 7: 02/06/21 04:12 02/06/21 04:12 Labs: Abnormal Lab Results - Last 24 Hours (Table) 02/05/21 02/05/21 02/05/21 Range/Units 15:16 16:10 17:06 WBC (3.8-10.6) k/uL RBC (4.30-5.90) m/uL Hgb (13.0-17.5) gm/dL Hct (39.0-53.0) % Plt Count (150-450) k/uL Neutrophils # (1.3-7.7) k/uL Lymphocytes # (1.0-4.8) k/uL Monocytes # (0-1.0) k/uL ABG pCO2 (35-45) mmHg ABG pO2 (83-108) mmHg Chloride (98-107) mmol/L Carbon Dioxide (22-30) mmol/L BUN (9-20) mg/dL Creatinine (0.66-1.25) mg/dL Glucose (74-99) mg/dL POC Glucose (mg/dL) 167 H 157 H 150 H (75-99) mg/dL Calcium (8.4-10.2) mg/dL Magnesium (1.6-2.3) mg/dL 02/05/21 02/05/21 02/05/21 Range/Units 18:12 19:08 20:12 WBC (3.8-10.6) k/uL RBC (4.30-5.90) m/uL Hgb (13.0-17.5) gm/dL Hct (39.0-53.0) % Plt Count (150-450) k/uL Neutrophils # (1.3-7.7) k/uL Lymphocytes # (1.0-4.8) k/uL Monocytes # (0-1.0) k/uL ABG pCO2 (35-45) mmHg ABG pO2 (83-108) mmHg Chloride (98-107) mmol/L Carbon Dioxide (22-30) mmol/L BUN (9-20) mg/dL Creatinine (0.66-1.25) mg/dL Glucose (74-99) mg/dL POC Glucose (mg/dL) 138 H 158 H 151 H (75-99) mg/dL Calcium (8.4-10.2) mg/dL Magnesium (1.6-2.3) mg/dL 02/05/21 02/05/21 02/06/21 Range/Units 21:04 21:55 00:09 WBC (3.8-10.6) k/uL RBC (4.30-5.90) m/uL Hgb (13.0-17.5) gm/dL Hct (39.0-53.0) % Plt Count (150-450) k/uL Neutrophils # (1.3-7.7) k/uL Lymphocytes # (1.0-4.8) k/uL Monocytes # (0-1.0) k/uL ABG pCO2 (35-45) mmHg ABG pO2 (83-108) mmHg Chloride (98-107) mmol/L Carbon Dioxide (22-30) mmol/L BUN (9-20) mg/dL Creatinine (0.66-1.25) mg/dL Glucose (74-99) mg/dL POC Glucose (mg/dL) 142 H 157 H 139 H (75-99) mg/dL Calcium (8.4-10.2) mg/dL Magnesium (1.6-2.3) mg/dL 02/06/21 02/06/21 02/06/21 Range/Units 00:55 01:56 03:06 WBC (3.8-10.6) k/uL RBC (4.30-5.90) m/uL Hgb (13.0-17.5) gm/dL Hct (39.0-53.0) % Plt Count (150-450) k/uL Neutrophils # (1.3-7.7) k/uL Lymphocytes # (1.0-4.8) k/uL Monocytes # (0-1.0) k/uL ABG pCO2 (35-45) mmHg ABG pO2 (83-108) mmHg Chloride (98-107) mmol/L Carbon Dioxide (22-30) mmol/L BUN (9-20) mg/dL Creatinine (0.66-1.25) mg/dL Glucose (74-99) mg/dL POC Glucose (mg/dL) 151 H 149 H 143 H (75-99) mg/dL Calcium (8.4-10.2) mg/dL Magnesium (1.6-2.3) mg/dL 02/06/21 02/06/21 02/06/21 Range/Units 04:12 04:12 05:03 WBC 24.8 H (3.8-10.6) k/uL RBC 2.65 L (4.30-5.90) m/uL Hgb 8.6 L (13.0-17.5) gm/dL Hct 24.9 L (39.0-53.0) % Plt Count 127 L (150-450) k/uL Neutrophils # 16.7 H (1.3-7.7) k/uL Lymphocytes # 5.6 H (1.0-4.8) k/uL Monocytes # 1.4 H (0-1.0) k/uL ABG pCO2 (35-45) mmHg ABG pO2 (83-108) mmHg Chloride 114 H (98-107) mmol/L Carbon Dioxide 19 L (22-30) mmol/L BUN 67 H (9-20) mg/dL Creatinine 1.71 H (0.66-1.25) mg/dL Glucose 235 H (74-99) mg/dL POC Glucose (mg/dL) 253 H (75-99) mg/dL Calcium 7.6 L (8.4-10.2) mg/dL Magnesium 3.0 H (1.6-2.3) mg/dL 02/06/21 02/06/21 02/06/21 Range/Units 05:55 06:01 06:53 WBC (3.8-10.6) k/uL RBC (4.30-5.90) m/uL Hgb (13.0-17.5) gm/dL Hct (39.0-53.0) % Plt Count (150-450) k/uL Neutrophils # (1.3-7.7) k/uL Lymphocytes # (1.0-4.8) k/uL Monocytes # (0-1.0) k/uL ABG pCO2 32 L (35-45) mmHg ABG pO2 77 L (83-108) mmHg Chloride (98-107) mmol/L Carbon Dioxide (22-30) mmol/L BUN (9-20) mg/dL Creatinine (0.66-1.25) mg/dL Glucose (74-99) mg/dL POC Glucose (mg/dL) 221 H 201 H (75-99) mg/dL Calcium (8.4-10.2) mg/dL Magnesium (1.6-2.3) mg/dL 02/06/21 02/06/21 02/06/21 Range/Units 08:16 09:49 12:05 WBC (3.8-10.6) k/uL RBC (4.30-5.90) m/uL Hgb (13.0-17.5) gm/dL Hct (39.0-53.0) % Plt Count (150-450) k/uL Neutrophils # (1.3-7.7) k/uL Lymphocytes # (1.0-4.8) k/uL Monocytes # (0-1.0) k/uL ABG pCO2 (35-45) mmHg ABG pO2 (83-108) mmHg Chloride (98-107) mmol/L Carbon Dioxide (22-30) mmol/L BUN (9-20) mg/dL Creatinine (0.66-1.25) mg/dL Glucose (74-99) mg/dL POC Glucose (mg/dL) 161 H 174 H 157 H (75-99) mg/dL Calcium (8.4-10.2) mg/dL Magnesium (1.6-2.3) mg/dL 02/06/21 Range/Units 13:45 WBC (3.8-10.6) k/uL RBC (4.30-5.90) m/uL Hgb (13.0-17.5) gm/dL Hct (39.0-53.0) % Plt Count (150-450) k/uL Neutrophils # (1.3-7.7) k/uL Lymphocytes # (1.0-4.8) k/uL Monocytes # (0-1.0) k/uL ABG pCO2 (35-45) mmHg ABG pO2 (83-108) mmHg Chloride (98-107) mmol/L Carbon Dioxide (22-30) mmol/L BUN (9-20) mg/dL Creatinine (0.66-1.25) mg/dL Glucose (74-99) mg/dL POC Glucose (mg/dL) 160 H (75-99) mg/dL Calcium (8.4-10.2) mg/dL Magnesium (1.6-2.3) mg/dL Microbiology - Last 24 Hours (Table) 02/01/21 06:36 Blood Culture - Preliminary Blood No Growth after 120 hours 02/02/21 20:50 Gram Stain - Final Sputum Sputum Culture - Final Methicillin resist S. aureus
[2021-02-06] MEDS: VANCOMYCIN 1,750 MG in SODIUM CHLORIDE 0.9% 500 ML 500 ML IVPB SCH (15:05)
[2021-02-06 16:00] LABS: Glucose,Whole Blood 128 mg/dL (75-99)
[2021-02-06 18:05] VITALS: RESP 30
[2021-02-06 18:06] LABS: Glucose,Whole Blood 121 mg/dL (75-99)
[2021-02-06] MEDS ORDERED: EPINEPHrine 10 ML SYRINGE (0.1 MG/ML) ONE (18:16)
[2021-02-06] MEDS ORDERED: DEXTROSE 5% IN WATER 50 ML BAG ONE (18:16)
[2021-02-06] MEDS ORDERED: AMIODARONE 50 MG/ML 3 ML VIAL IV ONE (18:16)
[2021-02-06 18:49] LABS: Calcium 7.8 mg/dL (8.4-10.2)
--- NOTE | 2021-02-06 19:23 | P.EN ---
code blue note patient went into Vfib arrest , CPR initiated following ACLS protocol , he required one epi and was shocked once, with successful ROSC cardiology notified, and started patient on amiodarone drip please refer to paper chart for exact timing and meds given
[2021-02-06] MEDS ORDERED: LIDOCAINE-D5W PMX 2G/250ML 2,000 MG in DEXTROSE/WATER 1 250ML.BAG IV SCH (20:00)
[2021-02-06 21:10] VITALS: TEMP 100.2
--- NOTE | 2021-02-06 21:25 | P.EN ---
Code Blue Pulseless V fib at 182, defib with 300 joules and return to normal sinus rhythm. Stat BMP, Mg ordered. Patient had been taken off amio gtt and transitioned to oral this afternoon. Cardio contacted about restarting amio by nursing and agreed with the plan. V fib at 1851, De fib at 300 X 1 with return to normal sinus rhythm. Amio was ju st being hung,ordered 150 mg bolus and then gtt. Labs now available and reviewed K+ 4 and Mg 3. repeat EKG pending. Notified Dr. Mason and Dr. Forrester via perfect serve, family notified by nursing Notified: V fib arrest STEMI s/p PCI 01/31 Ischemic systolic cardiomyopathy ef 25-30% - amio bouls and gtt - tele - K+ and Mg optimized - Dr. Duran to f/u on EKG A Total of 32 minutes of critical care time was spent on the complex care of this patient.
[2021-02-06] MEDS: SODIUM CHLORIDE 0.9% 1,000 ML IV SCH (21:48)
[2021-02-06] MEDS ORDERED: MORPHINE SULFATE 4 MG/ML SYRINGE IV PRN (22:00)
[2021-02-06 22:10] VITALS: PULSE 53
[2021-02-07] MEDS ORDERED: VANCOMYCIN TROUGH DUE 1 EACH MISC MISCELLANE ONE (07:00)
--- NOTE | 2021-02-07 16:36 | P.DS ---
Providers Date of admission: 01/31/21 12:30 Expected date of discharge: 02/06/21 ( 02/06/2021 10:16 PM.) Attending physician: Adam Forrester Consults: 01/31/21 14:40 Consult Physician Stat Consulting Provider: Oswald Jones Consult Reason/Comments: stemi Do you want consulting provider notified?: Already Contacted 01/31/21 15:01 Consult Physician Routine Consulting Provider: Rhys Lunsford Consult Reason/Comments: ICU management Do you want consulting provider notified?: Already Contacted Consult Physician Stat Consulting Provider: Rhys Lunsford Consult Reason/Comments: Acute pulmonary edema Do you want consulting provider notified?: Yes Primary care physician: Adam Forrester Discharge note Disposition: , 10:16 PM on 02/06/2021. Mr. Clovis alatorre 70 years old white male retired Final diagnosis: 1 status post cardiac arrest, V. fib, resuscitation, recurrent. #2 underlying acute transmural myocardial infarction. #3 coronary artery thrombosis with occlusion status progressed PCI and stent on the left and anterior descending. Subtotal occlusion of the right coronary artery. With a 3 vessel disease. #4 ischemic cardiomyopathy with an ejection fraction 25% was in the past 60%. #5 diabetes mellitus type 2 on insulin in the hospital #6 COPD with the underlying history of the chronic pain dependence. #Depression, anxiety, bipolar. ER presentation Presented to the ER with shortness of breath, found elevated troponin, ST segment elevation in the anterior leads. Rales on his chest x-ray showed pulmonary edema from ER to cardiac cath directly where he underwent PCI and stenting of the LAD and found to have multiple coronary artery occlusive disease was done by Dr. Meier. Hospital course: Patient admitted to the ICU after he was intubated and started on ventilator for supportive his breathing. In ICU and previously seen by pulmonary and critical care Jonn and the cardiology follow-up and patient was on left ventricular assist device with Impala. Diabetes mellitus was fairly controlled with insulin drip. He has multiple problem with pneumonia. The sputum staph aureus methicillin- resistant patient already started on vancomycin as he was already on cefepime 2 g every 12 hours Patient also on heparin infusion protocol and he is on Demerol antiplatelet with the presence of the stent. He also was on Lasix drip as well as feeding tube, Banda catheter, arterial line, and his renal perfusion with the urine output was stable. The the left ventricular assist catheter removed on Thursday. Patient started to have ventricular fibrillation intermittent started on amiodarone by Dr. Cooper cardiology. Subsequently during the evening he has repeated ventricular fibrillation and oriented twice. After the CPR failed in the presence hospitalist during the night directed CPR and the sustentation Patient pronounced at 10:16 PM Plan - Discharge Summary New Discharge Prescriptions: No Action Pravastatin Sodium [Pravachol] 40 mg PO HS hydrALAZINE HCL [Apresoline] 50 mg PO BID Losartan Potassium [Cozaar] 100 mg PO DAILY RX: [place] Carbonate 300 mg PO BID Levothyroxine Sodium [Synthroid] 50 mcg PO DAILY Glimepiride [Amaryl] 2 mg PO DAILY RX: Fluticasone Nasal [place] [Flonase Nasal [place]] 1 spray EA NOSTRIL BID PRN PRN Reason: Congestion DULoxetine HCL [Cymbalta] 60 mg PO DAILY busPIRone HCL [Buspar] 30 mg PO BID ALPRAZolam [Xanax] 0.25 mg PO BID Tamsulosin HCl [Flomax] 0.4 mg PO BID RX: Lactulose [Cephulac] 20 gm PO BID Finasteride [Proscar] 5 mg PO DAILY buPROPion HCL [buPROPion HCL SR] 150 mg PO BID ALPRAZolam [Xanax] 0.25 mg PO DAILY PRN PRN Reason: Anxiety amLODIPine [Norvasc] 10 mg PO HS Discharge Medication List ALPRAZolam [Xanax] 0.25 mg PO BID 01/31/21 [History] ALPRAZolam [Xanax] 0.25 mg PO DAILY PRN 01/31/21 [History] DULoxetine HCL [Cymbalta] 60 mg PO DAILY 01/31/21 [History] Finasteride [Proscar] 5 mg PO DAILY 01/31/21 [History] Fluticasone Nasal [place] [Flonase Nasal [place]] 1 spray EA NOSTRIL BID PRN 01/31/21 [History] Glimepiride [Amaryl] 2 mg PO DAILY 01/31/21 [History] Lactulose [Cephulac] 20 gm PO BID 01/31/21 [History] Levothyroxine Sodium [Synthroid] 50 mcg PO DAILY 01/31/21 [History] [place] Carbonate 300 mg PO BID 01/31/21 [History] Losartan Potassium [Cozaar] 100 mg PO DAILY 01/31/21 [History] Pravastatin Sodium [Pravachol] 40 mg PO HS 01/31/21 [History] Tamsulosin HCl [Flomax] 0.4 mg PO BID 01/31/21 [History] amLODIPine [Norvasc] 10 mg PO HS 01/31/21 [History] buPROPion HCL [buPROPion HCL SR] 150 mg PO BID 01/31/21 [History] busPIRone HCL [Buspar] 30 mg PO BID 01/31/21 [History] hydrALAZINE HCL [Apresoline] 50 mg PO BID 01/31/21 [History] Follow up Appointment(s)/Referral(s): Oswald Jones MD [STAFF PHYSICIAN] - 1 Week Adam Forrester MD [Primary Care Provider] - 1-2 days Discharge Disposition: - Preliminary Cause of Preliminary Cause of : STEMI, acute coronary artery occlusion, acute myocardial infarction
--- NOTE | 2021-02-14 10:14 | CDI ---
Documentation Clarification Form Mortality Review Date: 02/14/2021 09:56:33 AM From: Tahmina Babb RN, CCDS Admit Date: 01/31/2021 12:30:00 PM Patient Name: Clovis Nicolas Visit Number: [id number] Discharge Date: 02/06/2021 10:16:00 PM ATTENTION: The Clinical Documentation Specialists (CDI) and [facility] Coding Staff appreciate your assistance in clarifying documentation. Please respond to the clarification below the line at the bottom and electronically sign. The CDI & [facility] Coding staff will review the response and follow-up if needed. Please note: Queries are made part of the Legal Health Record. If you have any questions, please contact the author of this message via ITS. Dr. Adam Machado Coccyx pressure ulcer is documented in the Nursing Pressure Injury Assessments from 02/04-02/06. Additional clarification regarding the confirmation of presence and stage of the pressure ulcer is requested. History/Risk Factors: Acute anterolateral ST segment AR, Cardiogenic shock with Impella placement and left in place from 01/31-02/05, VF cardiac arrest, Acute Hypoxic Respiratory failure, JULITO with ATN DM2, HTN, Chronic nicotine dependence,, Obesity with BMI 37 Clinical Indicators: Location: Coccyx Wound description: Hospital Acquired, not device related, DTI 18cm x 9cm, duoderm applied There is a color photo scanned into [employer] Treatment: Consults: Duoderm Please clarify the presence of, stage of, and POA status of the coccyx pressure ulcer documented by nursing, if known: [ ] Deep tissue injury Coccyx [ ] Stage 1 Pressure Ulcer Coccyx [ ] Stage 2 Pressure Ulcer Coccyx [ ] Stage 3 Pressure Ulcer Coccyx [ ] Stage 4 Pressure Ulcer Coccyx [ ] Unstageable Pressure ulcer Coccyx [ ] Other condition, please specify [ ] Unable to determine Clinical Definitions: Stage 1 Pressure Ulcer: intact skin, non-blanching redness of local area Stage 2 Pressure Ulcer: Partial thickness, loss of dermis, pink wound bed Stage 3 Pressure Ulcer: Full thickness tissue loss Stage 4 Pressure Ulcer: Full thickness tissue loss with exposed bone, tendon, or muscle. Unstageable pressure ulcer: Full thickness tissue loss in which the base of the ulcer is covered by slough (yellow, wolff, hector, green or brown) and/or eschar (wolff, brown or black) in the wound bed. (Template Last Revised: November 2020) MTDD
--- NOTE | 2021-02-14 11:04 | CDI ---
Documentation Clarification Form Mortality Review Date: 02/14/2021 10:30:44 AM From: Tahmina Babb RN, CCDS Admit Date: 01/31/2021 12:30:00 PM Patient Name: Clovis Nicolas Visit Number: [id number] Discharge Date: 02/06/2021 10:16:00 PM ATTENTION: The Clinical Documentation Specialists (CDI) and [facility] Coding Staff appreciate your assistance in clarifying documentation. Please respond to the clarification below the line at the bottom and electronically sign. The CDI & [facility] Coding staff will review the response and follow-up if needed. Please note: Queries are made part of the Legal Health Record. If you have any questions, please contact the author of this message via ITS. Dr. Adam Forrester Unspecified CKD is documented in your notes on 02/04 and 02/05 and requires further specificity. Additional clarification regarding the stage of CKD is requested. History/Risk Factors: 09/17/2021 Patients Historical BUN/CR/GFR: 15/.9/87.[address]-segment elevation myocardial infarction, COPD, JULITO with ATN, Cardiogenic shock, acute hypoxic respiratory failure, MO, BEH, tobacco dependence Clinical Indicators: 02/04 Attending Progress note: "Sputum found to be presumptive staph aureus, I did speak with the pharmacist and was started vancomycin pharmacy to dose and frequency to be judged with the underlying chronic kidney disease with the associated acute kidney injury on admission secondary to prerenal drop off his ejection fraction to 25% record indicating his ejection fraction was 60%." 02/05 Attending Progress note: "Benign chronic kidney disease stage LXX admitted with acute kidney injury with the prerenal in nature, with drop of his ejection fraction from 60-25." 01/31-02/06 Current BUN: 21/30/39/50/66/70 CR: 1.1//1.55/1.61/1.58/1.67/1.48 GFR: 69/45/44/44/42/48 Treatment: 02/04-02/06 Dobutamine Gtt @ 2.5 mcg/kg/min 01/31 Lasix 40 mg IVP OT x 2 doses followed by at Lasix Gtt @ 10 mg/hr. until 02/02 02/04-02/06 Levophed Gtt- titrate for B/P 02/03 500 cc 0.9% NS IVF Bolus Please clarify the stage of the CKD, if known: [ ] CKD Stage 1 (GFR > 90) [ ] CKD Stage 2 (GFR 60-89) [ ] CKD Stage 3 (GFR 30-59) [ ] CKD Stage 3a (GFR 45-59) [ ] CKD Stage 3b (GFR 30-44) [ ] CKD Stage 4 (GFR 15-29) [ ] CKD Stage 5 (GFR <15) [ ] ESRD [ ] Other, please specify [ ] Unable to determine (Template last revised: October 2020) ___Stage II chronic kidney disease MTDD
--- NOTE | 2021-02-19 13:52 | CDI ---
Documentation Clarification Form Mortality Review 2nd Request Date: 02/14/2021 09:56:33 AM From: Tahmina Babb RN, CCDS Admit Date: 01/31/2021 12:30:00 PM Patient Name: Clovis Nicolas Visit Number: [id number] Discharge Date: 02/06/2021 10:16:00 PM ATTENTION: The Clinical Documentation Specialists (CDI) and [facility] Coding Staff appreciate your assistance in clarifying documentation. Please respond to the clarification below the line at the bottom and electronically sign. The CDI & [facility] Coding staff will review the response and follow-up if needed. Please note: Queries are made part of the Legal Health Record. If you have any questions, please contact the author of this message via ITS. Dr. Adam Forrester A Coccyx pressure ulcer is documented in the Nursing Pressure Injury Assessments from 02/04-02/06. Additional clarification regarding the confirmation of presence and stage of the pressure ulcer is requested. History/Risk Factors: Acute anterolateral ST segment AR, Cardiogenic shock with Impella placement and left in place from 01/31-02/05, VF cardiac arrest, Acute Hypoxic Respiratory failure, JULITO with ATN DM2, HTN, Chronic nicotine dependence,, Obesity with BMI 37 Clinical Indicators: Location: Coccyx Wound description: Hospital Acquired, not device related, DTI 18cm x 9cm, Duoderm applied There is a color photo scanned into [employer] Treatment: Consults: Duoderm Please clarify the presence of, stage of, and POA status of the coccyx pressure ulcer documented by nursing, if known: [ ] Deep tissue injury Coccyx [ ] Stage 1 Pressure Ulcer Coccyx [ ] Stage 2 Pressure Ulcer Coccyx [ ] Stage 3 Pressure Ulcer Coccyx [ ] Stage 4 Pressure Ulcer Coccyx [ ] Unstageable Pressure ulcer Coccyx [ ] Other condition, please specify [ x] Unable to determine Clinical Definitions: Stage 1 Pressure Ulcer: intact skin, non-blanching redness of local area Stage 2 Pressure Ulcer: Partial thickness, loss of dermis, pink wound bed Stage 3 Pressure Ulcer: Full thickness tissue loss Stage 4 Pressure Ulcer: Full thickness tissue loss with exposed bone, tendon, or muscle. Unstageable pressure ulcer: Full thickness tissue loss in which the base of the ulcer is covered by slough (yellow, wolff, hector, green or brown) and/or eschar (wolff, brown or black) in the wound bed. (Template Last Revised: November 2020) unable to determine, pt. was on vent, with mechanical ventilation MTDD
== END 2021-02-06 22:16 | disposition expired | DRG 215 ==
LOC: EC 12:05 → 2SICU 12:30
PROVIDERS: ADMIT Internal Medicine; ATTEND Internal Medicine
PROC: 5A09357 Assistance with Respiratory Ventilation, Less than 24 Consecutive Hours, Continuous Positive Airway Pressure (ICD-10-PCS; 2021-01-31)
PROC: B2111ZZ Fluoroscopy of Multiple Coronary Arteries using Low Osmolar Contrast (ICD-10-PCS; 2021-01-31)
PROC: 4A023N7 Measurement of Cardiac Sampling and Pressure, Left Heart, Percutaneous Approach (ICD-10-PCS; principal; 2021-01-31 17:45)
PROC: 02HA3RZ Insertion of Short-term External Heart Assist System into Heart, Percutaneous Approach (ICD-10-PCS; principal; 2021-01-31 17:45)
PROC: 4A133J1 Monitoring of Arterial Pulse, Peripheral, Percutaneous Approach (ICD-10-PCS; principal; 2021-01-31 17:45)
PROC: 027034Z Dilation of Coronary Artery, One Artery with Drug-eluting Intraluminal Device, Percutaneous Approach (ICD-10-PCS; principal; 2021-01-31 17:45)
PROC: 5A0221D Assistance with Cardiac Output using Impeller Pump, Continuous (ICD-10-PCS; principal; 2021-01-31 17:45)
PROC: 4A133B1 Monitoring of Arterial Pressure, Peripheral, Percutaneous Approach (ICD-10-PCS; principal; 2021-01-31 17:45)
PROC: 03HY32Z Insertion of Monitoring Device into Upper Artery, Percutaneous Approach (ICD-10-PCS; principal; 2021-01-31 17:45)
PROC: B41F1ZZ Fluoroscopy of Right Lower Extremity Arteries using Low Osmolar Contrast (ICD-10-PCS; principal; 2021-01-31 17:45)
PROC: 0BH17EZ Insertion of Endotracheal Airway into Trachea, Via Natural or Artificial Opening (ICD-10-PCS; 2021-01-31 17:45)
PROC: 0D9670Z Drainage of Stomach with Drainage Device, Via Natural or Artificial Opening (ICD-10-PCS; 2021-01-31 17:45)
PROC: 5A1955Z Respiratory Ventilation, Greater than 96 Consecutive Hours (ICD-10-PCS; 2021-01-31 17:45)
PROC: 06HN33Z Insertion of Infusion Device into Left Femoral Vein, Percutaneous Approach (ICD-10-PCS; 2021-02-01)
PROC: 3E0G76Z Introduction of Nutritional Substance into Upper GI, Via Natural or Artificial Opening (ICD-10-PCS; 2021-02-01)
PROC: 02PA3RZ Removal of Short-term External Heart Assist System from Heart, Percutaneous Approach (ICD-10-PCS; 2021-02-05)
PROC: B2151ZZ Fluoroscopy of Left Heart using Low Osmolar Contrast (ICD-10-PCS; 2021-02-05)
PROC: 3E043XZ Introduction of Vasopressor into Central Vein, Percutaneous Approach (ICD-10-PCS; 2021-02-06)
PROC: 5A12012 Performance of Cardiac Output, Single, Manual (ICD-10-PCS; 2021-02-06)
PROC: 5A12012 Performance of Cardiac Output, Single, Manual (ICD-10-PCS; 2021-02-06)
DX: I21.09 ST elevation (STEMI) myocardial infarction involving other coronary artery of anterior wall (principal); I50.21 Acute systolic (congestive) heart failure; J96.01 Acute respiratory failure with hypoxia; N17.0 Acute kidney failure with tubular necrosis; J15.212 Pneumonia due to Methicillin resistant Staphylococcus aureus; I13.0 Hypertensive heart and chronic kidney disease with heart failure and stage 1 through stage 4 chronic kidney disease, or unspecified chronic kidney disease; E87.4 Mixed disorder of acid-base balance; I47.2 Ventricular tachycardia; J98.11 Atelectasis; Z16.24 Resistance to multiple antibiotics; R57.0 Cardiogenic shock; E11.22 Type 2 diabetes mellitus with diabetic chronic kidney disease; E11.65 Type 2 diabetes mellitus with hyperglycemia; E66.01 Morbid (severe) obesity due to excess calories; F31.9 Bipolar disorder, unspecified; I46.2 Cardiac arrest due to underlying cardiac condition; I49.01 Ventricular fibrillation; J43.9 Emphysema, unspecified; E11.40 Type 2 diabetes mellitus with diabetic neuropathy, unspecified; I25.5 Ischemic cardiomyopathy; Z20.822 Contact with and (suspected) exposure to COVID-19; E88.81 Metabolic syndrome and other insulin resistance; I25.10 Atherosclerotic heart disease of native coronary artery without angina pectoris; E78.5 Hyperlipidemia, unspecified; N18.2 Chronic kidney disease, stage 2 (mild); E78.00 Pure hypercholesterolemia, unspecified; E03.9 Hypothyroidism, unspecified; F41.9 Anxiety disorder, unspecified; N40.0 Benign prostatic hyperplasia without lower urinary tract symptoms; K59.00 Constipation, unspecified; M47.812 Spondylosis without myelopathy or radiculopathy, cervical region; G89.29 Other chronic pain; Z68.38 Body mass index [BMI] 38.0-38.9, adult; F17.210 Nicotine dependence, cigarettes, uncomplicated; Z79.890 Hormone replacement therapy; Z79.84 Long term (current) use of oral hypoglycemic drugs; Z79.899 Other long term (current) drug therapy; Z71.3 Dietary counseling and surveillance; Z88.0 Allergy status to penicillin
CPT/HCPCS: 71045; 80048; 80053; 80061; 82805; 83605; 83615; 83735; 83880; 84132; 84484; 85025; 85379; 85384; 85610; 85730; 87040; 87070; 87077; 87086; 87186; 87205; 87635; 93005; 93306; 93454; 93458; 94002; 94003; 94660; 99285